=== PATIENT | female | born 1940 | race Caucasian/White ===

== ENCOUNTER 2020-11-23 16:10 | Inpatient (IN) | payer MEDICARE, SELFPAY ==
--- NOTE | ~2020-11-23 | XR_ITS ---
EXAMINATION: XR ABDOMEN KUB CLINICAL INDICATION: Bowel obstruction COMPARISON: None TECHNIQUE: AP view of the abdomen. FINDINGS: There is a mildly dilated small bowel loop in the left mid abdomen consistent with a mild small bowel bowel obstruction. No dilatation of large bowel. No radiopaque urinary calculi. Multilevel degenerative spondylosis of the spine. XR/XR KUB IMPRESSION: Dilated small bowel loops left midabdomen consistent with small bowel obstruction.
[2020-11-23 16:33] VITALS: BP 124/45; PULSE 87; RESP 16; TEMP 36.7; O2SAT 96; BMI 45.5
[2020-11-23 16:43] VITALS: BP 124/45; PULSE 87; RESP 16; TEMP 36.7; O2SAT 96
--- NOTE | 2020-11-23 17:19 | ED.ABDPAIN ---
HPI - Abdominal Pain General Chief Complaint: Abdominal Pain Stated Complaint: abd pain Time Seen by Provider: 11/23/20 17:19 Source: patient Mode of arrival: EMS Limitations: no limitations History of Present Illness HPI narrative: Patient had a fecal impaction in the past and a bowel obstruction in the past. Patient has had multiple surgeries for colon cancer. This has been starting for the past 2 days with increased abdominal distention. MD elicited complaint: abdominal pain Pertinent past history: constipation and other (bowel obstruction) Onset (ago): day(s) Pain Consistency: constant Location: periumbilical Severity: moderate Quality: aching and fullness Radiation: none Exacerbating factors: eating Relieving factors: nothing Associated symptoms: nausea and vomiting Related Data Home Medications Medication Instructions Recorded Confirmed albuterol sulfate 2.5 mg INHALATION Q4H PRN 11/23/20 11/23/20 albuterol sulfate [Ventolin HFA] 2 puff INHALATION Q6H PRN 11/23/20 11/23/20 amlodipine 5 mg PO DAILY 11/23/20 11/23/20 calcium carbonate-vitamin D3 1 cap PO DAILY 11/23/20 11/23/20 celecoxib [Celebrex] 200 mg PO BID 11/23/20 11/23/20 fexofenadine 180 mg PO DAILY 11/23/20 11/23/20 fluticasone propionate 1 spray INTRANASAL DAILY 11/23/20 11/23/20 gabapentin 400 mg PO TID 11/23/20 11/23/20 lisinopril 10 mg PO DAILY 11/23/20 11/23/20 mirtazapine 7.5 mg PO BEDTIME 11/23/20 11/23/20 multivitamin 1 tab PO DAILY 11/23/20 11/23/20 olopatadine 1 drp OPHTHALMIC (EYE) DAILY 11/23/20 11/23/20 omeprazole 20 mg PO BID 11/23/20 11/23/20 Allergies Allergy/AdvReac Type Severity Reaction Status Date / Time No Known Allergies Allergy Verified 11/24/20 14:58 Review of Systems Constitutional: Reports no additional constitutional complaints Eyes: Reports no additional eye complaints Denies dizziness Cardiovascular: Reports no additional cardiovascular complaints Respiratory: Reports as per HPI Gastrointestinal: Reports no additional gastrointestinal complaints Genitourinary: Reports no additional female genitourinary complaints Musculoskeletal: Reports no additional musculoskeletal complaints Skin/Breast: Denies rash Reports system reviewed and no additional complaints, except as documented, Denies dizziness and Denies Sensory deficit (Neuro) Psychiatric: Denies anxiety Physical Exam Vital Signs: Vital Signs: Last Vital Signs Temp 96.8 F 11/28/20 10:53 Pulse 78 11/28/20 10:53 Resp 20 11/28/20 10:53 BP 145/62 H 11/28/20 10:53 Pulse Ox 98 11/28/20 10:53 Body Mass Index 45.5 Const: Nutritional Appearance: obese Orientation/consciousness: oriented to person and patient oriented x3 Limitations: no limitations HENMT: Head: Yes normal to inspection Ears: external ears normal General nose exam: Normal external nose present Mouth: Normal oral and palatal mucosa present and oropharynx normal Throat: Yes posterior oropharynx normal Eyes: General: appearance normal, both eyes and all related structures Neck: Other: supple Neck: Yes normal visual inspection Chest: Chest palpation & inspection: normal inspection of the chest Resp: Auscultation: clear to auscultation bilaterally Cardio: Jugular venous distension: no JVD Rate: regular rate Rhythm: regular rhythm Heart sounds: S1 normal heart sound present and S2 normal heart sound present GI: Other: distended, hard, decreased BS, rectal no fecal impaction, no stool in vault : General: Yes no CVA tenderness Back/Spine/Pelvis: Back: no CVA tenderness Skin: General skin exam: no rashes or lesions noted Neuro: General: oriented to person and patient oriented x3 Cranial nerves: Yes CN's II-XII intact bilaterally Motor exam (neuro): 5/5 motor strength present throughout Sensory Exam: No Sensory deficit (Neuro) Extrem: General: Yes normal to inspection Psych: Appearance: grossly normal Course Course Course Narrative: patient with small bowel obstruction will admit and place NGT Reevaluation(s) Reevaluation #1: discussed with Dr. Butler, will admit Time: 19:06 MDM - Abdominal Pain Differential Diagnosis Differential diagnosis: Likely abdominal pain, bowel perforation, constipation and small bowel obstruction Differential diagnosis narrative:: History and KUB consistent with SBO will admit Lab Data Result diagrams: 11/25/20 05:43 11/28/20 04:11 Labs: Lab Results 11/23/20 11/23/20 Range/Units 17:43 17:43 WBC 13.3 H (4.8-10.8) X10*3/uL RBC 4.56 (4.20-5.50) X10*6/uL Hgb 13.3 (12.0-16.0) g/dl Hct 41.8 (37-47) % MCV 91.7 (80-98) fL MCH 29.2 (27.0-33.0) pg MCHC 31.8 (31.0-35.0) g/dl RDW 14.3 (11.0-16.0) % Plt Count 317 (160-400) X10*3/uL MPV 9.9 (9.4-12.3) fL Immature Gran % (Auto) 0.5 H (0.0-0.4) % Neut % (Auto) 74.3 H (45-73) % Lymph % (Auto) 18.6 L (20-40) % [place] % (Auto) 5.6 (2-11) % Eos % (Auto) 0.8 (0-4) % Baso % (Auto) 0.2 (0-2) % Lymph # (Auto) 2.5 (1.2-4.9) X10*3/uL [place] # (Auto) 0.8 (0.1-1.2) X10*3/uL Eos # (Auto) 0.1 (0.0-0.4) X10*3/uL Baso # (Auto) 0.0 (0.0-0.2) X10*3/uL Abs Immat Gran (auto) 0.06 H (0.00-0.03) X10*3/uL Absolute Neuts (auto) 9.9 H (2.0-8.3) X10*3/uL Absolute Nucleated RBC 0.000 (0.0-0.012) X10*3/uL Nucleated RBC % (auto) 0.0 (0.0-0.2) /100WBC Sodium 137 (135-145) mmol/L Potassium 4.9 (3.3-5.1) mmol/L Chloride 98 (96-108) mmol/L Carbon Dioxide 26 (22-29) mmol/L Anion Gap 18 (12-20) BUN 28 H (9-16) mg/dL Creatinine 0.95 (0.5-1.4) mg/dL Estim Creat Clear Calc 60.1 Estimated GFR 57 Random Glucose 119 H (60-115) mg/dL Calcium 9.5 (8.4-10.2) mg/dL Total Bilirubin 0.5 (0.0-1.0) mg/dL Direct Bilirubin 0.2 (0.0-0.5) mg/dL AST 26 (5-31) U/L ALT 22 (0-31) U/L Alkaline Phosphatase 59 (39-117) U/L Total Protein 7.0 (6.5-8.0) g/dL Albumin 4.0 (3.5-5.0) g/dL Lipase 20 (8-78) U/L Discharge Plan Discharge Clinical Impression: Small bowel obstruction Patient Disposition: Admitted As Inpatient Interventions: Admission Worksheet (ED) Last Done: 11/23/20 21:48 Discharge Date/Time: 11/23/20 21:49 [facility] Past Medical History Medical History (Updated 12/06/20 @ 00:01 by Mikaela Sow) Arthritis Asthma Fibromyalgia History of bronchitis Morbid obesity due to excess calories Surgical History (Updated 11/24/20 @ 14:56 by Milena Moore MD) History of bilateral knee replacement History of bunionectomy of right great toe History of section, classical History of partial colectomy History of total colectomy Family History Family History (Updated 11/24/20 @ 14:57 by Milena Moore MD) Mother Congestive heart failure Father Colon cancer Daughter No problems noted. Daughter No problems noted. Social History Social History (Updated 11/24/20 @ 14:57 by Milena Moore MD) Household Members: None Housing: Assisted Living Facility Do you presently have visiting nurse or other home services: Yes Alcohol intake: never service: No Current occupational status: unemployed and disabled
[2020-11-23 17:50] LABS: MANUAL DIFF FLAG NO
[2020-11-23 17:54] LABS: Basophils Percent Auto 0.2 % (0-2); Eosinophils Absolute Auto 0.1 X10*3/uL (0.0-0.4); Eosinophils Percent Auto 0.8 % (0-4); Hematocrit 41.8 % (37-47); Hemoglobin 13.3 g/dl (12.0-16.0); Imm Gran Abs Auto 0.06 X10*3/uL (0.00-0.03); Imm Gran Pct Auto 0.5 % (0.0-0.4); Lymphocytes Absolute Auto 2.5 X10*3/uL (1.2-4.9); Lymphocytes Percent Auto 18.6 % (20-40); Mean Corpuscular HGB Conc 31.8 g/dl (31.0-35.0); Mean Corpuscular Hemoglobin 29.2 pg (27.0-33.0); Mean Corpuscular Volume 91.7 fL (80-98); Mean Platelet Volume 9.9 fL (9.4-12.3); Monocytes Absolute Auto 0.8 X10*3/uL (0.1-1.2); Monocytes Percent Auto 5.6 % (2-11); Neutrophils Absolute Auto 9.9 X10*3/uL (2.0-8.3); Neutrophils Percent Auto 74.3 % (45-73); Platelet Count 317 X10*3/uL (160-400); Red Blood Count 4.56 X10*6/uL (4.20-5.50); Red Cell Distribution Width 14.3 % (11.0-16.0); White Blood Count 13.3 X10*3/uL (4.8-10.8)
[2020-11-23] MEDS: ondansetron HCL 4 MG/2 ML VIAL IVPUSH (18:12)
[2020-11-23] MEDS: 0.9 % Sodium Chloride 1,000 ML 125 ML IVCONT (18:12)
[2020-11-23 18:15] LABS: Alanine Aminotransferase 22 U/L (0-31); Alkaline Phosphatase 59 U/L (39-117); Anion Gap 18 (12-20); Aspartate Amino Transferase 26 U/L (5-31); Bilirubin Direct 0.2 mg/dL (0.0-0.5); Bilirubin Total 0.5 mg/dL (0.0-1.0); Blood Urea Nitrogen 28 mg/dL (9-16); Calcium 9.5 mg/dL (8.4-10.2); Carbon Dioxide 26 mmol/L (22-29); Chloride 98 mmol/L (96-108); Creatinine Clr Calc Pharmacy 60.1; Estimated Glomerular Filt Rate 57; Glucose Random 119 mg/dL (60-115); Lipase 20 U/L (8-78); Potassium 4.9 mmol/L (3.3-5.1); Sodium 137 mmol/L (135-145)
[2020-11-23 20:25] LABS: COVID-19 Test Negative (Negative)
[2020-11-23 22:17] VITALS: BP 149/67; PULSE 85; RESP 16; TEMP 36.3; O2SAT 97
[2020-11-23] MEDS: Heparin Sodium,Porcine 5,000 UNIT/ML VIAL 5000 UNIT SUBCUT (22:31)
[2020-11-23] MEDS: 0.9 % Sodium Chloride 1,000 ML 100 ML IVCONT (22:31)
[2020-11-23] MEDS: 0.9 % Sodium Chloride Flush 3 ML SYRINGE IVFLUSH (22:31)
[2020-11-23 23:49] VITALS: BP 163/63; PULSE 89; RESP 16; TEMP 36.1; O2SAT 95
[2020-11-24] VITALS (7 sets, daily range): BP systolic 128–158; BP diastolic 52–61; PULSE 76–90; RESP 16–18; TEMP 36.1–37.4; O2SAT 93–95
[2020-11-24] MEDS: Morphine Sulfate 4 MG/ML CARTRIDGE IVPUSH (00:38)
[2020-11-24] MEDS: Heparin Sodium,Porcine 5,000 UNIT/ML VIAL 5000 UNIT SUBCUT ×3 (06:04→21:24)
[2020-11-24] MEDS: 0.9 % Sodium Chloride 1,000 ML 100 ML IVCONT ×2 (06:06→16:37)
--- NOTE | 2020-11-24 13:44 | P.HPGS_ITS ---
History of Present Illness History of Present Illness Date of Service: 11/24/20 Chief complaint: Small bowel obstruction Narrative: Ginny Tovar is a 80 year old female with a history of a partial colectomy and a completion colectomy who has a history of small-bowel obstructions previously. Patient presented to the emergency department yesterday after having a 2 day history of abdominal distention and central abdominal pain that radiated from the left to right that she reports became greater than a 10/10 on a pain scale. She reports 3 days ago she had a lobster and thereafter became distended. Her last bowel movement was 3 days ago but she reports having a small bowel movement this morning. She reports having burping in acid reflux once she had decrease in bowel function. Her last known bowel obstruction was in 2009. Patient had some nausea and vomiting 2 days ago. She reports her abdominal pain is significantly improved since admission and is down to 5/10. She no longer has nausea or vomiting. Patient's last colonoscopy was in August of this year and was reported to be normal. Patient has not been out of bed to ambulate. She reports she still is not passing much gas from her bottom although she has had 2 small bowel movements since admission 1 last night in the emergency department. She denies fever, chills, chest pain. She has mild shortness of breath with exertion. Review of Systems Constitutional: Constitutional: Denies chills, Reports difficulty sleeping, Denies excessive sweating, Reports fatigue, Denies fever(s), Denies headache(s), Denies night sweats, Reports weakness and Denies weight loss Eyes: Eyes: Denies blurry vision, Denies diplopia, Denies eye discharge and Reports requires corrective lenses ENT: Reports Normal hearing present, Denies change in voice, Denies headache(s), Denies neck mass, Denies sore throat, Denies throat swelling and Denies tongue swelling Cardiovascular: Cardiovascular: Denies chest pain, Denies chest pain at rest, Denies chest pain with activity, Denies edema, Denies leg edema and Denies dyspnea on exertion Respiratory: Respiratory: Denies cough, Denies excessive phlegm production, Denies dyspnea on exertion, Denies stridor and Denies wheezing Gastrointestinal: Gastrointestinal: Reports abdominal pain, Denies melena, Denies bloating, Denies hematochezia, Denies constipation, Reports heartburn, Denies nausea and Denies vomiting Genitourinary: Genitourinary: Denies hematuria, Denies dysuria, Reports urinary incontinence, Denies urinary hesitancy and Denies urinary urgency Musculoskeletal: Musculoskeletal: Denies back pain, Reports arthralgias and Reports muscle weakness Integumentary/Breasts: Skin/Breast: Denies breast swelling, Denies breast pain, Denies breast mass, Denies change in pigmentation, Denies new lesions and Denies rash Neurologic: Reports Normal hearing present, Denies confusion, Denies headache(s), Denies lack of coordination, Denies focal weakness, Denies paresthesias and Reports weakness Psychiatric: Psychiatric: Denies anxiety, Denies confusion and Denies depression Endocrine: Endocrine: Denies cold intolerance, Denies excessive sweating and Reports fatigue Hematologic/Lymphatic: Hematologic/Lymphatic: Denies easy bleeding, Denies easy bruising and Denies lymphadenopathy Allergic/Immunologic: Allergic/Immunologic: Denies urticaria, Denies throat swelling, Denies tongue swelling and Denies wheezing PMFSH Past Medical History Medical History (Updated 11/24/20 @ 14:56 by Milena Moore MD) Arthritis Asthma Fibromyalgia History of bronchitis Morbid obesity due to excess calories Family History Family History (Updated 11/24/20 @ 14:57 by Milena Moore MD) Mother Congestive heart failure Father Colon cancer Daughter No problems noted. Daughter No problems noted. Surgical History Surgical History (Updated 11/24/20 @ 14:56 by Milena Moore MD) History of bilateral knee replacement History of bunionectomy of right great toe History of section, classical History of partial colectomy History of total colectomy Social History Social History (Updated 11/24/20 @ 14:57 by Milena Moore MD) Household Members: None Housing: Assisted Living Facility Do you presently have visiting nurse or other home services: Yes Alcohol intake: never Smoking Status: Former smoker Smoking Quit Date: 1983 Use of substances other than those prescribed or required for medical reasons: No Currently Displaying Signs/Symptoms of Drug Intoxication Withdrawal: No Have you been hit, kicked, punched, or otherwise hurt by someone within the past year? If so, by whom?: No Do you feel safe in your current relationship?: Yes Is there a partner from a previous relationship who is making you feel unsafe now?: No Are you made to feel afraid or neglected: No Advance Directives: No Advance Directives Information Provided: No Do you have thoughts of harming others: None Do you have a plan to hurt others: No Plan Recently lost weight without trying: No Nutrition Risks: No Nutritional Risk Patient : No : No Poor oral hygiene: No service: No Current occupational status: unemployed and disabled Meds Allergies Allergy/AdvReac Type Severity Reaction Status Date / Time No Known Allergies Allergy Verified 11/24/20 14:58 Active Medications: Current Medications Generic Name Dose Route Start Last Admin Trade Name Freq PRN Reason Stop Dose Admin Acetaminophen 650 mg 11/23/20 19:18 Acetaminophen 325 Mg Tablet PO Q6H PRN Fever >100.4 Diphenhydramine HCl 25 mg 11/23/20 19:18 Diphenhydramine Hcl 50 Mg/Ml Vial IVPUSH Q6H PRN Itching Heparin Sodium (Porcine) 5,000 unit 11/23/20 22:00 11/24/20 06:04 Heparin Sodium,Porcine 5,000 Unit/Ml Vial SUBCUT 5,000 unit Q8H FERNIE Administration Sodium Chloride 1,000 mls @ 100 mls/hr 11/23/20 19:30 11/24/20 06:06 Ns IVCONT 100 mls/hr .Q10H FERNIE Administration Morphine Sulfate 2 mg 11/23/20 19:18 Morphine Sulfate 2 Mg/Ml Cartridge IVPUSH Q3H PRN Pain, Moderate (Pain Scale 4-6 Morphine Sulfate 4 mg 11/23/20 19:18 11/24/20 00:38 Morphine Sulfate 4 Mg/Ml Cartridge IVPUSH 4 mg Q3H PRN Administration Pain, Severe (Pain Scale 7-10) Multi-Ingred Medicated Throat [place] 1 spray 11/24/20 09:11 Throat [place], Medicated 20 Ml Bottle MUCOUS MEM Q2H PRN Sore Throat Ondansetron HCl 4 mg 11/23/20 19:18 Ondansetron Hcl 4 Mg/2 Ml Vial IVPUSH Q4H PRN Nausea Sodium Chloride 3 ml 11/24/20 00:00 11/24/20 08:42 0.9 % Sodium Chloride Flush 3 Ml Syringe IVFLUSH Not Given QSHIFT ON LICENSE OF [facility] Home Medications Medication Instructions Recorded Confirmed Last Taken Type albuterol sulfate 2.5 mg INHALATION Q4H PRN 11/23/20 11/23/20 Unknown History albuterol sulfate [Ventolin HFA] 2 puff INHALATION Q6H PRN 11/23/20 11/23/20 Unknown History amlodipine 5 mg PO DAILY 11/23/20 11/23/20 11/23/20 History calcium carbonate-vitamin D3 1 cap PO DAILY 11/23/20 11/23/20 11/23/20 History [Calcium 600 with Vitamin D3] celecoxib [Celebrex] 200 mg PO BID 11/23/20 11/23/20 11/23/20 History fexofenadine 180 mg PO DAILY 11/23/20 11/23/20 11/23/20 History fluticasone propionate [Flonase] 1 spray INTRANASAL DAILY 11/23/20 11/23/20 11/23/20 History gabapentin 400 mg PO TID 11/23/20 11/23/20 11/23/20 History lisinopril 10 mg PO DAILY 11/23/20 11/23/20 11/23/20 History mirtazapine 7.5 mg PO BEDTIME 11/23/20 11/23/20 11/23/20 History multivitamin 1 tab PO DAILY 11/23/20 11/23/20 11/23/20 History olopatadine 1 drp OPHTHALMIC (EYE) DAILY 11/23/20 11/23/20 Unknown History omeprazole 20 mg PO BID 11/23/20 11/23/20 11/23/20 History Physical Exam Vital Signs: Vital Signs: Last Vital Signs Temp 97.4 F 11/24/20 12:00 Pulse 79 11/24/20 12:00 Resp 18 11/24/20 12:00 BP 158/61 H 11/24/20 12:00 Pulse Ox 95 11/24/20 12:00 Body Mass Index 45.5 Const: General: No confusion Orientation/consciousness: No confusion HENMT: Head: Yes normal to inspection, Yes normocephalic and Yes atraumatic Ears: hearing grossly normal bilaterally Mouth: Normal oral and palatal mucosa present Throat: Yes posterior oropharynx normal Eyes: General: appearance normal, both eyes and all related structures Sclerae: sclerae normal EOM: EOMs intact bilaterally Neck: Neck: Yes normal visual inspection, Yes no lymphadenopathy and Yes trachea midline Thyroid: Thyroid normal Resp: Effort & Inspection: normal respiratory effort and able to speak in complete sentences Auscultation: clear to auscultation bilaterally Cardio: Jugular venous distension: no JVD Heart sounds: S1 normal heart sound present and S2 normal heart sound present GI: Other: Abdomen is obese, soft, mildly distended. There is minimal tenderness to deep palpation in the central abdomen. There is no rebound or guarding. There are no hernias mass appreciated. Inspection: Yes incision (Well-healed midline surgical scar) Skin: Other: Bilateral anterior shins with ecchymosis secondary to recent fall Neuro: General: No confusion Cranial nerves: Yes Normal hearing present Extrem: Other: Bilateral anterior [place] ecchymosis with mild tenderness over the ecchymoses. 1+ pitting edema bilateral lower extremities Results Results Labs: Short CBC 11/23/20 Range/Units 17:43 WBC 13.3 H (4.8-10.8) X10*3/uL Hgb 13.3 (12.0-16.0) g/dl Hct 41.8 (37-47) % Plt Count 317 (160-400) X10*3/uL BMP 11/23/20 17:43 Sodium 137 Potassium 4.9 Chloride 98 Carbon Dioxide 26 BUN 28 H Creatinine 0.95 Calcium 9.5 Liver Function 11/23/20 Range/Units 17:43 Total Bilirubin 0.5 (0.0-1.0) mg/dL Direct Bilirubin 0.2 (0.0-0.5) mg/dL AST 26 (5-31) U/L ALT 22 (0-31) U/L Alkaline Phosphatase 59 (39-117) U/L Albumin 4.0 (3.5-5.0) g/dL Assessment and Plan (1) Small bowel obstruction: Status: Acute This is a 80-year-old lady with history of colectomy x2 and history of small-bowel obstructions in the past who presents with symptoms that are similar to her previous small-bowel obstructions. Patient currently has an NG tube in place and is NPO on bowel rest. She has had 2 small bowel movements this morning. We will wait for further evidence of return of bowel function. Patie nt was encouraged to ambulate in the hallway at least 3 times a day and will be able to have her NG tube clamped for ambulation. I have reordered a basic metabolic panel for tomorrow to evaluate electrolyte levels and we will replete as needed. Will continue NPO status and to there is more evidence of bowel function return. I spent 45 minutes with this patient reviewing radiologic studies laboratory values obtaining history and physical exam and documenting.
--- NOTE | 2020-11-24 14:50 | MHC.CM.PN ---
CM MET WITH PT WHO REPORTS SHE LIVES ALONE AND HAS DAILY TURBO OPERATOR SERVICES. PT REPORTS SHE IS COMPLETELY DEPENDENT FOR ALL CARE AND THE TURBO OPERATOR DOES EVERYTHING . SHE REPORTS THEY ASSIST HER IN TRANSFERRING TO HER W/C OR SCOOTER AND THEY DRIVE HER TO HER APPOINTMENTS WELL. PT REPORTS SHE HAS A HOSPITAL BED, WHEEL CHAIR, SCOOTER, ROLLATOR AND OTHER DME AT HOME. PT REPORTS SHE HAS A HCP THAT NAMES HER TURBO OPERATOR AND DAUGHTER HER AGENTS. IMM DELIVERED CURRENT DC PLAN IS HOME WITH RESUMPTION OF TURBO OPERATOR SERVICES TURBO OPERATOR TO TRANSPORT
[2020-11-24] MEDS: Morphine Sulfate 2 MG/ML CARTRIDGE IVPUSH ×2 (16:37→21:27)
[2020-11-24] MEDS: Famotidine/PF 20 MG/2 ML VIAL IVPUSH (16:37)
[2020-11-24] MEDS: 0.9 % Sodium Chloride Flush 3 ML SYRINGE IVFLUSH (16:43)
[2020-11-25] VITALS (7 sets, daily range): BP systolic 142–181; BP diastolic 52–84; PULSE 68–80; RESP 16–19; TEMP 36–36.6; O2SAT 94–99
[2020-11-25] MEDS: 0.9 % Sodium Chloride 1,000 ML 100 ML IVCONT ×3 (02:57→21:49)
[2020-11-25 06:05] LABS: Hematocrit 36.3 % (37-47); Hemoglobin 11.5 g/dl (12.0-16.0); Mean Corpuscular HGB Conc 31.7 g/dl (31.0-35.0); Mean Corpuscular Hemoglobin 29.2 pg (27.0-33.0); Mean Corpuscular Volume 92.1 fL (80-98); Mean Platelet Volume 9.9 fL (9.4-12.3); Platelet Count 243 X10*3/uL (160-400); Red Blood Count 3.94 X10*6/uL (4.20-5.50); Red Cell Distribution Width 13.9 % (11.0-16.0)
[2020-11-25] MEDS: Heparin Sodium,Porcine 5,000 UNIT/ML VIAL 5000 UNIT SUBCUT ×3 (06:08→21:49)
[2020-11-25 06:29] LABS: Carbon Dioxide 28 mmol/L (22-29); Chloride 105 mmol/L (96-108); Potassium 3.8 mmol/L (3.3-5.1); Sodium 141 mmol/L (135-145)
[2020-11-25 06:30] LABS: Anion Gap 12 (12-20); Blood Urea Nitrogen 17 mg/dL (9-16); Calcium 7.8 mg/dL (8.4-10.2); Creatinine Clr Calc Pharmacy 77.2; Estimated Glomerular Filt Rate > 60; Glucose Random 109 mg/dL (60-115)
[2020-11-25] MEDS: Famotidine/PF 20 MG/2 ML VIAL IVPUSH (08:10)
[2020-11-25] MEDS: 0.9 % Sodium Chloride Flush 3 ML SYRINGE IVFLUSH (08:10)
--- NOTE | 2020-11-25 08:16 | P.PNGS_ITS ---
Subjective Subjective Date of Service: 11/25/20 Interval history: Patient sitting up in chair reports passing several small bowel movements. Denies significant abdominal pain. Nasogastric tube is producing bilious fluid, approximately 2400 mL in the last 24 hours. Physical Exam Vital Signs: Vital Signs: Last Vital Signs Temp 97.0 F 11/25/20 08:00 Pulse 80 11/25/20 08:00 Resp 18 11/25/20 08:00 BP 159/63 H 11/25/20 08:00 Pulse Ox 94 11/25/20 08:00 Body Mass Index 45.5 Const: General: cooperative, comfortable and no acute distress HENMT: Other: NG tube in place Eyes: Sclerae: sclerae normal GI: Other: Soft, obese, no tenderness to deep palpation, no rebound or guarding Skin: Other: Warm, dry, no rash Extrem: Other: Pedal edema Progress Note: A&P Assessment and plan (1) Small bowel obstruction: Status: Acute Assessment and Plan: 80-year-old female patient status post colectomy x2 presenting for small-bowel obstruction. Patient denies any further nausea or vomiting. She reports several small bowel movements but no flatus. Nasogastric tube remains in place producing a high output at this time. Abdomen is soft and nondistended, nontender. Small-bowel obstruction appears to be improving but is still having high outputs from the is a gastric tube. Continue current management. Will need to restart patient medication she is back on p.o. Fall Risk Details Current Medications: Current Medications Generic Name Dose Route Start Last Admin Trade Name Freq PRN Reason Stop Dose Admin Acetaminophen 650 mg 11/23/20 19:18 Acetaminophen 325 Mg Tablet PO Q6H PRN Fever >100.4 Albuterol Sulfate 2 puff 11/24/20 15:08 Albuterol Sulfate 90 Mcg 8 Gm Inhaler INHALE RQ4H PRN Wheezing Diphenhydramine HCl 25 mg 11/23/20 19:18 Diphenhydramine Hcl 50 Mg/Ml Vial IVPUSH Q6H PRN Itching Famotidine 20 mg 11/24/20 16:00 11/24/20 16:37 Famotidine/Pf 20 Mg/2 Ml Vial IVPUSH 20 mg DAILY FERNIE Administration Heparin Sodium (Porcine) 5,000 unit 11/23/20 22:00 05/15/21 06:08 Heparin Sodium,Porcine 5,000 Unit/Ml Vial SUBCUT 5,000 unit Q8H FERNIE Administration Sodium Chloride 1,000 mls @ 100 mls/hr 11/23/20 19:30 11/25/20 02:57 Ns IVCONT 100 mls/hr .Q10H FERNIE Administration Morphine Sulfate 2 mg 11/23/20 19:18 11/24/20 21:27 Morphine Sulfate 2 Mg/Ml Cartridge IVPUSH 2 mg Q3H PRN Administration Pain, Moderate (Pain Scale 4-6 Morphine Sulfate 4 mg 11/23/20 19:18 11/24/20 00:38 Morphine Sulfate 4 Mg/Ml Cartridge IVPUSH 4 mg Q3H PRN Administration Pain, Severe (Pain Scale 7-10) Multi-Ingred Medicated Throat [place] 1 spray 11/24/20 09:11 11/24/20 21:24 Throat [place], Medicated 20 Ml Bottle MUCOUS MEM 1 spray Q2H PRN Administration Sore Throat Ondansetron HCl 4 mg 11/23/20 19:18 Ondansetron Hcl 4 Mg/2 Ml Vial IVPUSH Q4H PRN Nausea Sodium Chloride 3 ml 11/24/20 00:00 11/24/20 21:24 0.9 % Sodium Chloride Flush 3 Ml Syringe IVFLUSH Not Given QSHIFT FERNIE Time Spent With Patient Time: Total time spent is greater than 50% in coordination of care (as documented) at patient's floor/unit and/or counseling patient: Time with patient: 15 - 24 minutes
[2020-11-25] MEDS: ondansetron HCL 4 MG/2 ML VIAL IVPUSH (08:18)
[2020-11-25] MEDS: Morphine Sulfate 2 MG/ML CARTRIDGE IVPUSH (08:18)
[2020-11-26 04:00] VITALS: BP 178/64; PULSE 75; RESP 18; TEMP 36.6; O2SAT 94
[2020-11-26] MEDS: Heparin Sodium,Porcine 5,000 UNIT/ML VIAL 5000 UNIT SUBCUT ×3 (05:57→19:43)
[2020-11-26] MEDS: 0.9 % Sodium Chloride 1,000 ML 100 ML IVCONT ×2 (06:00→15:33)
[2020-11-26] MEDS: Famotidine/PF 20 MG/2 ML VIAL IVPUSH (07:52)
[2020-11-26 08:00] VITALS: BP 169/69; PULSE 75; RESP 18; TEMP 36.2; O2SAT 94
--- NOTE | 2020-11-26 09:17 | PM.PNGS ---
Subjective Subjective Date of Service: 11/26/20 Interval history: Ginny Tovar reports feeling weak this morning as she has not eaten in 1 week. She reports a small bowel movement yesterday but nasogastric tube output remains high at 2200 mL/ 24 hours. Physical Exam Vital Signs: Vital Signs: Last Vital Signs Temp 97.1 F 11/26/20 08:00 Pulse 75 11/26/20 08:00 Resp 18 11/26/20 08:00 BP 169/69 H 11/26/20 08:00 Pulse Ox 94 11/26/20 08:00 Body Mass Index 45.5 Const: Other: Awake, alert, sitting up in a chair, nasogastric tube in place draining thin bilious material Resp: Other: no respiratory distress, breathing comfortably on room air GI: Other: obese, soft, no tenderness to palpation, no tympany to percussion Skin: Other: warm, dry, no rash Extrem: General: Yes pedal edema Progress Note: A&P Assessment and plan (1) Small bowel obstruction: Status: Acute Assessment and Plan: 80-year-old female patient status post colectomy x2 presenting for small-bowel obstruction. Patient denies any further nausea or vomiting but is feeling weak today but understands she cannot eat due to the high nasogastric tube output. She reports several small bowel movements but no flatus. Nasogastric tube remains in place producing a high output at this time. Abdomen is soft and nondistended, nontender. Small-bowel obstruction appears to be improving but is still having high outputs from the is a gastric tube. May need to consider TPN via PICC line if prolonged obstruction. Continue NPO, IV Fluids Fall Risk Details Current Medications: Current Medications Generic Name Dose Route Start Last Admin Trade Name Freq PRN Reason Stop Dose Admin Acetaminophen 650 mg 11/23/20 19:18 Acetaminophen 325 Mg Tablet PO Q6H PRN Fever >100.4 Albuterol Sulfate 2 puff 11/24/20 15:08 Albuterol Sulfate 90 Mcg 8 Gm Inhaler INHALE RQ4H PRN Wheezing Diphenhydramine HCl 25 mg 11/23/20 19:18 Diphenhydramine Hcl 50 Mg/Ml Vial IVPUSH Q6H PRN Itching Famotidine 20 mg 11/24/20 16:00 11/26/20 07:52 Famotidine/Pf 20 Mg/2 Ml Vial IVPUSH 20 mg DAILY FERNIE Administration Heparin Sodium (Porcine) 5,000 unit 11/23/20 22:00 11/26/20 05:57 Heparin Sodium,Porcine 5,000 Unit/Ml Vial SUBCUT 5,000 unit Q8H FERNIE Administration Sodium Chloride 1,000 mls @ 100 mls/hr 11/23/20 19:30 11/26/20 06:00 Ns IVCONT 100 mls/hr .Q10H FERNIE Administration Morphine Sulfate 2 mg 11/23/20 19:18 11/25/20 08:18 Morphine Sulfate 2 Mg/Ml Cartridge IVPUSH 2 mg Q3H PRN Administration Pain, Moderate (Pain Scale 4-6 Morphine Sulfate 4 mg 11/23/20 19:18 11/24/20 00:38 Morphine Sulfate 4 Mg/Ml Cartridge IVPUSH 4 mg Q3H PRN Administration Pain, Severe (Pain Scale 7-10) Multi-Ingred Medicated Throat [place] 1 spray 11/24/20 09:11 11/24/20 21:24 Throat [place], Medicated 20 Ml Bottle MUCOUS MEM 1 spray Q2H PRN Administration Sore Throat Ondansetron HCl 4 mg 11/23/20 19:18 11/25/20 08:18 Ondansetron Hcl 4 Mg/2 Ml Vial IVPUSH 4 mg Q4H PRN Administration Nausea Sodium Chloride 3 ml 11/24/20 00:00 11/26/20 07:50 0.9 % Sodium Chloride Flush 3 Ml Syringe IVFLUSH Not Given QSHIFT FERNIE Time Spent With Patient Time: Total time spent is greater than 50% in coordination of care (as documented) at patient's floor/unit and/or counseling patient: Time with patient: 15 - 24 minutes
[2020-11-26 11:32] VITALS: BP 162/65; PULSE 73; RESP 18; TEMP 36.7; O2SAT 96
--- NOTE | 2020-11-26 14:21 | PC.NURSE ---
NG Tube patent. OOB to BR sev times. Passing flatus, Had sm liq stool. 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
[2020-11-26] MEDS: Acetaminophen 325 MG TABLET 650 MG PO (15:31)
[2020-11-26 15:48] VITALS: BP 178/80; PULSE 73; RESP 16; TEMP 36.7; O2SAT 97
[2020-11-26 19:36] VITALS: BP 177/59; PULSE 74; RESP 16; TEMP 36.1; O2SAT 97
[2020-11-26] MEDS: ondansetron HCL 4 MG/2 ML VIAL IVPUSH (22:45)
[2020-11-27] VITALS: BP 176/67; PULSE 72; RESP 18; TEMP 36.4; O2SAT 94
[2020-11-27] MEDS: ondansetron HCL 4 MG/2 ML VIAL IVPUSH (03:29)
[2020-11-27 04:00] VITALS: BP 176/65; PULSE 74; RESP 16; TEMP 36.7; O2SAT 93
[2020-11-27] MEDS: Heparin Sodium,Porcine 5,000 UNIT/ML VIAL 5000 UNIT SUBCUT ×3 (06:38→21:01)
[2020-11-27] MEDS: 0.9 % Sodium Chloride 1,000 ML 100 ML IVCONT ×2 (07:14→14:06)
[2020-11-27 08:00] VITALS: BP 145/56; PULSE 70; RESP 18; TEMP 36.3; O2SAT 95
[2020-11-27] MEDS: Famotidine/PF 20 MG/2 ML VIAL IVPUSH (08:48)
--- NOTE | 2020-11-27 09:14 | P.PNGS_ITS ---
Subjective Subjective Date of Service: 11/27/20 Interval history: Patient feels well today. She reports mild soreness in the right upper quadrant. She reports for the most part her pain has resolved. She has been up and ambulating to the bathroom. She has had multiple bowel movements and she is passing gas. She denies any nausea vomiting. She pulled out her NG tube last evening secondary to sore throat. Vital signs are within normal limits. Patient has not had any laboratory values over the weekend. Physical Exam Vital Signs: Vital Signs: Last Vital Signs Temp 97.4 F 11/27/20 08:00 Pulse 70 11/27/20 08:00 Resp 18 11/27/20 08:00 BP 145/56 H 11/27/20 08:00 Pulse Ox 95 11/27/20 08:00 Body Mass Index 45.5 Const: General: No confusion Orientation/consciousness: No confusion HENMT: Head: Yes normal to inspection, Yes normocephalic and Yes atraumatic Ears: hearing grossly normal bilaterally Mouth: Normal oral and palatal mucosa present Throat: Yes posterior oropharynx normal Eyes: General: appearance normal, both eyes and all related structures Sclerae: sclerae normal EOM: EOMs intact bilaterally Neck: Neck: Yes normal visual inspection, Yes no lymphadenopathy and Yes trachea midline Thyroid: Thyroid normal Resp: Effort & Inspection: normal respiratory effort and able to speak in complete sentences Auscultation: clear to auscultation bilaterally Cardio: Jugular venous distension: no JVD Heart sounds: S1 normal heart sound present and S2 normal heart sound present GI: Other: Abdomen is obese soft nondistended nontender. Inspection: Yes incision (Well-healed midline surgical scar) Skin: Other: Bilateral anterior shins with ecchymosis secondary to recent fall Neuro: General: No confusion Cranial nerves: Yes Normal hearing present Extrem: Other: Bilateral anterior canseco ecchymosis with mild tenderness over the ecchymoses. 1+ pitting edema bilateral lower extremities Progress Note: A&P Assessment and plan (1) Small bowel obstruction: Status: Acute Assessment and Plan: 80-year-old female patient status post colectomy x2 presenting for small-bowel obstruction. Patient has evidence of bowel function return with multiple bowel movements and passing gas. NG tube has been removed. Patient was started on clear liquid diet and continue to ambulate. If she is tolerating clear liquid diet throughout the day today will advance her diet tomorrow and likely discharge her home tomorrow. Fall Risk Details Current Medications: Current Medications Generic Name Dose Route Start Last Admin Trade Name Sarika PRN Reason Stop Dose Admin Acetaminophen 650 mg 11/23/20 19:18 11/26/20 15:31 Acetaminophen 325 Mg Tablet PO 650 mg Q6H PRN Administration Fever >100.4 Albuterol Sulfate 2 puff 11/24/20 15:08 Albuterol Sulfate 90 Mcg 8 Gm Inhaler INHALE RQ4H PRN Wheezing Diphenhydramine HCl 25 mg 11/23/20 19:18 Diphenhydramine Hcl 50 Mg/Ml Vial IVPUSH Q6H PRN Itching Famotidine 20 mg 11/24/20 16:00 11/27/20 08:48 Famotidine/Pf 20 Mg/2 Ml Vial IVPUSH 20 mg DAILY FERNIE Administration Heparin Sodium (Porcine) 5,000 unit 11/23/20 22:00 11/27/20 06:38 Heparin Sodium,Porcine 5,000 Unit/Ml Vial SUBCUT 5,000 unit Q8H FERNIE Administration Sodium Chloride 1,000 mls @ 100 mls/hr 11/27/20 07:00 11/27/20 07:14 Ns IVCONT 100 mls/hr .Q10H FERNIE Administration Morphine Sulfate 2 mg 11/23/20 19:18 11/25/20 08:18 Morphine Sulfate 2 Mg/Ml Cartridge IVPUSH 2 mg Q3H PRN Administration Pain, Moderate (Pain Scale 4-6 Morphine Sulfate 4 mg 11/23/20 19:18 11/24/20 00:38 Morphine Sulfate 4 Mg/Ml Cartridge IVPUSH 4 mg Q3H PRN Administration Pain, Severe (Pain Scale 7-10) Multi-Ingred Medicated Throat [place] 1 spray 11/24/20 09:11 11/24/20 21:24 Throat [place], Medicated 20 Ml Bottle MUCOUS MEM 1 spray Q2H PRN Administration Sore Throat Ondansetron HCl 4 mg 11/23/20 19:18 11/27/20 03:29 Ondansetron Hcl 4 Mg/2 Ml Vial IVPUSH 4 mg Q4H PRN Administration Nausea Sodium Chloride 3 ml 11/24/20 00:00 11/27/20 08:49 0.9 % Sodium Chloride Flush 3 Ml Syringe IVFLUSH Not Given QSHIFT FERNIE Time Spent With Patient Time: Total time spent is greater than 50% in coordination of care (as documented) at patient's floor/unit and/or counseling patient: Time with patient: less than 15 minutes
[2020-11-27 09:54] LABS: Anion Gap 15 (12-20); Blood Urea Nitrogen 15 mg/dL (9-16); Calcium 7.5 mg/dL (8.4-10.2); Carbon Dioxide 29 mmol/L (22-29); Chloride 106 mmol/L (96-108); Creatinine Clr Calc Pharmacy 80.4; Estimated Glomerular Filt Rate > 60; Glucose Random 108 mg/dL (60-115); Potassium 3.4 mmol/L (3.3-5.1); Sodium 147 mmol/L (135-145)
[2020-11-27 10:34] LABS: Magnesium 1.3 mg/dL (1.6-2.6)
[2020-11-27 11:29] VITALS: BP 161/57; PULSE 72; RESP 18; TEMP 36.3; O2SAT 95
[2020-11-27] MEDS: Magnesium Sulfate/H2O 2 GM/50 ML PIGGYBACK IV ×2 (13:50→17:56)
[2020-11-27] MEDS: Potassium Chloride Packet 20 MEQ PACKET 40 MEQ PO (13:51)
--- NOTE | 2020-11-27 15:23 | MHC.CM.PN ---
PER SURGICAL PROGRESS NOTE, STATUS POST TWO DAYS. CASE MANAGEMENT FOLLOWING FOR DISCHARGE PLAN AND RESUMPTION OF PHOTO CHECKER SERVICES.
[2020-11-27 15:42] VITALS: BP 131/54; PULSE 69; RESP 16; TEMP 36.7; O2SAT 96
[2020-11-27 19:10] VITALS: BP 133/59; PULSE 68; RESP 14; TEMP 36.2; O2SAT 97
[2020-11-28] VITALS: BP 149/79; PULSE 83; RESP 18; TEMP 36.8; O2SAT 94
[2020-11-28] MEDS: 0.9 % Sodium Chloride 1,000 ML 100 ML IVCONT ×2 (01:01→10:12)
[2020-11-28 03:55] VITALS: BP 153/60; PULSE 76; RESP 20; TEMP 36.7; O2SAT 97
[2020-11-28 04:55] LABS: Potassium 3.2 mmol/L (3.3-5.1)
[2020-11-28] MEDS: Heparin Sodium,Porcine 5,000 UNIT/ML VIAL 5000 UNIT SUBCUT (05:00)
[2020-11-28 06:55] VITALS: BP 142/68; PULSE 72; RESP 20; TEMP 35.5; O2SAT 96
[2020-11-28] MEDS: Famotidine/PF 20 MG/2 ML VIAL IVPUSH (08:52)
--- NOTE | 2020-11-28 09:30 | P.PNGS_ITS ---
Subjective Subjective Date of Service: 11/28/20 Interval history: Patient feeling well today. She tolerated clear liquid diet and has been up ambulating. She is moving her bowels without difficulty. She denies abdominal pain. Patient's potassium is still low at 3.2 today magnesium responded adequately to replacement. I will give her more potassium chloride today. Physical Exam Vital Signs: Vital Signs: Last Vital Signs Temp 96 F L 11/28/20 06:55 Pulse 72 11/28/20 06:55 Resp 20 11/28/20 06:55 BP 142/68 H 11/28/20 06:55 Pulse Ox 96 11/28/20 06:55 Body Mass Index 45.5 Const: General: No confusion Orientation/consciousness: No confusion HENMT: Head: Yes normal to inspection, Yes normocephalic and Yes atraumatic Ears: hearing grossly normal bilaterally Mouth: Normal oral and palatal mucosa present Throat: Yes posterior oropharynx normal Eyes: General: appearance normal, both eyes and all related structures Sclerae: sclerae normal EOM: EOMs intact bilaterally Neck: Neck: Yes normal visual inspection, Yes no lymphadenopathy and Yes trachea midline Thyroid: Thyroid normal Resp: Effort & Inspection: normal respiratory effort and able to speak in complete sentences Auscultation: clear to auscultation bilaterally Cardio: Jugular venous distension: no JVD Heart sounds: S1 normal heart sound present and S2 normal heart sound present GI: Other: Abdomen is obese soft nondistended nontender. Inspection: Yes incision (Well-healed midline surgical scar) Skin: Other: Bilateral anterior shins with ecchymosis secondary to recent fall Neuro: General: No confusion Cranial nerves: Yes Normal hearing present Extrem: Other: Bilateral anterior canseco ecchymosis with mild tenderness over the ecchymoses. 1+ pitting edema bilateral lower extremities Progress Note: A&P Assessment and plan (1) Small bowel obstruction: Status: Acute Assessment and Plan: 80-year-old female patient status post colectomy x2 presenting for small-bowel obstruction. Patient has evidence of bowel function return with multiple bowel movements and passing gas. Patient will be advanced to regular diet. However replace potassium with potassium chloride. If patient is tolerating diet later on today she will be discharged home. Fall Risk Details Current Medications: Current Medications Generic Name Dose Route Start Last Admin Trade Name Freq PRN Reason Stop Dose Admin Acetaminophen 650 mg 11/23/20 19:18 11/26/20 15:31 Acetaminophen 325 Mg Tablet PO 650 mg Q6H PRN Administration Fever >100.4 Albuterol Sulfate 2 puff 11/24/20 15:08 Albuterol Sulfate 90 Mcg 8 Gm Inhaler INHALE RQ4H PRN Wheezing Diphenhydramine HCl 25 mg 11/23/20 19:18 Diphenhydramine Hcl 50 Mg/Ml Vial IVPUSH Q6H PRN Itching Famotidine 20 mg 11/24/20 16:00 11/28/20 08:52 Famotidine/Pf 20 Mg/2 Ml Vial IVPUSH 20 mg DAILY FERNIE Administration Heparin Sodium (Porcine) 5,000 unit 11/23/20 22:00 11/28/20 05:00 Heparin Sodium,Porcine 5,000 Unit/Ml Vial SUBCUT 5,000 unit Q8H FERNIE Administration Sodium Chloride 1,000 mls @ 100 mls/hr 11/27/20 07:00 11/28/20 01:01 Ns IVCONT 100 mls/hr .Q10H FERNIE Administration Morphine Sulfate 2 mg 11/23/20 19:18 11/25/20 08:18 Morphine Sulfate 2 Mg/Ml Cartridge IVPUSH 2 mg Q3H PRN Administration Pain, Moderate (Pain Scale 4-6 Morphine Sulfate 4 mg 11/23/20 19:18 11/24/20 00:38 Morphine Sulfate 4 Mg/Ml Cartridge IVPUSH 4 mg Q3H PRN Administration Pain, Severe (Pain Scale 7-10) Multi-Ingred Medicated Throat [place] 1 spray 11/24/20 09:11 11/24/20 21:24 Throat [place], Medicated 20 Ml Bottle MUCOUS MEM 1 spray Q2H PRN Administration Sore Throat Ondansetron HCl 4 mg 11/23/20 19:18 11/27/20 03:29 Ondansetron Hcl 4 Mg/2 Ml Vial IVPUSH 4 mg Q4H PRN Administration Nausea Potassium Chloride 40 meq 11/28/20 13:59 Potassium Chloride Packet 20 Meq Packet PO 11/28/20 14:00 ONCE ONE Sodium Chloride 3 ml 11/24/20 00:00 11/28/20 08:52 0.9 % Sodium Chloride Flush 3 Ml Syringe IVFLUSH Not Given QSHIFT [facility] Time Spent With Patient Time: Total time spent is greater than 50% in coordination of care (as documented) at patient's floor/unit and/or counseling patient: Time with patient: less than 15 minutes Procedures Date of Service Date of Service: 11/28/20
[2020-11-28 09:33] VITALS: BP 142/68; PULSE 72; O2SAT 96
[2020-11-28] MEDS: Potassium Chloride Packet 20 MEQ PACKET 40 MEQ PO ×2 (10:11→13:41)
--- NOTE | 2020-11-28 10:48 | P.CDIC_ITS ---
CDI Concurrent Query Service Date: 11/28/20 Documentation Clarification: Please clarify if you are treating a proba ble/suspected/likely or confirmed: LABS: Hypomagnesemia Please specify if known Provider Response: Other Other Diagnosis: I am treating hypomagnesemia PLEASE DO NOT DELETE/MODIFY EXISTING CONTENT Additional information is needed in order to code to the highest accuracy and appropriate Severity of Illness (SOI). Please clarify the information noted below in your progress notes and discharge summary. Risk Factors/Clinical Indicators/Treatments LAB FINDINGS: magnesium 1.3 L IV magnesium sulfate SBO S/P Colectomy x 2 CDS: Nelsy King CCS, CDIS Contact Number: [phone] Please Review the information above and exercise your independent professional judgment in responding to the query. If you concur, pleas document in the PROGRESS NOTES and DISCHARGE SUMMARY. If you do not agree with the query, please document in the query above. THIS QUERY IS PART OF THE PERMANENT MEDICAL RECORD
[2020-11-28 10:53] VITALS: BP 145/62; PULSE 78; RESP 20; TEMP 36; O2SAT 98
--- NOTE | 2020-11-28 13:09 | P.DS_ITS ---
DS: Providers Provider Date of Service: 11/28/20 Date of admission: 11/23/20 19:18 Primary care physician: Meghan Portillo MD Admitting clinician: Milena Moore Attending physician on admission: Milena Moore Attending physician on discharge: Milena Moore Discharging clinician: Milena Moore DS: Diagnosis Discharge Diagnosis (1) Small bowel obstruction: Status: Acute DS: Medications Discharge Medications Home Medications: Home Medications Medication Instructions Recorded Confirmed albuterol sulfate 2.5 mg INHALATION Q4H PRN 11/23/20 11/23/20 albuterol sulfate [Ventolin HFA] 2 puff INHALATION Q6H PRN 11/23/20 11/23/20 amlodipine 5 mg PO DAILY 11/23/20 11/23/20 calcium carbonate-vitamin D3 1 cap PO DAILY 11/23/20 11/23/20 celecoxib [Celebrex] 200 mg PO BID 11/23/20 11/23/20 fexofenadine 180 mg PO DAILY 11/23/20 11/23/20 fluticasone propionate 1 spray INTRANASAL DAILY 11/23/20 11/23/20 gabapentin 400 mg PO TID 11/23/20 11/23/20 lisinopril 10 mg PO DAILY 11/23/20 11/23/20 mirtazapine 7.5 mg PO BEDTIME 11/23/20 11/23/20 multivitamin 1 tab PO DAILY 11/23/20 11/23/20 olopatadine 1 drp OPHTHALMIC (EYE) DAILY 11/23/20 11/23/20 omeprazole 20 mg PO BID 11/23/20 11/23/20 DS: Summary Hospital Course Hospital Course: Patient was admitted with signs and symptoms of small-bowel obstruction such is nausea vomiting cessation of passing flatus and bowel movements for a couple of days prior to being seen in the emergency department. Patient was admitted to the surgical service and NG tube was placed. Patient was left NPO with IV fluids and an NG tube for 3 days. Patient started to have signs of resolution of bowel obstruction with passing gas and having bowel movements. NG tube was removed on the morning of 11/27/2020. Patient was started on clear liquid diet which she tolerated well without pain. Patient was up and ambulating with physical therapy. On November 28 the patient was noted to be doing well and her diet was advanced to a regular diet which she tolerated and the patient was discharged home. Time Spent with Patient Time attestation: Total time spent providing and/or coordinating discharge services: Discharge coordination time: Less than 30 minutes Quality: Stroke Does the patient have a stroke diagnosis?: No Physical Exam Vital Signs: Vital Signs: Last Vital Signs Temp 96.8 F 11/28/20 10:53 Pulse 78 11/28/20 10:53 Resp 20 11/28/20 10:53 BP 145/62 H 11/28/20 10:53 Pulse Ox 98 11/28/20 10:53 Body Mass Index 45.5 DS: Data Data Completed and Pending Labs on day of discharge: Laboratory Results - last 24 hr 11/28/20 11/28/20 04:11 04:11 Potassium 3.2 L Magnesium 2.0 Discharge Plan Discharge Patient Disposition: Home, Self-Care Discharge Diagnosis: Small-bowel obstruction Referrals: Meghan Portillo MD [Primary Care Provider] - 1 Week Discharge Medications: Continued gabapentin 400 mg Capsule 400 mg PO TID RF: 0 multivitamin Tablet 1 tab PO DAILY RF: 0 celecoxib [Celebrex] 200 mg Capsule 200 mg PO BID RF: 0 amlodipine 5 mg Tablet 5 mg PO DAILY RF: 0 lisinopril 10 mg Tablet 10 mg PO DAILY RF: 0 omeprazole 20 mg Capsule,Delayed Release(Dr/Ec) 20 mg PO BID RF: 0 mirtazapine 15 mg Tablet 7.5 mg PO BEDTIME RF: 0 calcium carbonate-vitamin D3 600 mg(1,500mg) -400 unit Capsule 1 cap PO DAILY RF: 0 fexofenadine 180 mg Tablet 180 mg PO DAILY RF: 0 olopatadine 0.1 % Drops 1 drp OPHTHALMIC (EYE) DAILY RF: 0 albuterol sulfate 2.5 mg /3 mL (0.083 %) Solution For Nebulization 2.5 mg INHALATION Q4H PRN (Reason: Respiratory Distress) RF: 0 fluticasone propionate 50 mcg/actuation [place],Suspension 1 spray INTRANASAL DAILY RF: 0 albuterol sulfate [Ventolin HFA] 90 mcg/actuation Hfa Aerosol Inhaler 2 puff INHALATION Q6H PRN (Reason: Respiratory Distress) RF: 0 Discharge Orders: Discharge Order (Routine); Ordered 11/28/20 Ordered By: Milena Moore Stand Alone Forms: Patient Portal Discharge page Activity Restrictions/Additional Instructions: Patient may resume prehospitalization level of activity and diet. Patient should follow up with her primary care doctor within 2 weeks of discharge. Patient should call the office at [phone] if she develops worsening abdominal pain nausea or vomiting that is persistent or cessation of bowel function. Care Plan Goals: Return to baseline level of care Health Concerns: Morbid obesity and poor mobility Plan of Treatment: Patient should follow-up with her primary care doctor to help her with weight loss. Assessment: Patient now doing well status post resolution of small-bowel obstruction
--- NOTE | 2020-11-28 13:17 | MHC.CM.PN ---
Addendum entered by Shabnam Chang 11/28/20 13:27: IMM 11/27 IN CHART Original Note: PATIENT IS DISCHARGED HOME WITH RESUMPTION OF HER [employer]ORAT[employer] DIRECTOR SERVICES. RN AWARE OF PLAN.
== END 2020-11-28 14:17 | disposition home or self-care (01) | DRG 390 ==
LOC: HO.ED 18:56 → HO.EDOVER 20:32 → HO.S3 20:33
PROVIDERS: Admitting Provider Surgery; Emergency Provider Emergency Medicine; PCP Internal Medicine; Visit Provider Surgery
DX: K56.609 Unspecified intestinal obstruction, unspecified as to partial versus complete obstruction (principal); E83.42 Hypomagnesemia; M79.7 Fibromyalgia; Z20.822 Contact with and (suspected) exposure to COVID-19; Z96.653 Presence of artificial knee joint, bilateral; Z87.891 Personal history of nicotine dependence; Z79.1 Long term (current) use of non-steroidal anti-inflammatories (NSAID); Z79.51 Long term (current) use of inhaled steroids; Z79.899 Other long term (current) drug therapy
CPT/HCPCS: 36415; 74018; 80048; 80076; 83690; 83735; 84132; 85025; 85027; 87635; 96374; 97110; 97116; 97162; 99285; J2270; J2405; J3475

== ENCOUNTER → 2022-02-12 14:17 | Outpatient (BNVA) | payer MEDICARE, SELFPAY | PROVIDERS: PCP Internal Medicine; Referring Provider Internal Medicine; Visit Provider Nurse Practitioner Family | DX: E55.9 Vitamin D deficiency, unspecified (principal); R19.7 Diarrhea, unspecified; K21.9 Gastro-esophageal reflux disease without esophagitis; R10.11 Right upper quadrant pain; K59.00 Constipation, unspecified; K58.2 Mixed irritable bowel syndrome; Z79.899 Other long term (current) drug therapy | CPT/HCPCS: 99202 ==

== ENCOUNTER 2022-02-20 13:42 | Outpatient (REF) | payer MEDICARE, SELFPAY ==
[2022-02-20 17:47] LABS: Blood Urea Nitrogen 12 mg/dL (9-16); Estimated Glomerular Filt Rate > 60; Lipase 24 U/L (8-78)
[2022-02-20 18:07] LABS: TSH reflex Free T4 1.89 uIU/mL (0.32-4.0)
[2022-02-20 18:36] LABS: Folate 6.9 ng/mL (> or = 4.0); Vitamin B12 < 146 pg/mL (200-900)
[2022-02-22 10:12] LABS: Transglutaminase Ab IgG 1.9 U/mL; Transglutaminase IgA <1.0 U/mL
[2022-02-24 15:57] LABS: Vitamin D 25-OH, D2 <4 ng/mL; Vitamin D 25-OH, D3 31 ng/mL; Vitamin D 25-OH, Total 31 ng/mL (30-100)
== END 2022-02-20 13:43 | disposition home or self-care (01) ==
LOC: HO.HMGCLDS 13:42
PROVIDERS: Nurse Practitioner Family; Visit Provider Internal Medicine
DX: R10.11 Right upper quadrant pain (principal); R19.7 Diarrhea, unspecified; E55.9 Vitamin D deficiency, unspecified
CPT/HCPCS: 36415; 82306; 82565; 82607; 82746; 83690; 84443; 84520; 86364

== ENCOUNTER 2022-02-22 15:26 | Outpatient (REF) | payer MEDICARE, SELFPAY ==
[2022-03-01 19:07] LABS: Pancreatic Elastase-1 353 mcg/g
== END 2022-02-22 15:27 | disposition home or self-care (01) ==
LOC: HO.HMGCLNP 15:26
PROVIDERS: Visit Provider Nurse Practitioner Family
DX: R10.9 Unspecified abdominal pain (principal); K21.9 Gastro-esophageal reflux disease without esophagitis; Z11.0 Encounter for screening for intestinal infectious diseases
CPT/HCPCS: 82656; 87338

== ENCOUNTER 2022-06-10 13:17 | Outpatient (REF) | payer MEDICARE, SELFPAY ==
--- NOTE | ~2022-06-10 | CT_ITS ---
EXAMINATION: CT ABDOMEN AND PELVIS WITH CONTRAST CLINICAL INFORMATION: Abdominal pain. COMPARISON: None TECHNIQUE: Multidetector volumetric images were obtained from the superior aspect of the liver through the pubic symphysis following administration 85 mL of Omnipaque 350 intravenous contrast. Sagittal and coronal reformatted images were obtained on the technologist's workstation. Oral contrast: Yes This CT examination was performed using dose optimization techniques as appropriate, variously including the following: *Automated exposure control *Adjustment of mA and/or kV according to patient size (this includes techniques or standardized protocols for targeted exams where dose is matched to indication/reason for exam; i.e. extremities or head) *Use of iterative reconstruction technique DLP: 814 mGy-cm FINDINGS: LUNG BASES: The visualized lung bases are unremarkable. LIVER, GALLBLADDER, AND BILIARY TREE: Fatty liver. Gallstones. No focal liver lesion or biliary duct dilatation. PANCREAS: Unremarkable SPLEEN: Unremarkable ADRENAL GLANDS: Unremarkable KIDNEYS AND URETERS: Question calcified left renal artery aneurysm measuring 9 mm. Kidneys are otherwise normal. BLADDER: Low pubic hernia containing bladder. Bladder is not optimally distended and not well evaluated. GASTROINTESTINAL TRACT: There is wall thickening along the greater curvature of the stomach. There may be a small esophageal hernia. Postsurgical changes following colectomy. Post surgical changes to the small bowel. Small and large bowel is unremarkable. The appendix is not seen ABDOMINAL WALL: Suprapubic hernia to the left of midline containing bladder. LYMPH NODES: Normal VASCULAR: A 9 mm calcification left renal hilum questionable for calcified aneurysm. PELVIC VISCERA: The uterus may been removed. No pelvic mass. OSSEOUS STRUCTURES: Scoliosis and degenerative changes of the spine. CT/CT abdomen pelvis w IV con IMPRESSION: Fatty liver. Gallstones. Wall thickening along the greater curvature of the stomach. Follow-up endoscopy recommended. Suprapubic hernia to the left of midline containing bladder. Question 9 mm calcified left renal artery aneurysm. Fleischner guidelines were followed. Findings will be communicated by the [facility] work flow certified medical dosimetrist.
[2022-06-11 07:25] LABS: Creatinine POC 0.8 mg/dL (0.5-1.4); GFR POC > 60
== END 2022-06-10 13:18 | disposition home or self-care (01) ==
LOC: HO.CT 13:17
PROVIDERS: PCP Internal Medicine; Visit Provider Nurse Practitioner Family
DX: R10.9 Unspecified abdominal pain (principal)
CPT/HCPCS: 74177; 82565

== ENCOUNTER → 2022-06-12 13:11 | Outpatient (BNVA) | payer MEDICARE, SELFPAY | PROVIDERS: PCP Internal Medicine; Visit Provider Nurse Practitioner Family | DX: K21.9 Gastro-esophageal reflux disease without esophagitis (principal); K58.2 Mixed irritable bowel syndrome; E66.01 Morbid (severe) obesity due to excess calories; Z68.42 Body mass index [BMI] 45.0-49.9, adult | CPT/HCPCS: 99212 ==

== ENCOUNTER 2022-09-12 11:07 | Day surgery (SDC) | payer MEDICARE, SELFPAY ==
[2022-07-01 10:45] VITALS: BMI 45.5
--- NOTE | 2022-09-11 12:16 | P.CONAN_ITS ---
Documented by User: Consuelo Wesley NP 09/11/22 12:18 HPI - Anesthesia Eval Consult details Narrative: 82yo F for Upper Endoscopy Hx of colectomy 2009 ON LICENSE OF [facility] Active Problems Active Problems: All Active Problems (Updated 12/06/20 @ 00:01 by Mikaela Sow) History of colon cancer (Acute) Past Medical History Medical History Arthritis Asthma Fibromyalgia GERD (gastroesophageal reflux disease) History of bronchitis HTN (hypertension) Hx of urinary frequency Morbid obesity due to excess calories Family History Family History Mother Congestive heart failure Father Colon cancer Daughter No problems noted. Daughter No problems noted. Surgical History Surgical History History of bilateral knee replacement History of bunionectomy of right great toe History of section, classical History of partial colectomy History of total colectomy Hx of colonoscopy Social History Social History Household Members: None Housing: Assisted Living Facility Do you presently have visiting nurse or other home services: Yes Alcohol intake: never Patient Tobacco Use Status: Former Tobacco user Quit Date: 20 yrs ago Use of substances other than those prescribed or required for medical reasons: No Are you DNR?: No Advance Directives: No Advance Directives Information Provided: Yes Patient : No service: No Current occupational status: unemployed and disabled Meds Allergies Allergy/AdvReac Type Severity Reaction Status Date / Time No Known Allergies Allergy Verified 09/12/22 11:19 Home Medications Medication Instructions Recorded Confirmed Last Taken Type albuterol sulfate 2.5 mg/3 mL 2.5 mg inhalation Q4H PRN 11/23/20 09/12/22 Unknown History (0.083 %) solution for nebulization Respiratory Distress albuterol sulfate 90 mcg/actuation 2 puff inhalation Q6H PRN 11/23/20 09/12/22 Unknown History aerosol inhaler (Ventolin HFA) Respiratory Distress amlodipine 5 mg tablet 5 mg PO DAILY 11/23/20 09/12/22 11/23/20 History calcium carbonate 600 mg-vitamin 1 cap PO DAILY 11/23/20 09/12/22 11/23/20 History D3 10 mcg (400 unit) capsule celecoxib 200 mg capsule (Celebrex) 200 mg PO BID 11/23/20 09/12/22 11/23/20 History fexofenadine 180 mg tablet 180 mg PO DAILY 11/23/20 09/12/22 11/23/20 History fluticasone propionate 50 1 spray intranasal DAILY 11/23/20 09/12/22 11/23/20 History mcg/actuation nasal spray,suspension gabapentin 400 mg capsule 400 mg PO TID 11/23/20 09/12/22 11/23/20 History lisinopril 10 mg tablet 10 mg PO DAILY 11/23/20 09/12/22 11/23/20 History mirtazapine 15 mg tablet 7.5 mg PO BEDTIME 11/23/20 09/12/22 11/23/20 History multivitamin 1 tab PO DAILY 11/23/20 09/12/22 11/23/20 History olopatadine 0.1 % eye drops 1 drp ophthalmic (eye) DAILY 11/23/20 09/12/22 Unknown History Exam Exam Date and Time: September 11, 2022 1216 Height,Weight and Vital Signs: Height 5 ft 3 in Weight 116.573 kg Assessment and Plan Assessment Anesthesia Assessment: Chart Reviewed Documented by User: Trisha Mcclellan MD 09/12/22 12:52 ON LICENSE OF [facility] Past Medical History Medical History Arthritis Asthma Fibromyalgia GERD (gastroesophageal reflux disease) History of bronchitis HTN (hypertension) Hx of urinary frequency Morbid obesity due to excess calories Patient : No Family History Family History Mother Congestive heart failure Father Colon cancer Daughter No problems noted. Daughter No problems noted. Family history of problems with anesthesia: No Surgical History Surgical History History of bilateral knee replacement History of bunionectomy of right great toe History of section, classical History of partial colectomy History of total colectomy Hx of colonoscopy Social History Social History Household Members: None Housing: Assisted Living Facility Do you presently have visiting nurse or other home services: Yes Alcohol intake: never Patient Tobacco Use Status: Former Tobacco user Quit Date: 20 yrs ago Use of substances other than those prescribed or required for medical reasons: No Are you DNR?: No Advance Directives: No Advance Directives Information Provided: Yes Patient : No service: No Current occupational status: unemployed and disabled Meds Allergies Allergy/AdvReac Type Severity Reaction Status Date / Time No Known Allergies Allergy Verified 09/12/22 11:19 Home Medications Medication Instructions Recorded Confirmed Last Taken Type albuterol sulfate 2.5 mg/3 mL 2.5 mg inhalation Q4H PRN 11/23/20 09/12/22 Unknown History (0.083 %) solution for nebulization Respiratory Distress albuterol sulfate 90 mcg/actuation 2 puff inhalation Q6H PRN 11/23/20 09/12/22 Unknown History aerosol inhaler (Ventolin HFA) Respiratory Distress amlodipine 5 mg tablet 5 mg PO DAILY 11/23/20 09/12/22 11/23/20 History calcium carbonate 600 mg-vitamin 1 cap PO DAILY 11/23/20 09/12/22 11/23/20 Histo ry D3 10 mcg (400 unit) capsule celecoxib 200 mg capsule (Celebrex) 200 mg PO BID 11/23/20 09/12/22 11/23/20 History fexofenadine 180 mg tablet 180 mg PO DAILY 11/23/20 09/12/22 11/23/20 History fluticasone propionate 50 1 spray intranasal DAILY 11/23/20 09/12/22 11/23/20 History mcg/actuation nasal spray,suspension gabapentin 400 mg capsule 400 mg PO TID 11/23/20 09/12/22 11/23/20 History lisinopril 10 mg tablet 10 mg PO DAILY 11/23/20 09/12/22 11/23/20 History mirtazapine 15 mg tablet 7.5 mg PO BEDTIME 11/23/20 09/12/22 11/23/20 History multivitamin 1 tab PO DAILY 11/23/20 09/12/22 11/23/20 History olopatadine 0.1 % eye drops 1 drp ophthalmic (eye) DAILY 11/23/20 09/12/22 Unknown History Exam Airway Mallampati Class: III TM Dist: >3cm Neck ROM: Full Heart: RRR Lungs: CTA Assessment and Plan Final Anesthetic Review Family History of Problems with Anesthesia: No NPO: Yes ASA Class: III Final Preanesthetic Review: No Changes in Pt Med Stat, Meds/Allgs Chart Reviewed, Consent Obtained/Reviewed and Anes Risks/Benef Reviewed Patient Risk: Intermediate Procedure Risk: Low Anesthetic Plan Anesthetic Plan: MAC: Disposition: Standard PACU
--- NOTE | 2022-09-12 11:24 | MHC.SHP ---
Pre-Procedural Eval Section A Date of Service: 09/12/22 Section B Chief Complaint: Abnormal imaging Details of Present Illness: Pt reports having frequent heartburn and bloating. Has chronic nonbloody diarrhea since colectomy which is unchanged. Medical History Arthritis Asthma Fibromyalgia History of bronchitis Morbid obesity due to excess calories Surgical History History of bilateral knee replacement History of bunionectomy of right great toe History of section, classical History of partial colectomy History of total colectomy Relevant Family History (Specify if Yes): No Relevant Social History: None Present Medications: see Short Stay Collaborative assessment Allergies: Allergies Allergy/AdvReac Type Severity Reaction Status Date / Time No Known Allergies Allergy Verified 09/12/22 11:19 Review of Systems Review of Systems Comment: Ten point ROS negative except as above Exam Exam Comment: Gen appear: No acute distress HEENT: no icterus Chest: No overt resp distress Abd: soft, nontender, nondistended Psych: Stable affect, answering questions appropriately Neuro: A/Ox3 noted to move all extremities spontaneously Ext: no peripheral edema Plan Diagnosis/Plan: Unchanged I have reviewed the history and physical and performed a pertinent physical examination on my patient. No changes have occurred unless specified. Time Spent With Patient Time: Total time managing care of this patient today ____ minutes.
--- NOTE | 2022-09-12 11:40 | P.OP_ITS ---
Operative Note Operative Note Date of Service: 09/12/22 Narrative: Procedure: Esophagogastroduodenoscopy Endoscopist: Kayli Ruiz MD Indication: Abnormal imaging Anesthesia Provider: Dr Trisha Hills Anesthesia Type: MAC Instrument: Olympus [id number]-H190 ?? EGD Procedure:?? The procedure, indications, preparation and potential complications were reviewed with the patient, who indicated understanding and gave written informed consent to proceed. A physical exam was performed. The endoscope was introduced through the mouth, and advanced to the second part of duodenum. The mucosa was carefully examined on slow withdrawal of the endoscope. The patient tolerated the procedure well. There were no immediate complications.? ? EGD Findings:? * Esophagus:? Normal mucosa noted in the entire esophagus. The Z line was at 37 cm. * Stomach:? Abnormal mucosa with overlying villous changes caroline in the body were noted under NBI. Prominent/thickened gastric folds in the fundus and body of the stomach. Saadia protocol mapping biopsies were obtained to eval for metaplasia/dysplasia. * Duodenum:? Normal mucosa was noted in the whole of the examined duodenum. Biopsies were taken from duodenal bulb and second portion of the duodenum to rule out celiac sprue. ? EGD Impressions:? * Normal esophagus * Abnormal stomach mucosa (biopsy) * Normal duodenum (biopsy) ?? Recommendations:?? * Follow biopsy results. * If H pylori +, patient will be prescribed eradication therapy followed by test of cure. * Avoid NSAIDs. Above has been reviewed with the patient. Relevant educational hand outs were provided at discharge.
[2022-09-12 11:49] VITALS: BP 167/54; PULSE 87; RESP 18; TEMP 36.6; O2SAT 96
--- NOTE | 2022-09-12 11:53 | ECG_ITS ---
Test Reason : ?RBBB Blood Pressure : / mmHG Vent. Rate : 085 BPM Atrial Rate : 085 BPM P-R Int : 176 ms QRS Dur : 128 ms QT Int : 410 ms P-R-T Axes : 061 -38 027 degrees QTc Int : 487 ms Sinus rhythm with Premature atrial complexes Left axis deviation Right bundle branch block Abnormal ECG No previous ECGs available Referred By: Trisha Mcclellan Electronically Signed By:HAVEN MORA MD
[2022-09-12] MEDS: Lactated Ringers 1,000 ML 100 ML IVCONT (12:11)
[2022-09-12 13:04] VITALS: BP 160/82; PULSE 84; RESP 16; TEMP 36.4; O2SAT 94
[2022-09-12 13:19] VITALS: BP 166/76; PULSE 80; RESP 18; TEMP 36.8; O2SAT 95
== END 2022-09-12 13:49 | disposition home or self-care (01) ==
PROVIDERS: PCP Internal Medicine; Visit Provider Internal Medicine
PROC: 0DJ08ZZ Inspection of Upper Intestinal Tract, Via Natural or Artificial Opening Endoscopic (ICD-10-PCS; CPT 43235; principal; 2022-09-12 12:20)
DX: K21.9 Gastro-esophageal reflux disease without esophagitis (principal); K31.89 Other diseases of stomach and duodenum; R19.7 Diarrhea, unspecified; Z85.038 Personal history of other malignant neoplasm of large intestine; Z90.49 Acquired absence of other specified parts of digestive tract; J45.909 Unspecified asthma, uncomplicated; M79.7 Fibromyalgia; I10 Essential (primary) hypertension; E66.01 Morbid (severe) obesity due to excess calories; Z68.42 Body mass index [BMI] 45.0-49.9, adult; Z79.51 Long term (current) use of inhaled steroids; Z79.899 Other long term (current) drug therapy; Z87.891 Personal history of nicotine dependence
CPT/HCPCS: 43239; 88305; 88342; 93005

== ENCOUNTER → 2022-09-27 13:33 | Outpatient (BNVA) | payer MEDICARE, SELFPAY | PROVIDERS: PCP Internal Medicine; Referring Provider Internal Medicine; Visit Provider Nurse Practitioner Family | DX: K21.00 Gastro-esophageal reflux disease with esophagitis, without bleeding (principal); K58.0 Irritable bowel syndrome with diarrhea; J34.89 Other specified disorders of nose and nasal sinuses | CPT/HCPCS: 99212 ==

== ENCOUNTER 2023-12-05 14:43 | Outpatient (REF) | payer MEDICARE, SELFPAY ==
[2023-12-05 18:09] LABS: MANUAL DIFF FLAG NO
[2023-12-05 18:18] LABS: Basophils Absolute Auto 0.1 X10*3/uL (0.0-0.2); Basophils Percent Auto 0.8 % (0-2); Eosinophils Absolute Auto 0.2 X10*3/uL (0.0-0.4); Eosinophils Percent Auto 2.5 % (0-4); Hematocrit 41.7 % (37.0-47.0); Hemoglobin 13.1 g/dl (12.0-16.0); Imm Gran Abs Auto 0.03 X10*3/uL (0.00-0.03); Imm Gran Pct Auto 0.3 % (0.0-0.4); Lymphocytes Absolute Auto 2.8 X10*3/uL (1.2-4.9); Lymphocytes Percent Auto 30.5 % (20-40); Mean Corpuscular HGB Conc 31.4 g/dl (31.0-35.0); Mean Corpuscular Hemoglobin 28.1 pg (27.0-33.0); Mean Corpuscular Volume 89.5 fL (80.0-98.0); Mean Platelet Volume 9.9 fL (9.4-12.3); Monocytes Absolute Auto 0.5 X10*3/uL (0.1-1.2); Neutrophils Absolute Auto 5.5 x10*3/uL (2.0-8.3); Neutrophils Percent Auto 60.9 % (45-73); Platelet Count 286 X10*3/uL (160-400); Red Blood Count 4.66 X10*6/uL (4.20-5.50); Red Cell Distribution Width 14.6 % (11.0-16.0); White Blood Count 9.1 X10*3/uL (4.8-10.8)
[2023-12-05 18:36] LABS: Alanine Aminotransferase 16 U/L (0-31); Albumin Level 3.7 g/dL (3.5-5.0); Alkaline Phosphatase 70 U/L (39-117); Anion Gap 15 (12-20); Aspartate Amino Transferase 19 U/L (5-31); Bilirubin Total 0.4 mg/dL (0.0-1.0); Blood Urea Nitrogen 15 mg/dL (9-16); Calcium 8.9 mg/dL (8.4-10.2); Carbon Dioxide 30 mmol/L (22-29); Chloride 101 mmol/L (96-108); Cholesterol 216 mg/dL (<200); Estimated Glomerular Filt Rate > 60; Glucose Random 124 mg/dL (60-115); HDL Cholesterol 47 mg/dL (>40); LDL Cholesterol Calculated 137 mg/dL (<100); Potassium 3.9 mmol/L (3.3-5.1); Sodium 142 mmol/L (135-145); Total Protein 7.1 g/dL (6.5-8.0); Triglycerides 161 mg/dL (<150)
== END 2023-12-05 14:44 | disposition home or self-care (01) ==
LOC: HO.CHCLDS 14:43
PROVIDERS: Visit Provider Internal Medicine
DX: I10 Essential (primary) hypertension (principal); E78.00 Pure hypercholesterolemia, unspecified
CPT/HCPCS: 36415; 80053; 80061; 84443; 85025

== ENCOUNTER 2024-07-02 14:25 | Outpatient (REF) | payer MEDICARE, SELFPAY ==
[2024-07-02 17:57] LABS: Anion Gap 14 (12-20); Blood Urea Nitrogen 10 mg/dL (9-16); Calcium 8.5 mg/dL (8.4-10.2); Carbon Dioxide 29 mmol/L (22-29); Chloride 101 mmol/L (96-108); Estimated Glomerular Filt Rate > 60; Glucose Random 123 mg/dL (60-115); Potassium 3.3 mmol/L (3.3-5.1); Sodium 141 mmol/L (135-145)
== END 2024-07-02 14:26 | disposition home or self-care (01) ==
LOC: HO.CHCLDS 14:25
PROVIDERS: Visit Provider Internal Medicine
DX: M10.9 Gout, unspecified (principal)
CPT/HCPCS: 36415; 80048; 84550

== ENCOUNTER 2024-12-08 12:43 | Outpatient (REF) | payer MEDICARE, SELFPAY ==
[2024-12-08 14:26] LABS: MANUAL DIFF FLAG NO
[2024-12-08 14:36] LABS: Basophils Absolute Auto 0.1 X10*3/uL (0.0-0.2); Basophils Percent Auto 0.6 % (0-2); Eosinophils Absolute Auto 0.3 X10*3/uL (0.0-0.4); Eosinophils Percent Auto 3.3 % (0-4); Hematocrit 40.6 % (37.0-47.0); Hemoglobin 12.6 g/dl (12.0-16.0); Imm Gran Abs Auto 0.05 X10*3/uL (0.00-0.03); Imm Gran Pct Auto 0.5 % (0.0-0.4); Lymphocytes Absolute Auto 3.1 X10*3/uL (1.2-4.9); Lymphocytes Percent Auto 29.6 % (20-40); Mean Corpuscular Hemoglobin 28.1 pg (27.0-33.0); Mean Corpuscular Volume 90.6 fL (80.0-98.0); Monocytes Absolute Auto 0.6 X10*3/uL (0.1-1.2); Monocytes Percent Auto 5.6 % (2-11); Neutrophils Absolute Auto 6.3 x10*3/uL (2.0-8.3); Neutrophils Percent Auto 60.4 % (45-73); Platelet Count 304 X10*3/uL (160-400); Red Blood Count 4.48 X10*6/uL (4.20-5.50); Red Cell Distribution Width 14.4 % (11.0-16.0); White Blood Count 10.4 X10*3/uL (4.8-10.8)
[2024-12-08 14:52] LABS: Alanine Aminotransferase 19 U/L (0-31); Albumin Level 3.9 g/dL (3.5-5.0); Alkaline Phosphatase 79 U/L (39-117); Anion Gap 15 (12-20); Aspartate Amino Transferase 31 U/L (5-31); Bilirubin Total 0.2 mg/dL (0.0-1.0); Blood Urea Nitrogen 17 mg/dL (9-16); Calcium 8.5 mg/dL (8.4-10.2); Carbon Dioxide 27 mmol/L (22-29); Chloride 102 mmol/L (96-108); Estimated Glomerular Filt Rate 53; Glucose Random 152 mg/dL (60-115); Potassium 3.8 mmol/L (3.3-5.1); Sodium 140 mmol/L (135-145); Total Protein 6.9 g/dL (6.5-8.0)
[2024-12-08 14:57] LABS: TSH reflex Free T4 3.42 uIU/mL (0.32-4.0)
== END 2024-12-08 12:44 | disposition home or self-care (01) ==
LOC: HO.CHCLDS 12:43
PROVIDERS: Visit Provider Internal Medicine
DX: R06.02 Shortness of breath (principal)
CPT/HCPCS: 36415; 80053; 84443; 85025

== ENCOUNTER 2025-03-07 13:08 | Outpatient (REF) | payer OTHER, SELFPAY ==
[2025-03-07 14:15] LABS: MANUAL DIFF FLAG NO
[2025-03-07 14:19] LABS: Hematocrit 38.8 % (37.0-47.0); Hemoglobin 12.1 g/dl (12.0-16.0); Imm Gran Abs Auto 0.02 X10*3/uL (0.00-0.03); Imm Gran Pct Auto 0.2 % (0.0-0.4); Lymphocytes Absolute Auto 2.3 X10*3/uL (1.2-4.9); Mean Corpuscular HGB Conc 31.2 g/dl (31.0-35.0); Mean Corpuscular Hemoglobin 27.6 pg (27.0-33.0); Mean Corpuscular Volume 88.4 fL (80.0-98.0); NRBC Abs Auto 0.000 X10*3/uL (0.0-0.012); NRBC Pct Auto 0.0 /100WBC (0.0-0.2); Platelet Count 317 X10*3/uL (160-400); Red Blood Count 4.39 X10*6/uL (4.20-5.50); White Blood Count 8.7 X10*3/uL (4.8-10.8)
--- OUTSIDE RECORDS SUMMARY | 2025-03-07 14:28 | XMS_ITS | Encounter Summary ---
Author Organization [employer] Address [address] [facility] [address] [place] [address] Care Team Providers Care Production Manufacturing Worker Name Role Phone Meghan Portillo MD Primary Care Provider [phone] Encounter Details Date Type Department Care Team (Late Contact Info) Description 04/19/2024 Orders Only [facility] MED & PEDS [address], [place] [phone] Meghan Portillo MD [address] [place] [address] Gastroesophageal reflux disease without esophagitis (Primary Dx) Social History Tobacco Use Types Packs/Day Years Used Date Smoking Tobacco: Never Smokeless Tobacco: Never Alcohol Use Standard Drinks/Week Comments Defer 0 (1 standard drink = 0.6 oz pur e alcohol) Depression Answer Date Recorded Patient Health Questionnaire-9 Score 7 12/05/2023 Patient Health Questionnaire-9 Score 7 12/05/2023 Last PHQ-9: Questionnaire Data Not on file 0 12/05/2023 Depression Answer Date Recorded Patient Health Questionnaire-2 Score 0 12/05/2023 Comments Unknown Sex and Gender Information Value Date Recorded Sex Assigned at Female 05/13/2022 10:25 AM EDT Legal Sex Female 10:25 AM EDT Gender Identity Female 12/09/2023 11:26 AM EDT Sexual Orientation Straight 12/09/2023 11 :26 AM EDT documented as of this encounter Plan of Treatment Upcoming Encounters Date Type Department Care Team (Late Contact Info) Description 03/08/2025 2:00 PM EDT Office Visit [facility] PEDS [address] [place] [address] Meghan Portillo MD [address] [place] [address] 04/12/2025 3:00 PM EDT Office Visit [facility] ADULT DENTAL [address] [place] [address] Cayla Kali [address] [place] [address] documented as of this encounter Visit Diagnoses Diagnosis Gastroesophageal reflux disease without esophagitis- Primary Esophageal reflux documented in this encounter Additional Health Concerns Assessment Noted Time PHQ-9 Depression Total Score: 7 12/05/19 24 2:33 PM EDT documented as of this encounter Care Teams Production Manufacturing Worker Relationship Specialty Start Date End Date Meghan Portillo MD [address] [place] [address] PCP - General Internal Medicine 06/14/13 [employer] 06/30/24 02/23/25 [place] 02/18/25 documented as of this encounter
--- OUTSIDE RECORDS SUMMARY | 2025-03-07 14:28 | XMS_ITS | Encounter Summary ---
Author Organization [facility] Address [address] [place] [address] Care Team Providers Care Motor Winder Name Role Phone Meghan Portillo MD Primary Care Provider [phone] Encounter Details Date Type Department Care Team (Late st Contact Info) Description 01/26/2025 Lab Requisition [facility] [address] [facility] [place] [phone] Katelynn Bee MD [address] [facility] [address] [place], [place] [phone] Anemia, unspecified; Essential (primary) hypertension; Other disorders of electrolyte and fluid balance, not elsewhere classified Social History Tobacco Use Types Packs/Day Years Used Date Smoking Tobacco: Never Assessed Comments Unknown Sex and Gender Information Value Date Recorded Sex Assigned at Not on file Legal Sex Female 5:26 AM EST Gender Identity Not on file Sexual Orientation Not on file documented as of this encounter Plan of Treatment Not on file documented as of this encounter Procedures Procedure Name Priority Date/Time Associated Diagnosis Comments COMPLETE BLOOD COUNT Routine 01/26/2025 5:07 AM EDT Anemia, unspecified Essential (primary) hypertension Other disorders of electrolyte and fluid balance, not elsewhere classified COMPREHENSIVE METABOLIC PANEL Routine 01/26/2025 5:07 AM EDT Anemia, unspecified Essential (primary) hypertension Other disorders of electrolyte and fluid balance, not elsewhere classified documented in this encounter Results * Comprehensive metabolic panel (01/26/2025 5:07 AM EDT) Sodium 138 133 - 145 mmol/L LAB CHEMISTRY METHOD 01/26/2025 2:42 PM [facility] Potassium 3.7 3.5 - 5.5 mmol/L LAB CHEMISTRY METHOD 01/26/2025 2:42 PM [facility] Chloride 98 96 - 110 mmol/L LAB CHEMISTRY METHOD 01/26/2025 2:42 PM [facility] CO2 29 21 - 32 mmol/L LAB CHEMISTRY METHOD 01/26/2025 2:42 PM [facility] Anion Gap 11 3 - 11 LAB CHEMISTRY METHOD 01/26/2025 2:42 PM [facility] Glucose 82 70 - 100 mg/dL LAB CHEMISTRY METHOD 01/26/2025 2:42 PM [facility] BUN 12 5 - 25 mg/dL LAB CHEMISTRY METHOD 01/26/2025 2:42 PM [facility] Creatinine 0.91 0.50 - 1.10 mg/dL LAB CHEMISTRY METHOD 01/26/2025 2:42 PM [facility] eGFR 63 >=60 mL/min/1. 73m2 LAB CHEMISTRY METHOD 01/26/2025 2:42 PM [facility] Comment:Calculation based on the Chronic Kidney Disease Epidemiology Collaboration (CKD-EPI) equation refit without adjustment for race. BUN/Creatinine Ratio 13.2 LAB CHEMISTRY METHOD 01/26/2025 2:42 PM [facility] Calcium 8.5 8.5 - 10.5 mg/dL LAB CHEMISTRY METHOD 01/26/2025 2:42 PM [facility] AST (SGOT) 31 10 - 42 unit/L LAB CHEMISTRY METHOD 01/26/2025 2:42 PM [facility] ALT (SGPT) 29 10 - 60 unit/L LAB CHEMISTRY METHOD 01/26/2025 2:42 PM EDT [facility] Alkaline Phosphatase 60 42 - 121 unit/L LAB CHEMISTRY METHOD 01/26/2025 2:42 PM EDT [facility] Total Protein 6.3 6.0 - 8.0 g/dL LAB CHEMISTRY METHOD 01/26/2025 2:42 PM EDT [facility] Albumin 3.2 3.2 - 5.0 g/dL LAB CHEMISTRY METHOD 01/26/2025 2:42 PM EDT [facility] Total Bilirubin 0.5 0.0 - 1.4 mg/dL LAB CHEMISTRY METHOD 01/26/2025 2:42 PM EDT [facility] Blood Venous blood specimen / Unknown 01/26/2025 5:07 AM EDT 01/26/2025 12:21 PM EDT us Katelynn Bee MD LAB BLOOD ORDERABLES Fin al Result [facility] [address] [place] [address], * (ABNORMAL) Complete blood count (01/26/2025 5:07 AM EDT) WBC 8.6 4.8 - 10.8 K/mcL LAB HEMETOLOGY METHOD 01/26/2025 1:40 PM EDT [facility] RBC 4.20 3.80 - 4.80 M/mcL LAB HEMETOLOGY METHOD 01/26/2025 1:40 PM EDT [facility] Hemoglobin 11.9 11.5 - 16.0 g/dL LAB HEMETOLOGY METHOD 01/26/2025 1:40 PM EDT [facility] Hematocrit 40.0 35.0 - 47.0 % LAB HEMETOLOGY METHOD 01/26/2025 1:40 PM EDT [facility] MCV 95.7 79.0 - 98.0 FL LAB HEMETOLOGY METHOD 01/26/2025 1:40 PM EDT [facility] MCH 28.5 27.0 - 32.0 pcg LAB HEMETOLOGY METHOD 01/26/2025 1:40 PM EDT [facility] MCHC 29.8(L) 32.0 - 37.0 g/dL LAB HEMETOLOGY METHOD 01/26/2025 1:40 PM EDT [facility] RDW 15.0 11.0 - 15.0 % LAB HEMETOLOGY METHOD 01/26/2025 1:40 PM EDT [facility] Platelets 333 130 - 400 K/mcL LAB HEMETOLOGY METHOD 01/26/2025 1:40 PM EDT [facility] MPV 10.0 7.0 - 11.0 FL LAB HEMETOLOGY METHOD 01/26/2025 1:40 PM EDT [facility] NRBC 0.0 <1.0 % LAB HEMETOLOGY METHOD 01/26/2025 1:40 PM EDT [facility] NRBC Absolute 0.00 <0.10 K/mcL LAB HEMETOLOGY METHOD 01/26/2025 1:40 PM EDT [facility] Blood Venous blood specimen / Unknown 01/26/2025 5:07 AM EDT 01/26/2025 12:21 PM EDT us Katelynn Bee MD LAB BLOOD ORDERABLES Fin al Result [facility] [address] [place] [address], documented in this encounter Visit Diagnoses Diagnosis Anemia, unspecified Essential (primary) hypertension Unspecified essential hypertension Other disorders of electrolyte and fluid balance, not elsewhere classified documented in this encounter Additional Health Concerns Infection Onset Date Last Indicated Resolved Time C. difficile Rule-Out 02/05/2025 02/04/20252024 11:09 AM EDT documented as of this encounter Care Teams Motor Winder Relationship Specialty Start Date End Date Meghan Portillo MD [address] [place] [address] PCP - General 12/10/23 documented as of this encounter
--- OUTSIDE RECORDS SUMMARY | 2025-03-07 14:28 | XMS_ITS | Encounter Summary ---
Author Organization [employer] Address [address] [place] [address] Care Team Providers Care Casting Cleaner Name Role Phone Meghan Portillo MD Primary Care Provider [phone] Reason for Visit * Reason Onset Date Comments Durable Medical Equipment 11/30/2024 Encounter Details Date Type Department Care Team (Late st Contact Info) Description 11/30/[address] [facility] MEDICINE [address] [place] [address] Meghan Portillo MD [address] [place] [address] Durable Medical Equipment Social History Tobacco Use Types Packs/Day Years Used Date Smoking Tobacco: Never Smokeless Tobacco: Never Alcohol Use Standard Drinks/Week Comments Defer 0 (1 standard drink = 0.6 oz pur e alcohol) Depression Answer Date Recorded Patient Health Questionnaire-9 Score 7 12/05/2023 Patient Health Questionnaire-9 Score 7 12/05/2023 Last PHQ-9: Questionnaire Data Not on file 0 12/05/2023 Housing Stability Answer Date Recorded What is your housing situation today? I have megan reed 08/16/[address] you li ve. Do you have problems with any of the following? None of the above 08/16/2024 Food Insecurity Answer Date Recorded Within the past 12 months, y ou worried that your food would run out before you got money to buy more: Never True 08/16/2024 Within the past 12 months,th e food you bought just didn't last and you didn't have enough money to get more: Never True 09/2024 Transportation Answer Date Recorded In the past 12 months, has l ack of transportation kept you from medical appts, meetings, work or from getting things needed for daily living? No 08/16/2024 Utilities Answer Date Recorded In the past 12 months, has t he electric, gas, oil or water company threatened to shut off services in your home? No 08/16/2024 Depression Answer Date Recorded Patient Health Questionnaire-2 Score 0 12/05/2023 Internet Access Answer Date Recorded Internet Access Q1 Yes 08/16/2024 Internet Access Q2 Not on file 08/16/2024 Comments Unknown Sex and Gender Information Value Date Recorded Sex Assigned at Female 05/13/2022 10:25 AM EDT Legal Sex Female 10:25 AM EDT Gender Identity Female 12/09/2023 11:26 AM EDT Sexual Orientation Straight 12/09/2023 11 :26 AM EDT documented as of this encounter Miscellaneous Notes * Telephone Encounter - Anastasia Rapp - 11/30/2024 10:35 AM EDT Tc from [facility] with [facility] requesting DME for pt - New Wheelcahir - New Large bed - New Non Slip Bath Mat - New large reusable bed mad Contact pt on [phone] documented in this encounter Plan of Treatment Upcoming Encounters Date Type Department Care Team (Late st Contact Info) Description 03/08/2025 2:00 PM EDT Office Visit [facility] MED & PEDS [address] [place] [address] Meghan Portillo MD [address] [place] [address] 04/12/2025 3:00 PM EDT Office Visit [facility] ADULT DENTAL [address] [place] [address] Kali Kulkarni [address] [place] [address] documented as of this encounter Visit Diagnoses Not on filedocumented in this encounter Additional Health Concerns Assessment Noted Time PHQ-9 Depression Total Score: 7 12/05/19 2:33 PM EDT documented as of this encounter Care Teams Casting Cleaner Relationship Specialty Start Date End Date Meghan Portillo MD [address] [place] [id number] PCP - General Internal Medicine 06/14/13 [employer] 06/30/24 02/23/25 Jon 02/18/25 documented as of this encounter
--- OUTSIDE RECORDS SUMMARY | 2025-03-07 14:28 | XMS_ITS | Encounter Summary ---
Author Organization [employer] Address [address] [facility] [address] [place] [address] Care Team Providers Care Broadband Installer Name Role Phone Meghan Portillo MD Primary Care Provider [phone] Reason for Visit * Reason Onset Date Comments chart prep 03/07/2025 Encounter Details Date Type Department Care Team ([facility] st Contact Info) Description 03/07/2025 Telephone [facility] MED & PEDS [address] [place], [place] [phone] Meghan Portillo MD [address] [place] [address] chart prep Social History Tobacco Use Types Packs/Day Years [...] encounter Miscellaneous Notes * Telephone Encounter - Sapna Castro RN - 03/07/2025 2:03 PM EDT Chart Prep Labs: not done Images: not done Referrals: appointment pending Vaccines due: RSV and Zoster Screenings: mammogram Overdue care gaps: PHQ-9 documented in this encounter Plan of Treatment Upcoming Encounters Date Type Department Care Team (Late st Contact Info) Description 03/08/2025 2:00 PM EDT Office Visit [facility] MED & PEDS [address] [place] [address] Meghan Portillo MD [address] [place] [address] 04/12/2025 3:00 PM EDT Office Visit [facility] ADULT DENTAL [address] [place] [address] Kali Kulkarni [address] [place] [address] documented as of this encounter Visit Diagnoses Not on filedocumented in this encounter Additional Health Concerns Assessment Noted Time PHQ-9 Depression Total Score: 7 12/05/19 2:33 PM EDT documented as of this encounter Care Teams Broadband Installer Relationship Specialty Start Date End Date Meghan Portillo MD [address] [place] [id number] PCP - General Internal Medicine 06/14/13 Jon 02/18/25 documented as of this encounter
--- OUTSIDE RECORDS SUMMARY | 2025-03-07 14:28 | XMS_ITS | Encounter Summary ---
Author Organization [employer] Address [address] [facility] [address] [place] [address] Care Team Providers Care Maintenance Painter Apprentice Name Role Phone Meghan Portillo MD Primary Care Provider [phone] Reason for Visit * Reason Onset Date Comments PRE-OP 10/05/2024 Encounter Details Date Type Department Care Team (Late st Contact Info) Description 10/05/2024 Telephone [facility] MEDICINE [address] [place] [address] Meghan Portillo MD [address] [address] PRE-OP Social History Tobacco Use Types Packs/Day Years [...] encounter Miscellaneous Notes * Telephone Encounter - Edgar Galicia - 10/05/2024 11:29 AM EDT Tc from pt requesting office notes from PRE-OP harvey to be FAX to facility as facility inform called PCP office still waiting for Office notes. FAX [phone] documented in this encounter Plan of Treatment Upcoming Encounters Date Type Department Care Team (Late st Contact Info) Description 03/08/2025 2:00 PM EDT Office Visit [facility] MED & PEDS 505 [place] [address] Meghan Portillo MD 505 [place] [address] 04/12/2025 3:00 PM EDT Office Visit [facility] ADULT DENTAL 505 [place] [address] Kali Kulkarni 505 [place] [address] documented as of this encounter Visit Diagnoses Not on filedocumented in this encounter Additional Health Concerns Assessment Noted Time PHQ-9 Depression Total Score: 7 12/05/19 2:33 PM EDT documented as of this encounter Care Teams Maintenance Painter Apprentice Relationship Specialty Start Date End Date Meghan Portillo MD [address] [place] [address] PCP - General Internal Medicine 06/14/13 [employer] 06/30/24 02/23/25 Jon 02/18/25 documented as of this encounter
--- OUTSIDE RECORDS SUMMARY | 2025-03-07 14:28 | XMS_ITS | Encounter Summary ---
Author Organization [employer] Address [address] [facility] [address] [place] [address] Care Team Providers Care Software Engineering Supervisor Name Role Phone Meghan Portillo MD Primary Care Provider [phone] Encounter Details Date Type Department Care Team ([facility] Contact Info) Description 03/05/2024 Orders Only [facility] [address] [place], [place] [phone] Meghan Portillo MD 505 [place], [place] [phone] Gastroesophageal reflux disease without esophagitis (Primary Dx) [...] Description 03/08/2025 2:00 PM EDT Office Visit [facility] MED & PEDS 505 [place], [place] [phone] Meghan Portillo MD 505 [place] [address] 04/12/2025 3:00 PM EDT Office Visit [facility] ADULT DENTAL 505 [place] [address] Cayla Kali 505 [place] [address] documented as of this encounter Visit Diagnoses Diagnosis Gastroesophageal reflux disease without esophagitis- Primary Esophageal reflux documented in this encounter Additional Health Concerns Assessment Noted Time PHQ-9 Depression Total Score: 7 12/05/19 24 2:33 PM EDT documented as of this encounter Care Teams Software Engineering Supervisor Relationship Specialty Start Date End Date Meghan Portillo MD [address] [place] [address] PCP - General Internal Medicine 06/14/13 [employer] 06/30/24 02/23/25 Aveanna 02/18/25 documented as of this encounter
--- OUTSIDE RECORDS SUMMARY | 2025-03-07 14:28 | XMS_ITS | Encounter Summary ---
Author Organization [facility] Address [address] [place] [address] Care Team Providers Care Slip Presser Name Role Phone Meghan Portillo MD Primary Care Provider [phone] Encounter Details Date Type Department Care Team (Late st Contact Info) Description 01/30/2025 Lab Requisition [facility] Main Lab [address] [facility] [place] [phone] Katelynn Bee MD [address] [facility] 1 [place], [place] [phone] Anemia, unspecified; Other disorders of electrolyte and fluid balance, [...] Associated Diagnosis Comments COMPLETE BLOOD COUNT Routine 01/31/2025 7:50 AM EDT Anemia, unspecified Other disorders of electrolyte and fluid balance, not elsewhere classified COMPREHENSIVE METABOLIC PANEL Routine 01/31/2025 7:50 AM EDT Anemia, unspecified Other disorders of electrolyte and fluid balance, not elsewhere classified documented in this encounter Results * (ABNORMAL) Comprehensive metabolic panel (01/31/2025 7:50 AM EDT) Sodium 140 133 - 145 mmol/L LAB CHEMISTRY METHOD 01/31/2025 2:00 PM [facility] Potassium 4.2 3.5 - 5.5 mmol/L LAB CHEMISTRY METHOD 01/31/2025 2:00 PM [facility] Chloride 104 96 - 110 mmol/L LAB CHEMISTRY METHOD 01/31/2025 2:00 PM [facility] CO2 26 21 - 32 mmol/L LAB CHEMISTRY METHOD 01/31/2025 2:00 PM [facility] Anion Gap 10 3 - 11 LAB CHEMISTRY METHOD 01/31/2025 2:00 PM [facility] Glucose 103(H) 70 - 100 mg/dL LAB CHEMISTRY METHOD 01/31/2025 2:00 PM [facility] BUN 18 5 - 25 mg/dL LAB CHEMISTRY METHOD 01/31/2025 2:00 PM [facility] Creatinine 0.96 0.50 - 1.10 mg/dL LAB CHEMISTRY METHOD 01/31/2025 2:00 PM [facility] eGFR 59(L) >=60 mL/min/1. 73m2 LAB CHEMISTRY METHOD 01/31/2025 2:00 PM [facility] Comment:Calculation based on the Chronic Kidney Disease Epidemiology Collaboration (CKD-EPI) equation refit without adjustment for race. BUN/Creatinine Ratio 18.8 LAB CHEMISTRY METHOD 01/31/2025 2:00 PM [facility] Calcium 8.6 8.5 - 10.5 mg/dL LAB CHEMISTRY METHOD 01/31/2025 2:00 PM [facility] AST (SGOT) 29 10 - 42 unit/L LAB CHEMISTRY METHOD 01/31/2025 2:00 PM [facility] ALT (SGPT) 29 10 - 60 unit/L LAB CHEMISTRY METHOD 01/31/2025 2:00 PM EDT [facility] Alkaline Phosphatase 57 42 - 121 unit/L LAB CHEMISTRY METHOD 01/31/2025 2:00 PM EDT [facility] Total Protein 6.0 6.0 - 8.0 g/dL LAB CHEMISTRY METHOD 01/31/2025 2:00 PM EDT [facility] Albumin 3.3 3.2 - 5.0 g/dL LAB CHEMISTRY METHOD 01/31/2025 2:00 PM EDT [facility] Total Bilirubin 0.4 0.0 - 1.4 mg/dL LAB CHEMISTRY METHOD 01/31/2025 2:00 PM EDT [facility] Blood Venous blood specimen / Unknown Venipuncture / Unknown 01/31/2025 7:50 AM EDT 01/31/2025 11:27 AM EDT Katelynn Bee MD LAB BLOOD ORDERABLES Fin al Result [facility] [address] [place] [address], * (ABNORMAL) Complete blood count (01/31/2025 7:50 AM EDT) WBC 6.3 4.8 - 10.8 K/mcL LAB HEMETOLOGY METHOD 01/31/2025 12:30 PM EDT [facility] RBC 4.00 3.80 - 4.80 M/mcL LAB HEMETOLOGY METHOD 01/31/2025 12:30 PM EDT [facility] Hemoglobin 11.3(L) 11.5 - 16.0 g/dL LAB HEMETOLOGY METHOD 01/31/2025 12:30 PM EDT [facility] Hematocrit 36.9 35.0 - 47.0 % LAB HEMETOLOGY METHOD 01/31/2025 12:30 PM EDT [facility] MCV 93.4 79.0 - 98.0 FL LAB HEMETOLOGY METHOD 01/31/2025 12:30 PM EDT [facility] MCH 28.6 27.0 - 32.0 pcg LAB HEMETOLOGY METHOD 01/31/2025 12:30 PM EDT [facility] MCHC 30.6(L) 32.0 - 37.0 g/dL LAB HEMETOLOGY METHOD 01/31/2025 12:30 PM EDT [facility] RDW 15.0 11.0 - 15.0 % LAB HEMETOLOGY METHOD 01/31/2025 12:30 PM EDT [facility] Platelets 304 130 - 400 K/mcL LAB HEMETOLOGY METHOD 01/31/2025 12:30 PM [facility] MPV 10.4 7.0 - 11.0 FL LAB HEMETOLOGY METHOD 01/31/2025 12:30 PM EDT [facility] NRBC 0.0 <1.0 % LAB HEMETOLOGY METHOD 01/31/2025 12:30 PM T [facility] NRBC Absolute 0.00 <0.10 K/mcL LAB HEMETOLOGY METHOD 01/31/2025 12:30 PM [facility] Blood Venous blood specimen / Unknown Venipuncture / Unknown 01/31/2025 7:50 AM EDT 01/31/2025 11:27 AM EDT us Katelynn Bee MD LAB BLOOD ORDERABLES Fin al Result [facility] [address] [place] [address], documented in this encounter Visit Diagnoses Diagnosis Anemia, unspecified Other disorders of electrolyte and fluid balance, not elsewhere classified documented in this encounter Additional Health Concerns Infection Onset Date Last Indicated Resolved Time C. difficile Rule-Out 02/05/2025 02/04/20252024 11:09 AM EDT documented as of this encounter Care Teams Slip Presser Relationship Specialty Start Date End Date Meghan Portillo MD [address] [place] [address] PCP - General 12/10/23 documented as of this encounter
--- OUTSIDE RECORDS SUMMARY | 2025-03-07 14:28 | XMS_ITS | Encounter Summary ---
Author Organization [employer] Address [address] [facility] 7t [place] [address] Care Team Providers Care Finishing Pan Operator Name Role Phone Meghan Portillo MD Primary Care Provider [phone]- [phone] Reason for Visit * Reason Onset Date Comments FYI 07/27/2024 Encounter Details Date Type Department Care Team ([facility] st Contact Info) Description 07/27/2024 Telephone [facility] MED & PEDS [address] [place], [place] [phone] Meghan Portillo MD 505 [place] [address] FYI Social History Tobacco Use Types Packs/Day Years [...] encounter Miscellaneous Notes * Telephone Encounter - Susan Calvin - 07/27/2024 9:36 AM EST TC tanesha Calvin with [employer] calling to inform pt has been declining services for ot and pt . States they tried couple times to visit pt for evaluation but pt continues to decline.Any further questions may contact Marixa at phone # [phone]. documented in this encounter Plan of Treatment Upcoming Encounters Date Type Department Care Team (Late st Contact Info) Description 03/08/2025 2:00 PM EDT Office Visit [facility] MED & PEDS [address] [place] [address] Meghan Portillo MD [address] [place] [address] 04/12/2025 3:00 PM EDT Office Visit [facility] ADULT DENTAL [address] [place] [address] Kali Kulkarni 505 [place] [address] documented as of this encounter Visit Diagnoses Not on filedocumented in this encounter Additional Health Concerns Assessment Noted Time PHQ-9 Depression Total Score: 7 12/05/19 24 2:33 PM EDT documented as of this encounter Care Teams Finishing Pan Operator Relationship Specialty Start Date End Date Meghan Portillo MD [address] [place] [address] PCP - General Internal Medicine 06/14/13 [employer] 06/30/24 02/23/25 Jon 02/18/25 documented as of this encounter
--- OUTSIDE RECORDS SUMMARY | 2025-03-07 14:28 | XMS_ITS | Encounter Summary ---
Author Organization [employer] Address [address] [facility] 7t [place] [address] Care Team Providers Care Player Piano Technician Name Role Phone Meghan Portillo MD Primary Care Provider [phone]- [phone] Reason for Visit * Reason Onset Date Comments Medication Question 2024 Encounter Details Date Type Department Care Team ([facility] st Contact Info) Description 2024 Telephone [facility] MED & PEDS [address] [place], [place] [phone] Meghan Portillo MD 505 [place] [address] Medication Question Social History Tobacco Use Types Packs/Day Years [...] encounter Miscellaneous Notes * Telephone Encounter - Meghan Portillo MD - 2024 10:08 PM EDT I will correct the prescription and send 1 tablet at bedtime * Telephone Encounter - Susan Calvin - 2024 11:19 AM EDT Tc from Lizabeth with [facility] requesting clarification on medication sucralfate (Carafate) 1 g tablet .States pt was at 1 tablet at bed time but want to confirm increase for 3 tablets daily. documented in this encounter Plan of Treatment Upcoming Encounters Date Type Department Care Team (Late st Contact Info) Description 03/08/2025 2:00 PM EDT Office Visit [facility] MED & PEDS [address] [place] [address] Meghan Portillo MD 505 [place] [address] 04/12/2025 3:00 PM EDT Office Visit [facility] ADULT DENTAL 505 [place] [address] Kali Kulkarni 505 [place] [address] documented as of this encounter Visit Diagnoses Not on filedocumented in this encounter Additional Health Concerns Assessment Noted Time PHQ-9 Depression Total Score: 7 12/05/19 24 2:33 PM EDT documented as of this encounter Care Teams Player Piano Technician Relationship Specialty Start Date End Date Meghan Portillo MD 505 [place] [address] PCP - General Internal Medicine 06/14/13 [employer] 06/30/24 02/23/25 [employer] 02/18/25 documented as of this encounter
--- OUTSIDE RECORDS SUMMARY | 2025-03-07 14:28 | XMS_ITS | Encounter Summary ---
Author Organization [employer] Address [address] [facility] 7t [place] [address] Care Team Providers Care Manager Of Health Name Role Phone Meghan Portillo MD Primary Care Provider [phone] Reason for Visit * Reason Onset Date Comments Med Refill 04/15/2024 Encounter Details Date Type Department Care Team ([facility] st Contact Info) Description 04/15/2024 Telephone [facility] MED & PEDS [address] [place], [place] [phone] Meghan Portillo MD 505 [place] [address] Med Refill Social History Tobacco Use Types Packs/Day Years [...] encounter Miscellaneous Notes * Telephone Encounter - Caridad Jensen LPN - 04/15/2024 10:55 AM EDT Please review request. * Telephone Encounter - Tess Cameron - 04/15/2024 10:46 AM EDT TC from Adam at [facility] requesting medication refill prescribed by a different provider. Medications needing refill : sucralfate 1 gm tablet daily at bed time. Can be crushed and taken with water. To be sent to: [facility] [address] [place] [address] documented in this encounter Plan of Treatment Upcoming Encounters Date Type Department Care Team ([facility] st Contact Info) Description 03/08/2025 2:00 PM EDT Office Visit [facility] MED & PEDS [address] [place] [address] Meghan Portillo MD [address] [place] [address] 04/12/2025 3:00 PM EDT Office Visit [facility] CHC ADULT DENTAL [address] [place] [address] CaylaKali devi 505 [place] [address] documented as of this encounter Visit Diagnoses Not on filedocumented in this encounter Additional Health Concerns Assessment Noted Time PHQ-9 Depression Total Score: 7 12/05/19 24 2:33 PM EDT documented as of this encounter Care Teams Manager Of Health Relationship Specialty Start Date End Date Meghan Portillo MD [address] [place] [address] PCP - General Internal Medicine 06/14/13 [employer] 06/30/24 02/23/25 Jon 02/18/25 documented as of this encounter
--- OUTSIDE RECORDS SUMMARY | 2025-03-07 14:28 | XMS_ITS | Continuity of Care Document ---
Author Name Pablito Ko Address [address] [place] [address] Organization Unknown Address [address] [place] [address] Medications No known medications Problems No known problems
--- OUTSIDE RECORDS SUMMARY | 2025-03-07 14:28 | XMS_ITS | Encounter Summary ---
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) Social History Tobacco Use Types [...] Description 03/08/2025 2:00 PM EDT Office Visit [facility] MED & PEDS [address] [place], [place] [phone] Meghan Portillo MD 505 [place] [address] 04/12/2025 3:00 PM EDT Office Visit [facility] CHC ADULT DENTAL [address] [place] [address] CaylaDonn deviio 505 [place] [address] documented as of this encounter Visit Diagnoses Diagnosis Acute idiopathic gout involving toe of left foot- Primary documented in this encounter Additional Health Concerns Assessment Noted Time PHQ-9 Depression Total Score: 7 12/05/19 24 2:33 PM EDT documented as of this encounter Care Teams Career Guidance Counselor Relationship Specialty Start Date End Date Meghan Portillo MD [address] [place] [address] PCP - General Internal Medicine 06/14/13 [employer] 06/30/24 02/23/25 Aveanngamaliel 02/18/25 documented as of this encounter
--- OUTSIDE RECORDS SUMMARY | 2025-03-07 14:29 | XMS_ITS | Encounter Summary ---
Author Organization [employer] Address [address] [facility] 7t [place] [address] Care Team Providers Care Physical Sciences Instructor Name Role Phone Meghan Portillo MD Primary Care Provider [phone]- [phone] Reason for Visit * Reason Onset Date Comments Hospital Follow-up 06/28/2024 Encounter Details Date Type Department Care Team (Late st Contact Info) Description 06/28/2024 Telephone [facility] MEDIC[facility] [address] [place] [address] Meghan Portillo MD 505 [place] [address] Hospital Follow-up Social History Tobacco Use Types Packs/Day Years [...] encounter Miscellaneous Notes * Telephone Encounter - Bettiearianna Galicia - 06/28/2024 4:07 PM EST Tc from pt requesting a F appt. Hospital: [facility] Date of admission: 06/23/2024 Discharge date:06/27/2024 Diagnosed:Gout *Send message to [facility] Care Coordinators documented in this encounter Plan of Treatment Upcoming Encounters Date Type Department Care Team (Late st Contact Info) Description 03/08/2025 2:00 PM EDT Office Visit [facility] MED & PEDS [address] [place] [address] Meghan Portillo MD [address] [place] [address] 04/12/2025 3:00 PM EDT Office Visit [facility] ADULT DENTAL [address] [place] [address] Kali Kulkarni 505 [place] [address] documented as of this encounter Visit Diagnoses Not on filedocumented in this encounter Additional Health Concerns Assessment Noted Time PHQ-9 Depression Total Score: 7 12/05/19 24 2:33 PM EDT documented as of this encounter Care Teams Physical Sciences Instructor Relationship Specialty Start Date End Date Meghan Portillo MD [address] [place] [address] PCP - General Internal Medicine 06/14/13 [employer] 06/30/24 02/23/25 Jon 02/18/25 documented as of this encounter
--- OUTSIDE RECORDS SUMMARY | 2025-03-07 14:29 | XMS_ITS | Encounter Summary ---
Author Organization [employer] Address [address] [facility] [address] [place] [address] Care Team Providers Care Assistant Professor Of Drama Name Role Phone Meghan Portillo MD Primary Care Provider [phone] Encounter Details Date Type Department Care Team (Late st Contact Info) Description 12/08/2024 Orders Only [facility] CH[facility] MED & PEDS [address] [place], [place] [phone] Meghan Portillo MD [address] [place], [place] [phone] Social History Tobacco Use Types Packs/Day Years [...] Description 03/08/2025 2:00 PM EDT Office Visit [facility] MED & PEDS [address] [place] [address] Meghan Portillo MD [address] [place] [address] 04/12/2025 3:00 PM EDT Office Visit [facility] ADULT DENTAL 505 [place] [address] Kali Kulkarni 505 [place] [address] documented as of this encounter Visit Diagnoses Not on filedocumented in this encounter Additional Health Concerns Assessment Noted Time PHQ-9 Depression Total Score: 7 12/05/19 24 2:33 PM EDT documented as of this encounter Care Teams Assistant Professor Of Drama Relationship Specialty Start Date End Date Meghan Portillo MD [address] [place] [address] PCP - General Internal Medicine 06/14/13 [employer] 06/30/24 02/23/25 Aveanngamaliel 02/18/25 documented as of this encounter
--- OUTSIDE RECORDS SUMMARY | 2025-03-07 14:29 | XMS_ITS | Encounter Summary ---
Author Organization [employer] Address [address] [place] [address] 7t [place] [address] Care Team Providers Care Drying Can Worker Name Role Phone Meghan Portillo MD Primary Care Provider [phone]- [phone] Encounter Details Date Type Department Care Team (Late Contact Info) Description 09/05/2023 Orders Only [facility] MED & PEDS [address] [place] [address] Meghan Portillo MD [address] [place] [address] Chronic midline low back pain without sciatica (Primary Dx) Social History Tobacco Use Types Packs/Day Years Used Date Smoking Tobacco: Never Smokeless Tobacco: Never Alcohol Use Standard Drinks/Week Comments Defer 0 (1 standard drink = 0.6 oz pur e alcohol) Comments Unknown Sex and Gender Information Value [...] Visit [facility] MED & PEDS [address] [place] [address] Meghan Portillo MD [address] [place] [address] 04/12/2025 3:00 PM EDT [facility] Visit [facility] [address] [place] [address] Kali Kulkarni 505 [place] [address] documented as of this encounter Visit Diagnoses Diagnosis Chronic midline low back pain without sciatica- Primary documented in this encounter Care Teams Drying Can Worker Relationship Specialty Start Date End Date Meghan Portillo MD [address] [place] [address] PCP - General Internal Medicine 06/14/13 [employer] 06/30/24 02/23/25 Jon 02/18/25 documented as of this encounter
--- OUTSIDE RECORDS SUMMARY | 2025-03-07 14:29 | XMS_ITS | Clinical Summary ---
Author Organization [employer] Address [address] [place] [address] [address] [place] [address] Care Team Providers Care Eeg Tech Name Role Phone Meghan Portillo MD Primary Care Provider [phone] Allergies Active Allergy Reactions Criticality Noted Date Comments Iodinated Contrast Media Rash Low 06/29/2024 Levofloxacin 05/21/2005 Medications fluticasone (Flonase) 50 MCG/ACT nasal sprayIndications: Seasonal allergic rhinitis due to other allergic trigger Administer 1-2 sprays into each nostril in the morning. Shake gently. Before first use, prime pump. After use, clean tip and replace cap. 16 g 023 Active pantoprazole (Protonix) 40 MG EC tabletIndications :Gastroesophageal reflux disease without esophagitis TAKE 1 TABLET BY MOUTH ONCE DAILY TAKE 30 MINUTES BEFORE BREAKFAST 30 tablet 11 024 Active carboxymethylcell ulose (Refresh Plus) 0.5 % ophthalmic solution Use as directed for dry eye 024 Active allopurinol (Zyloprim) 100 MG tablet Take 1 tablet by mouth Once per day. Active DULoxetine (Cymbalta) [address] capsule Take 1 capsule (20 mg) by mouth 2 times daily. Do not crush or chew. 60 capsule 025 2025 Active miconazole (Micatin) 2 % creamIndications: Diaper rash Apply topically 2 times daily. 600 mL 11 025 Active Calcium Carb-Cholecalcife rol 600-10 MG-MCG tablet Take 600 mg combined by mouth Once per day. TAKE 1 TABLET BY MOUTH ONCE DAILY 30 tablet 5 025 Active cyanocobalamin (Vitamin B-12) 1000 MCG tablet TAKE 1 TABLET BY MOUTH EVERY MORNING 30 tablet 5 Active Multiple Vitamin (Multivitamin) tablet TAKE 1 TABLET BY MOUTH EVERY DAY 30 tablet Active albuterol 108 (90 Base) MCG/ACT inhalerIndication s:Moderate persistent asthma without complication INHALE 2 PUFFS BY MOUTH EVERY 4 HOURS NEEDED FOR WHEEZING 18 g Active fexofenadine (Irina Allergy) 180 MG tabletIndications :Seasonal allergic rhinitis due to other allergic trigger TAKE 1 TABLET BY MOUTH EVERY MORNING 30 tablet 5 Active amLODIPine (Norvasc) 5 MG tablet Take 1 tablet by mouth Once per day. Active apixaban (Eliquis) 2.5 MG tablet Take 1 tablet by mouth every 12 (twelve) hours. Active gabapentin (Neurontin) 600 MG tablet Take 1 tablet by mouth 3 times daily. Active lisinopril 10 MG tablet Take 1 tablet by mouth Once per day. Active metoprolol tartrate (Lopressor) 50 MG tablet Take 1 tablet by mouth every 12 (twelve) hours. Active mirtazapine (Remeron) 15 MG tablet Take 0.5 tablets by mouth at bedtime. Active Vonoprazan Fumarate 20 MG tabletIndications :Gastroesophageal reflux disease without esophagitis Take 20 mg by mouth in the morning. 60 tablet Active lisinopril 5 MG tabletIndications :Essential hypertension Take 1 tablet (5 mg) by mouth Once per day. 30 tablet 2025 Active naproxen (Naprosyn) 500 MG tablet Take 1 tablet (500 mg) by mouth with breakfast and with evening meal. 60 tablet 024 2024 Discontinued(M ed list cleanup (will not trigger notification to Pharmacy)) famotidine (Pepcid) 20 MG tabletIndications :Gastroesophageal reflux disease without esophagitis Take 1 tablet (20 mg) by mouth 2 times daily. 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 30 tablet 11 024 2024 Discontinued(M ed list cleanup (will not trigger notification to Pharmacy)) colchicine 0.6 MG tabletIndications :Acute idiopathic gout involving toe of left foot Take 1 tablet (0.6 mg) by mouth Once per day. 20 tablet 2024 Discontinued(M ed list cleanup (will not trigger notification to Pharmacy)) amLODIPine (Norvasc) 10 MG tabletIndications :Essential hypertension TAKE 1 TABLET BY MOUTH EVERY DAY 90 tablet 3 2024 Discontinued(M ed list cleanup (will not trigger notification to Pharmacy)) allopurinol (Zyloprim) 100 MG tabletIndications :Acute idiopathic gout involving toe of left foot Take 1 tablet (100 mg) by mouth 2 times daily. 60 tablet 11 2024 Discontinued(M ed list cleanup (will not trigger notification to Pharmacy)) lisinopril (Prinivil) 20 MG tabletIndications :Essential hypertension Take 1 tablet (20 mg) by mouth Once per day. 30 tablet 11 2024 Discontinued(M ed list cleanup (will not trigger notification to Pharmacy)) miconazole (Micatin) 2 % creamIndications: Diaper rash Apply topically 2 times daily. 198 g 3 2024 Discontinued(M ed list cleanup (will not trigger notification to Pharmacy)) mirtazapine (Remeron) 7.5 MG tabletIndications :Depressive disorder TAKE 1 TABLET BY MOUTH AT BEDTIME 30 tablet 5 025 2024 Discontinued(M ed list cleanup (will not trigger notification to Pharmacy)) Neurontin 400 MG capsuleIndication s:Fibromyositis,P rimary osteoarthritis of knee, unspecified laterality TAKE 1 CAPSULE BY MOUTH THREE TIMES A DAY. PLEASE PROVIDE NEURONTIN NO SUBSTITUTION. 90 capsule 11 025 2024 Discontinued(M ed list cleanup (will not trigger notification to Pharmacy)) ibuprofen 600 MG tablet Take 1 tablet (600 mg) by mouth every 6 (six) hours if needed for mild pain for up to 20 doses. 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 Hypertension 06/21/2013 Osteoarthritis of knee 06/21/2013 Seasonal allergic rhinitis 06/21/2013 Urinary incontinence 06/21/2013 Encounters Date Type Department Care Team Description 03/07/2025 Telephone [facility] [address] [place] [address] Meghan Portillo MD chart prep 02/28/2025 1:15 PM EDT Office Visit [facility] [address] [place] [address] Meghan Portillo MD Gastroesophageal reflux disease without esophagitis (Primary Dx); Functional diarrhea; Essential hypertension; Small bowel obstruction ([facility]) 02/28/2025 Travel 02/25/2025 Telephone [facility] [address] [place] [address] Meghan Portillo MD ECHO APPT 02/25/2025 Telephone [facility] [address] [place] [address] Meghan Portillo MD chart prep 02/23/2025 Patient Outreach [facility] [address] [place] [address] Meghan Portillo MD Transition Of Care (Tcm) (Discharge summary Request) 02/21/2025 Telephone [facility] [address] [place] [address] Meghan Portillo MD verbal orders 02/21/[address] [phone] Meghan Portillo MD Verbal Order 02/18/2025 Telephone [facility] [address] [place] [address] Meghan Portillo MD requesting call back 02/14/2025 Patient Outreach [facility] [address] [place] [address] Meghan Portillo MD Transition Of Care (Tcm) (HDF- scheduled (direct)) 01/31/2025 Telephone [facility] [address] [place] [address] Meghan Portillo MD Prior Auth Procedure 01/25/2025 Telephone [facility] [address] [place] [address] Kali Kulkarni 01/17/2025 Refill [facility] [address] [place] [address] Meghan Portillo MD Primary osteoarthritis of knee, unspecified laterality; Seasonal allergic rhinitis due to other allergic trigger 01/04/2025 1:30 PM EDT Office Visit [facility] [address] [place] [address] Stacy Kulkarniricio 12/22/2024 1:00 PM EDT Office Visit [facility] [address] [place] [address] Kali Kulkarni 12/09/2024 Results Follow-Up [facility] [address] [place] [address] Yamilex Zamorano, TRISTA CBC auto differential, Comprehensive Metabolic Panel, TSH W/Reflex to FT4 12/08/2024 1:00 PM EDT Office Visit [facility] [address] [facility] [place] [address] Kleber Portillo 12/08/2024 Orders Only [facility] [address] [place] [address] Meghan Espinoza MD 12/07/2024 1:45 PM EDT Office Visit [facility] [address] [facility] [place] [address] Meghan Portillo MD Primary hypertension (Primary Dx); SOB (shortness of breath); Acute idiopathic gout involving toe of left foot; Primary osteoarthritis of both knees 12/07/2024 Travel from Last 3 Months Immunizations Immunization Administration Dates Next Due Influenza High-dose Quadrivalent Preservative Fr ee 05/28/2022,05/18/2021 Influenza injectable quadriv alent IIV4 with preservative 04/29/2018,05/18/2015 Influenza, High Dose Seasonal, Preservative Free 06/25/2024 Influenza, IIV3, injectable 04/10/2016, 4 Pfizer Covid-19 Vaccine 12+ 07/02/2024, 4 Pneumococcal Conjugate PCV 20 12/05/2023 Pneumococcal Polysaccharide PPSV23 03/03/2015 Tdap 12/05/2023 Zoster, live 06/21/2013 Social History Tobacco Use Types Packs/Day Years Used Date Smoking Tobacco: Never Smokeless Tobacco: Never Tobacco Cessation:Counseling Given: No Alcohol Use Standard Drinks/Week Comments Defer 0 [...] Orientation Straight 12/09/2023 11 :26 AM EDT Last Filed Vital Signs Vital Sign Reading Time Taken Comments Blood Pressure 122/74 02/28/2025 1:17 PM EDT Pulse 75 02/28/2025 1:17 PM EDT Temperature 36.7 C (98.1 F) 12/07/2024 1:44 PM EDT Respiratory Rate 20 02/28/2025 1:17 PM EDT Oxygen Saturation 94% 02/28/2025 1:17 PM EDT Inhaled Oxygen Concentration - - Weight 125 kg (276 lb) 02/28/2025 1:17 PM EDT Height 161.3 cm (5' 3.5 ) 02/28/2025 1:17 PM EDT Body Mass Index 48.12 02/28/2025 1:17 PM EDT Plan of Treatment Upcoming Encounters Date Type Department Care Team (Late st Contact Info) Description 03/08/2025 2:00 PM EDT Office Visit [facility] [address] [place] [address] Meghan Portillo MD [address] [place] [address] 04/12/2025 3:00 PM EDT Office Visit [facility] [address] [place] [address] Kali Kulkarin [address] [place] [address] Health Maintenance Due Date Last Done Comments Zoster Vaccines (2 of 3) 08/16/2013 06/21/2013 RSV Patients and Patients Aged 60 years or older (1 - 1-dose 75+ series) 2017 Dental Prophylaxis 07/31/2024 01/28/2024 Depression Screening 12/04/2024 12/05/2023, 12/05/19 COVID-19 Vaccine ( season) 2024 07/02/2024, 12/05/2023, 05/28/2022, Additional history exists Influenza Vaccine (#1) 2025 , 06/25/2024, 05/28/2022, Additional history exists Dental Oral Exam 06/11/2025 12/08/2024, , 09/06/2022 Alcohol/Substance Use Screening 08/16/2025 08/16/2024 SDOH Screening 08/16/2025 08/16/2024 Dental X-Ray: Full Mouth 09/07/2025 09/06/2022 Dental X-Ray: Bitewings 12/09/2025 12/09/19, 01/28/2024, 09/06/2022 Tobacco Screening 02/28/2026 02/28/2025 Lipid Panel 12/04/2028 12/05/2023, 08/16/2020 DTaP/Tdap/Td Vaccines (2 - Td or Tdap) 12/04/2033 12/05/2023 Pneumococcal Vaccine: 50+ Years Completed 12/05/2023, 03/03/2022, 03/03/2015 HIB Vaccines Aged Out No longer eligi ble based on patient's age to complete this topic HPV Vaccines Aged Out No longer eligi ble based on patient's age to complete this topic Hepatitis A Vaccines Aged Out No long er eligible based on patient's age to complete this topic Hepatitis B Vaccines Aged Out No long er eligible based on patient's age to complete this topic IPV Vaccines Aged Out No longer eligi ble based on patient's age to complete this topic Meningococcal B Vaccine Aged Out No l onger eligible based on patient's age to complete this topic Meningococcal Vaccine Aged Out No marv lois eligible based on patient's age to complete this topic RSV under 20 months Aged Out No longe r eligible based on patient's age to complete this topic Rotavirus Vaccines Aged Out No longer eligible based on patient's age to complete this topic Procedures Procedure Name Priority Date/Time Associated Diagnosis Comments CBC WITH AUTO DIFFERENTIAL Routine 03/07/2025 1:10 PM EDT Gastroesophageal reflux disease without esophagitis NO CHARGE PROCEDURE Routine 01/04/2025 1 :30 PM EDT 2 EXTRACTION, ERUPTED TOOTH OR EXPOSED ROOT (ELEVATION/FORCEPS REMOVAL) Routine 12/22/2024 1:00 PM EDT 27 EXTRACTION, ERUPTED TOOTH OR EXPOSED ROOT (ELEVATION/FORCEPS REMOVAL) Routine 12/22/2024 1:00 PM EDT 26 EXTRACTION, ERUPTED TOOTH OR EXPOSED ROOT (ELEVATION/FORCEPS REMOVAL) Routine 12/22/2024 1:00 PM EDT 25 EXTRACTION, ERUPTED TOOTH OR EXPOSED ROOT (ELEVATION/FORCEPS REMOVAL) Routine 12/22/2024 1:00 PM EDT 24 EXTRACTION, ERUPTED TOOTH OR EXPOSED ROOT (ELEVATION/FORCEPS REMOVAL) Routine 12/22/2024 1:00 PM EDT 23 EXTRACTION, ERUPTED TOOTH OR EXPOSED ROOT (ELEVATION/FORCEPS REMOVAL) Routine 12/22/2024 1:00 PM EDT 22 EXTRACTION, ERUPTED TOOTH OR EXPOSED ROOT (ELEVATION/FORCEPS REMOVAL) Routine 12/22/2024 1:00 PM EDT 21 EXTRACTION, ERUPTED TOOTH OR EXPOSED ROOT (ELEVATION/FORCEPS REMOVAL) Routine 12/22/2024 1:00 PM EDT 10 EXTRACTION, ERUPTED TOOTH OR EXPOSED ROOT (ELEVATION/FORCEPS REMOVAL) Routine 12/22/2024 1:00 PM EDT 9 EXTRACTION, ERUPTED TOOTH OR EXPOSED ROOT (ELEVATION/FORCEPS REMOVAL) Routine 12/22/2024 1:00 PM EDT 8 EXTRACTION, ERUPTED TOOTH OR EXPOSED ROOT (ELEVATION/FORCEPS REMOVAL) Routine 12/22/2024 1:00 PM EDT 7 EXTRACTION, ERUPTED TOOTH OR EXPOSED ROOT (ELEVATION/FORCEPS REMOVAL) Routine 12/22/2024 1:00 PM EDT 4 EXTRACTION, ERUPTED TOOTH OR EXPOSED ROOT (ELEVATION/FORCEPS REMOVAL) Routine 12/22/2024 1:00 PM EDT 28 EXTRACTION, ERUPTED TOOTH OR EXPOSED ROOT (ELEVATION/FORCEPS REMOVAL) Routine 12/22/2024 1:00 PM EDT 15 EXTRACTION, ERUPTED TOOTH OR EXPOSED ROOT (ELEVATION/FORCEPS REMOVAL) Routine 12/22/2024 1:00 PM EDT 14 EXTRACTION, ERUPTED TOOTH OR EXPOSED ROOT (ELEVATION/FORCEPS REMOVAL) Routine 12/22/2024 1:00 PM EDT 31 EXTRACTION, ERUPTED TOOTH OR EXPOSED ROOT (ELEVATION/FORCEPS REMOVAL) Routine 12/22/2024 1:00 PM EDT INTRAORAL - PERIAPICAL EACH ADDITIONAL RADIOGRAPHIC IMAGE Routine 12/08/2024 1:00 PM EDT INTRAORAL - PERIAPICAL EACH ADDITIONAL RADIOGRAPHIC IMAGE Routine 12/08/2024 1:00 PM EDT INTRAORAL - PERIAPICAL EACH ADDITIONAL RADIOGRAPHIC IMAGE Routine 12/08/2024 1:00 PM EDT INTRAORAL - PERIAPICAL FIRST RADIOGRAPHIC IMAGE Routine 12/08/2024 1:00 PM EDT ORAL HYGIENE INSTRUCTIONS Routine 12/08/2024 1:00 PM EDT BITEWINGS - 2 RADIOGRAPHIC IMAGES Routine 12/08/2024 1:00 PM EDT CASE PRESENTATION, DETAILED AND EXTENSIVE TREATMENT PLANNING Routine 12/08/2024 1:00 PM EDT PERIODIC ORAL EVALUATION - ESTABLISHED PATIENT Routine 12/08/2024 1:00 PM EDT TSH W/REFLEX TO FT4 Routine 12/08/2024 1 2:45 PM EDT SOB (shortness of breath) COMPREHENSIVE METABOLIC PANEL Routine 12/08/2024 12:45 PM EDT SOB (shortness of breath) CBC WITH AUTO DIFFERENTIAL Routine 12/08/2024 12:45 PM EDT SOB (shortness of breath) Full PROPHYLAXIS - ADULT Routine 01/28/2024 2:00 PM EDT LIPID PANEL, STANDARD Routine 12/05/2023 2:45 PM EDT Hypercholesterolemi a INTRAORAL - COMPLETE SERIES OF RADIOGRAPHIC IMAGES Routine 09/06/2022 2:00 PM EST from Last 3 Months or Most Recently Relevant to Health Maintenance Results * CBC auto differential (03/07/2025 1:10 PM EDT) Only the most recent of2 resultswithin the time period is included. White Blood Count 8.7 4.8 - 10.8 X10*3/uL [facility] Red Blood Count 4.39 4.20 - 5.50 X10*6/uL [facility] Hemoglobin 12.1 12.0 - 16.0 g/dl [facility] Hematocrit 38.8 37.0 - 47.0 % [facility] Mean Corpuscular Volume 88.4 80.0 - 98.0 fL [facility] Mean Corpuscular Hemoglobin 27.6 27.0 - 33.0 pg [facility] Mean Corpuscular HGB Conc 31.2 31.0 - 35.0 g/dl [facility] Red Cell Distribution Width 14.0 11.0 - 16.0 % [facility] Platelet Count 317 160 - 400 X10*3/uL [facility] Mean Platelet Volume 10.3 9.4 - 12.3 fL [facility] Neutrophils Percent Auto 65.5 45 - 73 % [facility] Imm Gran Pct Auto 0.2 0.0 - 0.4 % [facility] Lymphocytes Percent Auto 26.1 20 - 40 % [facility] Monocytes Percent Auto 5.2 2 - 11 % [facility] Eosinophils Percent Auto 2.3 0 - 4 % [facility] Basophils Percent Auto 0.7 0 - 2 % [facility] NRBC Pct Auto 0.0 0.0 - 0.2 /100WBC [facility] Neutrophils Absolute Auto 5.7 2.0 - 8.3 x10*3/uL [facility] Imm Gran Abs Auto 0.02 0.00 - 0.03 X10*3/uL [facility] Lymphocytes Absolute Auto 2.3 1.2 - 4.9 X10*3/uL [facility] Monocytes Absolute Auto 0.5 0.1 - 1.2 X10*3/uL [facility] Eosinophils Absolute Auto 0.2 0.0 - 0.4 X10*3/uL [facility] Basophils Absolute Auto 0.1 0.0 - 0.2 X10*3/uL [facility] NRBC Abs Auto 0.000 0.0 - 0.012 X10*3/uL [facility] Blood Venous blood specimen / Unknown 03/07/2025 1:10 PM EDT 03/07/2025 2:10 PM EDT Meghan Portillo MD LAB BLOOD ORDERABLES Final Result Performing Organization Address City/[facility] Co de Phone Number [facility] [address] [place] [phone] * TSH W/Reflex to FT4 (12/08/2024 12:45 PM EDT) Pathologist [facility] TSH reflex Free T4 3.42 0.32 - 4.0 uIU/mL [facility] Blood Venous blood specimen / Unknown 12/08/2024 12:45 PM EDT 12/08/2024 2:14 PM EDT us Meghan Portillo MD LAB BLOOD ORDERABLES Final Result Performing Organization Address [facility] de Phone Number [facility] [address] [place] [phone] * (ABNORMAL) Comprehensive Metabolic Panel (12/08/2024 12:45 PM EDT) Sodium 140 135 - 145 mmol/L [facility] Potassium 3.8 3.3 - 5.1 mmol/L [facility] Chloride 102 96 - 108 mmol/L [facility] Carbon Dioxide 27 22 - 29 mmol/L [facility] Anion Gap 15 12 - 20 [facility] Urea Nitrogen (BUN) 17(H) 9 - 16 mg/dL [facility] Creatinine, Serum 1.00 0.5 - 1.4 mg/dL [facility] Estimated Glomerular Filt Rate 53 [facility] Comment:Chronic Kidney Disea se: Estimated GFR < 60 mL/min/1.99b3Iggwsr Kidney Disease: Estimated GFR < 15 mL/min/1.73m2 Glucose 152(H) 60 - 115 mg/dL [facility] Calcium 8.5 8.4 - 10.2 mg/dL [facility] Bilirubin, Total 0.2 0.0 - 1.0 mg/dL [facility] Aspartate Amino Transferase 31 5 - 31 U/L [facility] Alanine Aminotransferase 19 0 - 31 U/L [facility] Total Protein 6.9 6.5 - 8.0 g/dL [facility] Albumin Level 3.9 3.5 - 5.0 g/dL [facility] Alkaline Phosphatase 79 39 - 117 U/L [facility] Blood Venous blood specimen / Unknown 12/08/2024 12:45 PM EDT 12/08/2024 2:14 PM EDT us Meghan Portillo MD LAB BLOOD ORDERABLES Final Result [facility] [address] [place] [address] [phone] * (ABNORMAL) Lipid Panel, Standard (12/05/2023 2:45 PM EDT) Triglycerides 161(H) <150 mg/dL [facility] Comment:Desirable Triglyceri de: less than 150 mg/dLBorderline High Triglyceride 150-199 mg/dLHigh Triglyceride: 200-499 mg/dLVery High Triglyceride: greater than or equal to 5OO mg/dL Cholesterol 216(H) <200 mg/dL [facility] Comment:Desirable Cholestero l: less than 200 mg/dLBorderline High Cholesterol: 200-239 mg/dLHigh Cholesterol: greater than 239 mg/dL LDL Cholesterol Calculated 137(H) <100 mg/dL [facility] Comment:Desirable LDL: less than 100 mg/dLNear Optimal/Above Optimal LDL: 110- 129 mg/dLBorderline High LDL: 130-159 mg/dLHigh LDL: 160-189 mg/dLVery High LDL: greater than or equal to 190 mg/dL HDL Cholesterol 47 >40 mg/dL [facility] Comment:Desirable HDL: great er than 40 mg/dL Note: This HDL assay may give artificially low results in patients with liver disease. Blood Venous blood specimen / Unknown 12/05/2023 2:45 PM EDT 12/05/2023 6:02 PM EDT us Meghan Portillo MD LAB BLOOD ORDERABLES Final Result [facility] [address] [place] [address] [phone] from Last 3 Months or Most Recently Relevant to Health Maintenance Insurance [facility] CORRECTION OPTIONS (HMO D-SNP) D[facility]AL [facility] Care Teams Eeg Tech Relationship Specialty Start Date End Date Meghan Portillo MD [address] [place] [address] [place] [address] PCP - General Internal Medicine 06/14/13 Sarnaeamitchell 02/18/25
--- OUTSIDE RECORDS SUMMARY | 2025-03-07 14:29 | XMS_ITS | Encounter Summary ---
Author Organization [employer] Address [address] [facility] [address] [place] [address] Care Team Providers Care Wool Washer Feeder Name Role Phone Meghan Portillo MD Primary Care Provider [phone] Encounter Details Date Type Department Care Team (Late st Contact Info) Description 12/09/2023 Orders Only [facility] [address] [place], [place] [phone] Meghan Portillo MD [address] [place] [address] Social History Tobacco Use Types Packs/Day Years [...] AM EDT documented as of this encounter Progress Notes * Meghan Portillo MD - 12/09/2023 8:52 AM EDT Error. documented in this encounter Plan of Treatment Upcoming Encounters Date Type Department Care Team (Late st Contact Info) Description 03/08/2025 2:00 PM EDT Office Visit [facility] [address] [place] [address] Meghan Portillo MD [address] [place] [address] 04/12/2025 3:00 PM EDT Office Visit [facility] [address] [place] [address] Kali Kulkarni [address] [place] [address] documented as of this encounter Visit Diagnoses Not on filedocumented in this encounter Additional Health Concerns Assessment Noted Time PHQ-9 Depression Total Score: 7 12/05/19 24 2:33 PM EDT documented as of this encounter Care Teams Wool Washer Feeder Relationship Specialty Start Date End Date Meghan Portillo MD [address] [place] [phone] PCP - General Internal Medicine 06/14/13 [place] 06/30/24 02/23/25 Jon 02/18/25 documented as of this encounter
--- OUTSIDE RECORDS SUMMARY | 2025-03-07 14:29 | XMS_ITS | Encounter Summary ---
Author Organization [facility] Address [address] [place] [address] Care Team Providers Care P 3 Armament/Ordnance Ima Technician Name Role Phone Meghan Portillo MD Primary Care Provider [phone] [phone] Encounter Details Date Type Department Care Team (Late st Contact Info) Description 02/05/[address] [facility] - Main Lab [address] [facility] [place] [phone] Katelynn Bee MD [address] [facility] 1 [place], [place] [id number] Anemia, unspecified; Other disorders of electrolyte and [...] Associated Diagnosis Comments COMPLETE BLOOD COUNT Routine 02/07/2025 8:16 AM EDT Anemia, unspecified Other disorders of electrolyte and fluid balance, not elsewhere classified COMPREHENSIVE METABOLIC PANEL Routine 02/07/2025 8:16 AM EDT Anemia, unspecified Other disorders of electrolyte and fluid balance, not elsewhere classified documented in this encounter Results * (ABNORMAL) Comprehensive metabolic panel (02/07/2025 8:16 AM EDT) Sodium 138 133 - 145 mmol/L LAB CHEMISTRY METHOD 02/07/2025 12:19 PM [facility] Potassium 4.4 3.5 - 5.5 mmol/L LAB CHEMISTRY METHOD 02/07/2025 12:19 PM [facility] Chloride 106 96 - 110 mmol/L LAB CHEMISTRY METHOD 02/07/2025 12:19 PM [facility] CO2 23 21 - 32 mmol/L LAB CHEMISTRY METHOD 02/07/2025 12:19 PM [facility] Anion Gap 9 3 - 11 LAB CHEMISTRY METHOD 02/07/2025 12:19 PM [facility] Glucose 147(H) 70 - 100 mg/dL LAB CHEMISTRY METHOD 02/07/2025 12:19 PM [facility] BUN 14 5 - 25 mg/dL LAB CHEMISTRY METHOD 02/07/2025 12:19 PM [facility] Creatinine 1.07 0.50 - 1.10 mg/dL LAB CHEMISTRY METHOD 02/07/2025 12:19 PM [facility] eGFR 52(L) >=60 mL/min/1. 73m2 LAB CHEMISTRY METHOD 02/07/2025 12:19 PM [facility] Comment:Calculation based on the Chronic Kidney Disease Epidemiology Collaboration (CKD-EPI) equation refit without adjustment for race. BUN/Creatinine Ratio 13.1 LAB CHEMISTRY METHOD 02/07/2025 12:19 PM [facility] Calcium 8.3(L) 8.5 - 10.5 mg/dL LAB CHEMISTRY METHOD 02/07/2025 12:19 PM [facility] AST (SGOT) 24 10 - 42 unit/L LAB CHEMISTRY METHOD 02/07/2025 12:19 PM [facility] ALT (SGPT) 25 10 - 60 unit/L LAB CHEMISTRY METHOD 02/07/2025 12:19 PM EDT [facility] Alkaline Phosphatase 64 42 - 121 unit/L LAB CHEMISTRY METHOD 02/07/2025 12:19 PM [facility] Total Protein 6.4 6.0 - 8.0 g/dL LAB CHEMISTRY METHOD 02/07/2025 12:19 PM [facility] Albumin 3.3 3.2 - 5.0 g/dL LAB CHEMISTRY METHOD 02/07/2025 12:19 PM [facility] Total Bilirubin 0.4 0.0 - 1.4 mg/dL LAB CHEMISTRY METHOD 02/07/2025 12:19 PM [facility] Blood Venous blood specimen / Unknown Venipuncture / Unknown 02/07/2025 8:16 AM EDT 02/07/2025 10:55 AM EDT us Katelynn Bee MD LAB BLOOD ORDERABLES Fin al Result [facility] [address] [place] [address], * (ABNORMAL) Complete blood count (02/07/2025 8:16 AM EDT) WBC 7.2 4.8 - 10.8 K/mcL LAB HEMETOLOGY METHOD 02/07/2025 12:09 PM T [facility] RBC 4.30 3.80 - 4.80 M/mcL LAB HEMETOLOGY METHOD 02/07/2025 12:09 PM [facility] Hemoglobin 12.1 11.5 - 16.0 g/dL LAB HEMETOLOGY METHOD 02/07/2025 12:09 PM [facility] Hematocrit 39.5 35.0 - 47.0 % LAB HEMETOLOGY METHOD 02/07/2025 12:09 PM [facility] MCV 92.3 79.0 - 98.0 FL LAB HEMETOLOGY METHOD 02/07/2025 12:09 PM [facility] MCH 28.3 27.0 - 32.0 pcg LAB HEMETOLOGY METHOD 02/07/2025 12:09 PM [facility] MCHC 30.6(L) 32.0 - 37.0 g/dL LAB HEMETOLOGY METHOD 02/07/2025 12:09 PM [facility] RDW 15.4(H) 11.0 - 15.0 % LAB HEMETOLOGY METHOD 02/07/2025 12:09 PM [facility] Platelets 275 130 - 400 K/mcL LAB HEMETOLOGY METHOD 02/07/2025 12:09 PM [facility] MPV 10.8 7.0 - 11.0 FL LAB HEMETOLOGY METHOD 02/07/2025 12:09 PM [facility] NRBC 0.0 <1.0 % LAB HEMETOLOGY METHOD 02/07/2025 12:09 PM [facility] NRBC Absolute 0.00 <0.10 K/mcL LAB HEMETOLOGY METHOD 02/07/2025 12:09 PM [facility] Blood Venous blood specimen / Unknown Venipuncture / Unknown 02/07/2025 8:16 AM EDT 02/07/2025 10:55 AM EDT us Katelynn Bee MD LAB BLOOD ORDERABLES Fin al Result [facility] [address] [place] [address], documented in this encounter Visit Diagnoses Diagnosis Anemia, unspecified Other disorders of electrolyte and fluid balance, not elsewhere classified documented in this encounter Additional Health Concerns Infection Onset Date Last Indicated Resolved Time C. difficile Rule-Out 02/05/2025 02/04/20252024 11:09 AM EDT documented as of this encounter Care Teams P 3 Armament/Ordnance Ima Technician Relationship Specialty Start Date End Date Meghan Portillo MD [address] [place] [address] PCP - General 12/10/23 documented as of this encounter
--- OUTSIDE RECORDS SUMMARY | 2025-03-07 14:29 | XMS_ITS | Encounter Summary ---
Author Organization [employer] Address [address] [facility] [address] [place] [address] Care Team Providers Care Car Icer Name Role Phone Meghan Portillo MD Primary Care Provider [phone] Reason for Visit * Reason Onset Date Comments Appointment 10/16/2022 Ginny Tovar 1940 Patient called in stating that her appt was can for 10/16 with grabiel stockton for extraction please reach out to patient to rs Encounter Details Date Type Department Care Team ([facility] st Contact Info) Description 10/16/2022 Telephone [facility] [address] [place] [address] Grabiel Stockton, DMD [address] [place], [place] [phone] Appointment (Ginny Tovar 1940 Patient called in stating that her appt was can for 10/16 with grabiel stockton for extraction please reach out to patient to rs ) Social History Tobacco Use Types Packs/Day Years [...] Orientation Straight 12/09/2023 11 :26 AM EDT COVID-19 Exposure Response Date Recorded In the last 10 days, have yo u been in contact with someone who was confirmed or suspected to have Coronavirus/COVID-19? No / Unsure 09/30/2022 1:40 PM EDT documented as of this encounter Miscellaneous Notes * Telephone Encounter - Ingrid Bell - 10/16/2022 8:13 AM EDT Ginny Tovar 1940 Patient called in stating that her appt was can for 10/16 with grabiel stockton for extraction and also stated that she's having pain please reach out to patient to rs documented in this encounter Plan of Treatment Upcoming Encounters Date Type Department Care Team (Late st Contact Info) Description 03/08/2025 2:00 PM EDT Office Visit [facility] [address] [place] [address] Meghan Portillo MD [address] [place] [address] 04/12/2025 3:00 PM EDT Office Visit [facility] [address] [place] [address] Kali Kulkarni [address] [place] [address] documented as of this encounter Visit Diagnoses Not on filedocumented in this encounter Care Teams Car Icer Relationship Specialty Start Date End Date Meghan Portillo MD [address] [place] [address] PCP - General Internal Medicine 06/14/13 MoSo 06/30/24 02/23/25 Jon 02/18/25 documented as of this encounter
--- OUTSIDE RECORDS SUMMARY | 2025-03-07 14:29 | XMS_ITS | Clinical Summary ---
Author Organization [address] [facility] Address [address] [place] [address] Phone Care Team Providers Care Broach Trouble Shooter Name Role Phone Meghan Portillo MD Primary Care Provider [phone] [phone] Allergies Active Allergy Reactions Criticality Noted Date Comments Levofloxacin 05/21/2005 Medications albuterol HFA (ProAir HFA) 90 mcg/actuation inhaler Inhale 2 puffs by mouth every 4 (four) hours if needed (ASTHMA). 8 Active NIFEdipine XL (PROCARDIA XL) 30 mg 24 hr tablet Take 1 tablet (30 mg total) by mouth 2 (two) times a day. 8 Active oxycodone HCl/acetaminoph en (OXYCODONE-ACET AMINOPHEN ORAL) 1-2 tablets. Every 6-8 hours as needed Active beclomethasone (Beconase AQ) 42 mcg (0.042 %) nasal spray Administer into each nostril 1 (one) time each day. 2 puffs 8 Active celecoxib (CeleBREX) 200 mg capsule Take 1 capsule (200 mg total) by mouth 2 (two) times a day. 9 Active esomeprazole (NexIUM) [address] capsule Take 1 capsule (40 mg total) by mouth 1 (one) time each day. 8 Active fluticasone propionate (FLONASE) 50 mcg/actuation nasal spray Administer 1 spray into each nostril 1 (one) time each day. 9 Active furosemide (Lasix) 40 mg tablet Take 1 tablet (40 mg total) by mouth 1 (one) time each day. for edema 8 Active ipratropium HFA (Atrovent HFA) 17 mcg/actuation inhaler Inhale 2 puffs by mouth 2 (two) times a day. 8 Active lovastatin (MEVACOR) 20 mg tablet Take 1 tablet (20 mg total) by mouth 1 (one) time each day. 8 Active pregabalin (Lyrica) 75 mg capsule Take 1 capsule (75 mg total) by mouth 2 (two) times a day. Max Daily Amount: 150 mg 8 Active sertraline (Zoloft) 50 mg tablet Take 1 tablet (50 mg total) by mouth 3 (three) times a day. 9 Active tolterodine LA (Detrol LA) 2 mg 24 hr capsule Take 1 capsule (2 mg total) by mouth 2 (two) times a day. 8 Active traMADoL (Ultram) 50 mg tablet 1 TABLET EVERY 4 TO 6 HOURS NEEDED 8 Active Active Problems Problem Noted Date Diagnosed Date GERD (gastroesophageal reflux disease) 8 Depressive disorder 11/18/2005 Mixed hyperlipidemia 08/02/2005 Overview (04/19/2024): Refusing to take meds for ?? Benign essential hypertension 08/01/2005 Fibromyalgia 05/21/2005 Overview (04/19/2024): IMO update Asthma 05/21/2005 Osteoarthritis of shoulder 05/21/2005 Overview (04/19/2024): IMO update Encounters Date Type Department Care Team Description 02/18/2025 Lab Requisition [facility] - Main Lab [address] [facility] [place] [address] Katelynn Bee MD Anemia, unspecified; Other disorders of electrolyte and fluid balance, not elsewhere classified 02/14/[address] [address] Faustino KernisBLANCA 02/13/2025 Lab Requisition [facility] Lab [address] [facility] [place] [phone] Katelynn Bee MD Anemia, unspecified; Other disorders of electrolyte and fluid balance, not elsewhere classified 02/05/2025 Lab Requisition [facility] Lab [address] [facility] [place] [phone] Katelynn Bee MD Anemia, unspecified; Other disorders of electrolyte and fluid balance, not elsewhere classified 02/05/2025 Lab Requisition [facility] Lab [address] [facility] [place] [phone] Katelynn Bee MD Encounter for screening for infectious and parasitic diseases, unspecified 01/30/2025 Lab Requisition [facility] Lab [address] [facility] [place] [phone] Katelynn Bee MD Anemia, unspecified; Other disorders of electrolyte and fluid balance, not elsewhere classified 01/26/2025 Lab Requisition [facility] Lab [address] [facility] [place] [phone] Katelynn Bee MD Anemia, unspecified; Essential (primary) hypertension; Other disorders of electrolyte and fluid balance, not elsewhere classified from Last 3 Months Social History Tobacco Use Types Packs/Day Years Used Date Smoking Tobacco: Never Assessed Comments Unknown Sex and Gender Information Value Date Recorded Sex Assigned at Not on file Legal Sex Female 5:26 AM EST Gender Identity Not on file Sexual Orientation Not on file Last Filed Vital Signs Vital Sign Reading Time Taken Comments Blood Pressure - - Pulse - - Temperature - - Respiratory Rate - - Oxygen Saturation - - Inhaled Oxygen Concentration - - Weight 129 kg (284 lb) 02/25/2024 2:35 PM EDT Height 160 cm (5' 3 ) 02/25/2024 2:35 PM EDT Body Mass Index 50.31 02/25/2024 2:35 PM EDT Plan of Treatment Health Maintenance Due Date Last Done Comments Zoster Vaccines (2 of 3) 08/16/2013 06/21/2013 RSV Immunization Adult Patients (1 - 1-dose 75+ series) 2017 Falls Risk Assessment 04/19/2024 Medicare Annual Wellness Visit 04/19/2024 Osteoporosis Screening (Bone Density Screening) 04/19/2024 Social Influencers of Health Screening 04/19/2024 Depression Screening 07/14/2024 COVID-19 Vaccine ( season) 2024 07/02/2024, 12/05/2023, 05/18/2021, Additional history exists Influenza Vaccine (#1) 2025 , 05/28/2022, 05/18/2021, Additional history exists Hypertension/CHF/CAD Annual BMP Blood Test 02/14/2026 02/14/2025, 02/07/2025, 01/31/2025, Additional history exists Cholesterol Screening (Lipid Panel) 12/04/2028 12/05/2023, 10/15/2007 DTaP,Tdap,and Td Vaccines (2 - Td or Tdap) 12/04/2033 12/05/2023 Pneumococcal Vaccine: 50+ Years Completed 12/05/2023, 03/03/2015 HIB Vaccines Aged Out No longer [...] on patient's age to complete this topic MMR Vaccines Aged Out No longer eligi ble based on patient's age to complete this topic Meningococcal ACWY Vaccine Aged Out N o longer eligible based on patient's age to complete this topic Meningococcal B Vaccine Aged Out No l onger eligible based on patient's age to complete this topic RSV Immunization Patients Under 20 months Aged Out No longer eligible based on patient's age to complete this topic Varicella Vaccines Aged Out No longer eligible based on patient's age to complete this topic Procedures Procedure Name Priority Date/Time Associated Diagnosis Comments COMPREHENSIVE METABOLIC PANEL Routine 02/14/2025 5:08 AM EDT Anemia, unspecified Other disorders of electrolyte and fluid balance, not elsewhere classified COMPLETE BLOOD COUNT Routine 02/14/2025 5:08 AM EDT Anemia, unspecified Other disorders of electrolyte and fluid balance, not elsewhere classified COMPREHENSIVE METABOLIC PANEL Routine 02/07/2025 8:16 AM EDT Anemia, unspecified Other disorders of electrolyte and fluid balance, not elsewhere classified COMPLETE BLOOD COUNT Routine 02/07/2025 8:16 AM EDT Anemia, unspecified Other disorders of electrolyte and fluid balance, not elsewhere classified COMPREHENSIVE METABOLIC PANEL Routine 01/31/2025 7:50 AM EDT Anemia, unspecified Other disorders of electrolyte and fluid balance, not elsewhere classified COMPLETE BLOOD COUNT Routine 01/31/2025 7:50 AM EDT Anemia, unspecified Other disorders of electrolyte and fluid balance, not elsewhere classified COMPREHENSIVE METABOLIC PANEL Routine 01/26/2025 5:07 AM EDT Anemia, unspecified Essential (primary) hypertension Other disorders of electrolyte and fluid balance, not elsewhere classified COMPLETE BLOOD COUNT Routine 01/26/2025 5:07 AM EDT Anemia, unspecified Essential (primary) hypertension Other disorders of electrolyte and fluid balance, not elsewhere classified LIPID PANEL Routine 10/15/2007 from Last 3 Months or Most Recently Relevant to Health Maintenance Results * (ABNORMAL) Complete blood count (02/14/2025 5:08 AM EDT) Only the most recent of4 resultswithin the time period is included. [facility] Signature WBC 7.7 4.8 - 10.8 K/mcL LAB HEMETOLOGY METHOD 02/14/2025 11:33 AM EDT [facility] RBC 3.90 3.80 - 4.80 M/mcL LAB HEMETOLOGY METHOD 02/14/2025 11:33 AM [facility] Hemoglobin 11.0(L) 11.5 - 16.0 g/dL LAB HEMETOLOGY METHOD 02/14/2025 11:33 AM [facility] Hematocrit 36.5 35.0 - 47.0 % LAB HEMETOLOGY METHOD 02/14/2025 11:33 AM [facility] MCV 92.6 79.0 - 98.0 FL LAB HEMETOLOGY METHOD 02/14/2025 11:33 AM [facility] MCH 27.9 27.0 - 32.0 pcg LAB HEMETOLOGY METHOD 02/14/2025 11:33 AM [facility] MCHC 30.1(L) 32.0 - 37.0 g/dL LAB HEMETOLOGY METHOD 02/14/2025 11:33 AM [facility] RDW 15.3(H) 11.0 - 15.0 % LAB HEMETOLOGY METHOD 02/14/2025 11:33 AM [facility] Platelets 218 130 - 400 K/mcL LAB HEMETOLOGY METHOD 02/14/2025 11:33 AM [facility] MPV 10.9 7.0 - 11.0 FL LAB HEMETOLOGY METHOD 02/14/2025 11:33 AM [facility] NRBC 0.0 <1.0 % LAB HEMETOLOGY METHOD 02/14/2025 11:33 AM [facility] NRBC Absolute 0.00 <0.10 K/mcL LAB HEMETOLOGY METHOD 02/14/2025 11:33 AM [facility] Blood Venous blood specimen / Unknown Venipuncture / Unknown 02/14/2025 5:08 AM EDT 02/14/2025 11:08 AM EDT Katelynn Bee MD LAB BLOOD ORDERABLES Fin al Result [facility] [address] [place] [address], * (ABNORMAL) Comprehensive metabolic panel (02/14/2025 5:08 AM EDT) Only the most recent of4 resultswithin the time period is included. Sodium 140 133 - 145 mmol/L LAB CHEMISTRY METHOD 02/14/2025 12:22 PM [facility] Potassium 4.1 3.5 - 5.5 mmol/L LAB CHEMISTRY METHOD 02/14/2025 12:22 PM [facility] Chloride 104 96 - 110 mmol/L LAB CHEMISTRY METHOD 02/14/2025 12:22 PM [facility] CO2 27 21 - 32 mmol/L LAB CHEMISTRY METHOD 02/14/2025 12:22 PM [facility] Anion Gap 9 3 - 11 LAB CHEMISTRY METHOD 02/14/2025 12:22 PM [facility] Glucose 105(H) 70 - 100 mg/dL LAB CHEMISTRY METHOD 02/14/2025 12:22 PM [facility] BUN 20 5 - 25 mg/dL LAB CHEMISTRY METHOD 02/14/2025 12:22 PM [facility] Creatinine 1.12(H) 0.50 - 1.10 mg/dL LAB CHEMISTRY METHOD 02/14/2025 12:22 PM [facility] eGFR 49(L) >=60 mL/min/1. 73m2 LAB CHEMISTRY METHOD 02/14/2025 12:22 PM [facility] Comment:Calculation based on the Chronic Kidney Disease Epidemiology Collaboration (CKD-EPI) equation refit without adjustment for race. BUN/Creatinine Ratio 17.9 LAB CHEMISTRY METHOD 02/14/2025 12:22 PM [facility] Calcium 7.4(L) 8.5 - 10.5 mg/dL LAB CHEMISTRY METHOD 02/14/2025 12:22 PM [facility] AST (SGOT) 34 10 - 42 unit/L LAB CHEMISTRY METHOD 02/14/2025 12:22 PM [facility] ALT (SGPT) 24 10 - 60 unit/L LAB CHEMISTRY METHOD 02/14/2025 12:22 PM [facility] Alkaline Phosphatase 63 42 - 121 unit/L LAB CHEMISTRY METHOD 02/14/2025 12:22 PM [facility] Total Protein 6.2 6.0 - 8.0 g/dL LAB CHEMISTRY METHOD 02/14/2025 12:22 PM [facility] Albumin 3.3 3.2 - 5.0 g/dL LAB CHEMISTRY METHOD 02/14/2025 12:22 PM [facility] Total Bilirubin 0.4 0.0 - 1.4 mg/dL LAB CHEMISTRY METHOD 02/14/2025 12:22 PM [facility] Blood Venous blood specimen / Unknown Venipuncture / Unknown 02/14/2025 5:08 AM EDT 02/14/2025 11:08 AM EDT Katelynn Bee MD LAB BLOOD ORDERABLES Javier herzog Result [facility] [address] [place] [address], * (ABNORMAL) Lipid panel (10/15/2007) LDL/HDL Ratio 5(A) 0 - 4 Triglycerides 171(A) 0 - 150 mg/dL Cholesterol 259(A) 0 - 200 mg/dL HDL 50 >=40 mg/dL LDL Cholesterol 175(A) 0 - 100 mg/dL Blood Venous blood specimen / Unknown Historical Provider LAB BLOOD ORDERABLES Stephanie l Result from Last 3 Months or Most Recently Relevant to Health Maintenance Insurance [employer] MED[employer] Member Subscriber Plan / Payer (Ef fective 2013-Present) Name:Guy Ginny Relation to Subscriber:Self Name:Guy Ginny Payer ID:[id number] Group ID:[id number] Type:Not on file Address: [place] [address] [address] [id number] Care Teams Broach Trouble Shooter Relationship Specialty Start Date End Date Meghan Portillo MD [address] [place] [address] PCP - General 12/10/23
--- OUTSIDE RECORDS SUMMARY | 2025-03-07 14:29 | XMS_ITS | Encounter Summary ---
Author Organization [facility] Address [address] [place] [address] Care Team Providers Care Strategic Debriefing Specialist Name Role Phone Meghan Portillo MD Primary Care Provider [phone] [phone] Encounter Details Date Type Department Care Team (Late st Contact Info) Description 02/18/2025 Lab Requisition [facility] - Main Lab [address] [facility] [place] [id number] Katelynn Bee MD [address] [address] Anemia, unspecified; Other disorders of electrolyte and [...] on file documented as of this encounter Visit Diagnoses Diagnosis Anemia, unspecified Other disorders of electrolyte and fluid balance, not elsewhere classified documented in this encounter Care Teams Strategic Debriefing Specialist Relationship Specialty Start Date End Date Meghan Portillo MD [address] [place] [address] PCP - General 12/10/23 documented as of this encounter
--- OUTSIDE RECORDS SUMMARY | 2025-03-07 14:29 | XMS_ITS | Encounter Summary ---
Author Organization [facility] Address [address] [place] [address] Care Team Providers Care Support Team Assoc Name Role Phone Meghan Portillo MD Primary Care Provider [phone] Encounter Details Date Type Department Care Team (Late st Contact Info) Description 02/05/2025 Lab Requisition [facility] - Main Lab [address] [facility] [place] [address] Katelynn Bee MD [address] [address] Encounter for screening for infectious and parasitic diseases, unspecified Social History Tobacco Use Types Packs/Day Years Used Date Smoking Tobacco: Never Assessed Comments Unknown Sex and Gender Information Value Date Recorded Sex Assigned at Not on file Legal Sex Female 5:26 AM EST Gender Identity Not on file Sexual Orientation Not on file documented as of this encounter Plan of Treatment Not on file documented as of this encounter Visit Diagnoses Diagnosis Encounter for screening for infectious and parasitic diseases, unspecified documented in this encounter Additional Health Concerns Infection Onset Date Last Indicated Resolved Time C. difficile Rule-Out 02/05/2025 02/04/20252024 11:09 AM EDT documented as of this encounter Care Teams Support Team Assoc Relationship Specialty Start Date End Date Meghan Portillo MD [address] [place] [address] PCP - General 12/10/23 documented as of this encounter
--- OUTSIDE RECORDS SUMMARY | 2025-03-07 14:29 | XMS_ITS | Encounter Summary ---
Author Organization [employer] Address [address] [facility] 7 [place] [address] Care Team Providers Care Slime Plant Operator Helper Name Role Phone Meghan Portillo MD Primary Care Provider +1- [phone] Reason for Visit * Reason Onset Date Comments requesting a call back 08/14/2022 Encounter Details Date Type Department Care Team ([facility] st Contact Info) Description 08/14/2022 Telephone [facility] MED & PEDS [address] [place], [place] [phone] Meghan Portillo MD [address] [place], [place] [phone] requesting a call back Social History Tobacco Use Types Packs/Day Years Used Date Smoking Tobacco: Never Assessed Comments Unknown Sex and Gender Information Value Date Recorded Sex Assigned at Female 05/13/2022 10:25 AM EDT Legal Sex Female 10:25 AM EDT Gender Identity Female 12/09/2023 11:26 AM EDT Sexual Orientation Straight 12/09/2023 11 :26 AM EDT documented as of this encounter Miscellaneous Notes * Telephone Encounter - Jana Ching LPN - 08/21/2022 3:32 PM EST Script generated for DME: recliner and diapers sent to [facility] * Telephone Encounter - Samira Laws RN - 08/14/2022 2:16 PM EST TC to pt at [phone]. Pt requesting a lift chair d/t her's being broken. Pt requesting diapers (she uses 5 diapers per day), also requesting OVERNIGHT diapers, and Pull-ups. Pt requesting refill on Neurontin 400mg and NOT Gabapentin as pt states the Gabapentin does not help w/ her pain. RN states it its the same drug, pt persistent on needing Neurontin as it helps best with her arthritic pain. Pt requesting her Celebrex script to state that she takes in twice a day, as that's what the RX has always stated. The RX for Celebrex 200mg sent on 08/05/22 is for once a day. Informed pt RN would send message to PCP. Appt made for pt on 09/05/22 at 2:30pm with PCP. Pt aware of appointment. Pt to F/U PRN. * Telephone Encounter - Susan Calvin - 08/14/2022 12:43 PM EST Tc from pt requesting to speak with a nurse . Did not give much information . documented in this encounter Plan of Treatment Upcoming Encounters Date Type Department Care Team (Late st Contact Info) Description 03/08/2025 2:00 PM EDT Office Visit [facility] MED & PEDS [address] [place] [address] Meghan Portillo MD [address] [place] [address] 04/12/2025 3:00 PM EDT Office Visit [facility] ADULT DENTAL [address] [place] [address] Kali Kulkarni [address] [place] [address] documented as of this encounter Visit Diagnoses Diagnosis Primary osteoarthritis of knee, unspecified laterality documented in this encounter Care Teams Slime Plant Operator Helper Relationship Specialty Start Date End Date Meghan Portillo MD [address] [place] [address] PCP - General Internal Medicine 06/14/13 [facility] 06/30/24 02/23/25 Jon 02/18/25 documented as of this encounter
--- OUTSIDE RECORDS SUMMARY | 2025-03-07 14:29 | XMS_ITS | Encounter Summary ---
Author Organization [facility] Address [address] [place] [address] Care Team Providers Care Plate Shear Operator Name Role Phone Meghan Portillo MD Primary Care Provider [phone] [phone] Encounter Details Date Type Department Care Team (Late st Contact Info) Description 02/13/[address] [facility] - Main Lab [address] [facility] [place] [phone] Katelynn Bee MD [address] [facility] [address] [place], [place] [phone] Anemia, unspecified; Other disorders of electrolyte and [...] Associated Diagnosis Comments COMPLETE BLOOD COUNT Routine 02/14/2025 5:08 AM EDT Anemia, unspecified Other disorders of electrolyte and fluid balance, not elsewhere classified COMPREHENSIVE METABOLIC PANEL Routine 02/14/2025 5:08 AM EDT Anemia, unspecified Other disorders of electrolyte and fluid balance, not elsewhere classified documented in this encounter Results * (ABNORMAL) Comprehensive metabolic panel (02/14/2025 5:08 AM EDT) Sodium 140 133 - 145 mmol/L LAB CHEMISTRY METHOD 02/14/2025 12:22 PM [facility] Potassium 4.1 3.5 - 5.5 mmol/L LAB CHEMISTRY METHOD 02/14/2025 12:22 PM [facility] Chloride 104 96 - 110 mmol/L LAB CHEMISTRY METHOD 02/14/2025 12:22 PM [facility] CO2 27 21 - 32 mmol/L LAB CHEMISTRY METHOD 02/14/2025 12:22 PM [facility] Anion Gap 9 3 - 11 LAB CHEMISTRY METHOD 02/14/2025 12:22 PM [facility] Glucose 105(H) 70 - 100 mg/dL LAB CHEMISTRY METHOD 02/14/2025 12:22 PM [facility] BUN 20 5 - 25 mg/dL LAB CHEMISTRY METHOD 02/14/2025 12:22 PM [facility] Creatinine 1.12(H) 0.50 - 1.10 mg/dL LAB CHEMISTRY METHOD 02/14/2025 12:22 PM [facility] eGFR 49(L) >=60 mL/min/1. 73m2 LAB CHEMISTRY METHOD 02/14/2025 12:22 PM [facility] Comment:Calculation based on the Chronic Kidney Disease Epidemiology Collaboration (CKD-EPI) equation refit without adjustment for race. BUN/Creatinine Ratio 17.9 LAB CHEMISTRY METHOD 02/14/2025 12:22 PM [facility] Calcium 7.4(L) 8.5 - 10.5 mg/dL LAB CHEMISTRY METHOD 02/14/2025 12:22 PM [facility] AST (SGOT) 34 10 - 42 unit/L LAB CHEMISTRY METHOD 02/14/2025 12:22 PM [facility] ALT (SGPT) 24 10 - 60 unit/L LAB CHEMISTRY METHOD 02/14/2025 12:22 PM [facility] Alkaline Phosphatase 63 42 - 121 unit/L LAB CHEMISTRY METHOD 02/14/2025 12:22 PM [facility] Total Protein 6.2 6.0 - 8.0 g/dL LAB CHEMISTRY METHOD 02/14/2025 12:22 PM [facility] Albumin 3.3 3.2 - 5.0 g/dL LAB CHEMISTRY METHOD 02/14/2025 12:22 PM [facility] Total Bilirubin 0.4 0.0 - 1.4 mg/dL LAB CHEMISTRY METHOD 02/14/2025 12:22 PM [facility] Blood Venous blood specimen / Unknown Venipuncture / Unknown 02/14/2025 5:08 AM EDT 02/14/2025 11:08 AM EDT us Katelynn Bee MD LAB BLOOD ORDERABLES Fin al Result [facility] [address] [place] [address], * (ABNORMAL) Complete blood count (02/14/2025 5:08 AM EDT) WBC 7.7 4.8 - 10.8 K/mcL LAB HEMETOLOGY METHOD 02/14/2025 11:33 AM T [facility] RBC 3.90 3.80 - 4.80 M/mcL LAB HEMETOLOGY METHOD 02/14/2025 11:33 AM [facility] Hemoglobin 11.0(L) 11.5 - 16.0 g/dL LAB HEMETOLOGY METHOD 02/14/2025 11:33 AM [facility] Hematocrit 36.5 35.0 - 47.0 % LAB HEMETOLOGY METHOD 02/14/2025 11:33 AM EDT [facility] MCV 92.6 79.0 - 98.0 FL LAB HEMETOLOGY METHOD 02/14/2025 11:33 AM EDT [facility] MCH 27.9 27.0 - 32.0 pcg LAB HEMETOLOGY METHOD 02/14/2025 11:33 AM EDT [facility] MCHC 30.1(L) 32.0 - 37.0 g/dL LAB HEMETOLOGY METHOD 02/14/2025 11:33 AM EDT [facility] RDW 15.3(H) 11.0 - 15.0 % LAB HEMETOLOGY METHOD 02/14/2025 11:33 AM EDT [facility] Platelets 218 130 - 400 K/mcL LAB HEMETOLOGY METHOD 02/14/2025 11:33 AM EDT [facility] MPV 10.9 7.0 - 11.0 FL LAB HEMETOLOGY METHOD 02/14/2025 11:33 AM EDT [facility] NRBC 0.0 <1.0 % LAB HEMETOLOGY METHOD 02/14/2025 11:33 AM EDT [facility] NRBC Absolute 0.00 <0.10 K/mcL LAB HEMETOLOGY METHOD 02/14/2025 11:33 AM [facility] Blood Venous blood specimen / Unknown Venipuncture / Unknown 02/14/2025 5:08 AM EDT 02/14/2025 11:08 AM EDT us Katelynn Bee MD LAB BLOOD ORDERABLES Fin al Result [facility] [address] [place] [address], documented in this encounter Visit Diagnoses Diagnosis Anemia, unspecified Other disorders of electrolyte and fluid balance, not elsewhere classified documented in this encounter Care Teams Plate Shear Operator Relationship Specialty Start Date End Date Meghan Portillo MD [address] [place], [place] PCP - General 12/10/23 documented as of this encounter
[2025-03-07 14:40] LABS: Anion Gap 17 (12-20); Blood Urea Nitrogen 8 mg/dL (9-16); Calcium 7.3 mg/dL (8.4-10.2); Carbon Dioxide 26 mmol/L (22-29); Chloride 101 mmol/L (96-108); Estimated Glomerular Filt Rate > 60; Potassium 3.7 mmol/L (3.3-5.1); Sodium 140 mmol/L (135-145)
[2025-03-08 08:53] LABS: E. coli EAEC Not Detected (Not Detect.); E. coli EPEC Not Detected (Not Detect.); E. coli ETEC Not Detected (Not Detect.); E. coli STEC Not Detected (Not Detect.); Shigella sp./EIEC Not Detected (Not Detect.)
== END 2025-03-07 13:09 | disposition home or self-care (01) ==
LOC: HO.CHCLDS 13:08
PROVIDERS: Visit Provider Internal Medicine
DX: K59.1 Functional diarrhea (principal); K21.9 Gastro-esophageal reflux disease without esophagitis
CPT/HCPCS: 36415; 80048; 85025; 87338; 87507

== ENCOUNTER 2025-05-24 15:45 | Outpatient (REF) | payer OTHER, SELFPAY ==
--- OUTSIDE RECORDS SUMMARY | 2025-05-24 15:15 | XMS_ITS | Encounter Summary ---
Author Organization [employer] Address [address] [place] [address] 7[address] [place] [address] Care Team Providers Care Slasher Hand Name Role Phone Meghan Portillo MD Primary Care Provider [phone]- [phone] Reason for Referral * Consultation (Routine) - Pending Review Specialty Diagnoses / Procedures Referred By Sobia carranza Referred To Contact Gastroenterology Diagnoses Gastroesophageal reflux disease without esophagitis Meghan Portillo MD [address] [place] [address] Phone: tel: fax: Referral ID Status Reason Start Date Expiration Date Visits Requested Visits Authorized [id number] Pending Review Specialty Services Required 5 05/24/2026 1 1 Reason for Visit * Reason Comments Follow-up Encounter Details Date Type Department Care Team (Latest Contact Info) Description 05/24/2025 3:15 PM EST Office Visit [facility] MED [facility] P[facility] [address] [place], [place] [phone] Meghan Portillo MD [address] [place], [place] [phone] Gastroesophageal reflux disease without esophagitis (Primary Dx); Primary hypertension; Longstanding persistent atrial fibrillation (CMS/HCC) (HCC); Functional diarrhea Social History Tobacco Use Types Packs/Day Years [...] AM EDT documented as of this encounter Last Filed Vital Signs Vital Sign Reading Time Taken Comments Blood Pressure 145/77 05/24/2025 3:05 PM EST Pulse 87 05/24/2025 3:05 PM EST Temperature - - Respiratory Rate 20 05/24/2025 3:05 PM EST Oxygen Saturation 95% 05/24/2025 3:05 PM EST Inhaled Oxygen Concentration - - Weight 121 kg (266 lb) 05/24/2025 3:05 PM EST Height 161.3 cm (5' 3.5 ) 05/24/2025 3:05 PM EST Body Mass Index 46.38 05/24/2025 3:05 PM EST documented in this encounter Progress Notes * Santa Lanier NP - 05/24/2025 3:15 PM EST * Meghan Portillo MD - 05/24/2025 3:15 PM EST SUBJECTIVE Ginny Tovar is a 85 y.o. female who presents for Follow-up. Ginny Tovar, 85-year-old female - Chronic stomach acid reflux, described as bad - Frequent burping and liquid regurgitation after eating - Poor appetite, feels hungry but unable to eat more than a few bites - Pantoprazole previously used, reported as ineffective - History of bruising, worsened with blood thinner use - Chronic cough, attributed to lisinopril, resolved after discontinuation two weeks ago - History of right leg and foot swelling, resolved after one to two months - Irregular heart rate and heart failure, taking Eliquis - Diarrhea, described as liquid, persistent - History of cancer 20 years ago - Stool workup previously performed, reported as negative - Antibiotic use in hospital and after dental procedures - Difficulty with teeth, multiple dental procedures, teeth breaking and falling out - Allergic to milk - Unable to tolerate coffee, causes shaking - Reports gas and bloating - Expresses fear related to heart condition and episodes of chest tightness - Hospitalization in February 2025, ambulance called, felt weak and hungry during stay - Previous alf stay Problem List[1] Allergies[2] Medications Ordered Prior to Encounter[3] Review of Systems Constitutional: Negative for appetite change, chills and diaphoresis. Respiratory: Negative for cough, choking and chest tightness. Cardiovascular: Negative for palpitations and leg swelling. Gastrointestinal: Negative for anal bleeding, blood in stool and constipation. Musculoskeletal: Negative for gait problem, joint swelling and myalgias. OBJECTIVE Vitals: 05/24/25 1505 BP: (!) 145/77 BP Location: Left arm Patient Position: Sitting BP Cuff Size: Adult long Pulse: 87 Resp: 20 SpO2: 95% Weight: 266 lb (121 kg) Height: 5' 3.5 (1.613 m) Physical Exam Constitutional: General: She is not in acute distress. Appearance: Normal appearance. She is not ill-appearing, toxic-appearing or diaphoretic. Cardiovascular: Rate and Rhythm: Normal rate. Rhythm irregular. Heart sounds: No murmur heard. Pulmonary: Effort: Pulmonary effort is normal. No respiratory distress. Breath sounds: No wheezing. Neurological: General: No focal deficit present. Mental Status: She is alert. Assessment/Plan Assessment/Plan Diagnoses and all orders for this visit: Gastroesophageal reflux disease without esophagitis - Vonoprazan Fumarate 10 MG tablet; Take 10 mg by mouth Once per day. - sucralfate (Carafate) 1 g tablet; Take 1 tablet (1 g) by mouth before breakfast, before lunch, before evening meal, and at bedtime. - Referral to Gastroenterology; Future - Basic Metabolic Panel; Future - Magnesium; Future Primary hypertension Longstanding persistent atrial fibrillation (CMS/HCC) ([facility]) Functional diarrhea Gastroesophageal reflux disease without esophagitis: - Gastroesophageal reflux disease refractory to pantoprazole. - Prescribed sucralfate. Will submit prior authorization for new medication. Referred to turbo operator for further evaluation. Advised to avoid dietary irritants and trial discontinuation of green tea for 2 weeks to assess impact on symptoms. Chronic cough secondary to lisinopril: - Chronic cough attributed to lisinopril. - Discontinued lisinopril. Documented adverse effect in chart. Ecchymosis secondary to anticoagulation: - Ecchymosis likely related to anticoagulation therapy. - Continue Eliquis as prescribed. Monitor for further bruising. Diarrhea: - Diarrhea possibly secondary to prior antibiotic use; stool workup negative. - Recommended use of Imodium as needed. Edema in lower extremity: - Edema in right lower extremity resolved; no current indication for diuretic therapy. - No diuretic therapy recommended at this time. Atrial fibrillation: - Atrial fibrillation with irregular heart rate; anticoagulation indicated. - Continue Eliquis twice daily. Ordered blood tests to assess kidney function and magnesium levels.Follow-up scheduled in 3 months. This note was drafted using [employer]) technology. 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 30 tablet 3 amLODIPine (Norvasc) 5 MG tablet Take 1 tablet by mouth Once per day. apixaban (Eliquis) 5 MG tablet Take 1 tablet (5 mg) by mouth every 12 (twelve) hours. 60 tablet 3 Calcium Carb-Cholecalciferol 600-10 MG-MCG tablet Take 600 mg combined by mouth Once per day. TAKE 1 TABLET BY MOUTH ONCE DAILY 30 tablet 5 carboxymethylcellulose (Refresh Plus) 0.5 % ophthalmic solution Use as directed for dry eye cyanocobalamin (Vitamin B-12) 1000 MCG tablet TAKE 1 TABLET BY MOUTH EVERY MORNING 30 tablet 5 DULoxetine (Cymbalta) [address] capsule Take 1 capsule (20 mg) by mouth 2 times daily. Do not crush or chew. 60 capsule 11 fexofenadine (Irina Allergy) 180 MG tablet TAKE 1 TABLET BY MOUTH EVERY MORNING 30 tablet 5 fluticasone (Flonase) 50 MCG/ACT nasal spray Administer 1-2 sprays into each nostril in the morning. Shake gently. Before first use, prime pump. After use, clean tip and replace cap. 16 g 2 gabapentin (Neurontin) 600 MG tablet Take 1 tablet (600 mg) by mouth 3 times daily. 90 tablet 3 lisinopril 5 MG tablet Take 1 tablet (5 mg) by mouth Once per day. 30 tablet 11 metoprolol tartrate (Lopressor) 50 MG tablet Take 1 tablet (50 mg) by mouth every 12 (twelve) hours. 60 tablet 3 miconazole (Micatin) 2 % cream Apply topically 2 times daily. 600 mL 11 mirtazapine (Remeron) 15 MG tablet Take 0.5 tablets by mouth at bedtime. Multiple Vitamin (Multivitamin) tablet TAKE 1 TABLET BY MOUTH EVERY DAY 30 tablet 5 pantoprazole (Protonix) 40 MG EC tablet TAKE 1 TABLET BY MOUTH ONCE DAILY TAKE 30 MINUTES BEFORE BREAKFAST 30 tablet 11 Vonoprazan Fumarate 20 MG tablet Take 20 mg by mouth in the morning. 60 tablet 0 [DISCONTINUED] lisinopril 10 MG tablet Take 1 tablet by mouth Once per day. No current facility-administered medications on file prior to visit. documented in this encounter Plan of Treatment Upcoming Encounters Date Type Department Care Team (Late st Contact Info) Description 06/14/2025 3:00 PM EST Office Visit [facility] [address] [place] [address] Kali Kulkarni [address] [place] [address] Scheduled Orders Name Type Priority Associated Diagnoses Orde r Schedule Basic Metabolic Panel Lab Routine Gastroesophageal reflux disease without esophagitis Expected: 05/24/2025 (Approximate), Expires: 05/24/2026 Magnesium Lab Routine Gastroesophageal reflux disease without esophagitis Expected: 05/24/2025, Expires: 05/24/2026 Scheduled Referrals Name Type Priority Associated Diagnoses Order Schedule Referral to Gastroenterology Outpatient Referral Routine Gastroesophageal reflux disease without esophagitis Expected: 05/24/2025 (Approximate), Expires: 05/24/2026 documented as of this encounter Visit Diagnoses Diagnosis Gastroesophageal reflux disease without esophagitis- Primary Esophageal reflux Primary hypertension Unspecified essential hypertension Longstanding persistent atrial fibrillation (CMS/HCC) (HCC) Functional diarrhea documented in this encounter Additional Health Concerns Assessment Noted Time PHQ-9 Depression Total Score: 7 12/05/19 24 2:33 PM EDT documented as of this encounter Care Teams Slasher Hand Relationship Specialty Start Date End Date Meghan Portillo MD [address] [place] [address] PCP - General Internal Medicine 06/14/13 [employer] 02/18/25 documented as of this encounter
--- OUTSIDE RECORDS SUMMARY | 2025-05-24 17:14 | XMS_ITS | Encounter Summary ---
Author Organization [employer] Address [address] [facility] 7t [place] [address] Care Team Providers Care Furnace Converter Name Role Phone Meghan Portillo MD Primary Care Provider [phone]- [phone] Reason for Visit * Reason Onset Date Comments FYI 07/27/2024 Encounter Details Date Type Department Care Team ([facility] st Contact Info) Description 07/27/2024 Telephone [facility] MED & PEDS [address] [place], [place] [phone] Meghan Portillo MD [address] [place] [address] FYI Social History Tobacco Use Types Packs/Day [...] 9:36 AM EST TC tanesha Calvin with [facility] calling to inform pt has been declining services for ot and pt . States they tried couple times to visit pt for evaluation but pt continues to decline.Any further questions may contact Marixa at phone # [phone]. documented in this encounter Plan of Treatment Upcoming Encounters Date Type Department Care Team (Late st Contact Info) Description 06/14/2025 3:00 PM EST Office Visit [facility] [address] [place] [address] Kali Kulkarni [address] [place] [address] documented as of this encounter Visit Diagnoses Not on filedocumented in this encounter Additional Health Concerns Assessment Noted Time PHQ-9 Depression Total Score: 7 12/05/19 24 2:33 PM EDT documented as of this encounter Care Teams Furnace Converter Relationship Specialty Start Date End Date Meghan Portillo MD [address] [place] [address] PCP - General Internal Medicine 06/14/13 [employer] 06/30/24 02/23/25 Jon 02/18/25 documented as of this encounter
--- OUTSIDE RECORDS SUMMARY | 2025-05-24 17:14 | XMS_ITS | Encounter Summary ---
Author Organization [employer] Address [address] [facility] [address] 7t [place] [address] Care Team Providers Care Manager Advanced Name Role Phone Meghan Portillo MD Primary Care Provider +1 [phone] Reason for Visit * Reason Onset Date Comments PRE-OP 10/05/2024 Encounter Details Date Type Department Care Team (Late st Contact Info) Description 10/05/2024 Telephone [facility] [address] [place] [address] Meghan Portillo MD [address] [facility] [place] [address] PRE-OP Social History Tobacco Use Types Packs/Day [...] office still waiting for Office notes. FAX [phone] documented in this encounter Plan of Treatment Upcoming Encounters Date Type Department Care Team (Late st Contact Info) Description 06/14/2025 3:00 PM EST Office Visit [facility] [address] [place] [address] Kali Kulkarni [address] [place] [address] documented as of this encounter Visit Diagnoses Not on filedocumented in this encounter Additional Health Concerns Assessment Noted Time PHQ-9 Depression Total Score: 7 12/05/19 24 2:33 PM EDT documented as of this encounter Care Teams Manager Advanced Relationship Specialty Start Date End Date Meghan Portillo MD [address] [place] [address] PCP - General Internal Medicine 06/14/13 [employer] 06/30/24 02/23/25 Jon 02/18/25 documented as of this encounter
--- OUTSIDE RECORDS SUMMARY | 2025-05-24 17:15 | XMS_ITS | Encounter Summary ---
Author Organization [facility] Address [address] [place] [address] Care Team Providers Care Psychopaedic Nurse Name Role Phone Meghan Portillo MD Primary Care Provider [phone] Encounter Details Date Type Department Care Team (Late st Contact Info) Description 01/30/2025 Lab Requisition [facility] - Main Lab [address] [facility] [place] [id number] Katelynn Bee MD [address] [facility] 1 [place], [place] [phone] Anemia, unspecified; Other disorders of electrolyte and [...] mmol/L LAB CHEMISTRY METHOD 01/31/2025 2:00 PM [facility] Potassium 4.2 3.5 - 5.5 mmol/L LAB CHEMISTRY METHOD 01/31/2025 2:00 PM [facility] Chloride 104 96 - 110 mmol/L LAB CHEMISTRY METHOD 01/31/2025 2:00 PM [facility] CO2 26 21 - 32 mmol/L LAB CHEMISTRY METHOD 01/31/2025 2:00 PM [facility] Anion Gap 10 3 - 11 LAB CHEMISTRY METHOD 01/31/2025 2:00 PM [facility] Glucose 103(H) 70 - 100 mg/dL LAB CHEMISTRY METHOD 01/31/2025 2:00 PM [facility] BUN 18 5 - 25 mg/dL LAB CHEMISTRY METHOD 01/31/2025 2:00 PM [facility] Creatinine 0.96 0.50 - 1.10 mg/dL LAB CHEMISTRY METHOD 01/31/2025 2:00 PM [facility] eGFR 59(L) >=60 mL/min/1. 73m2 LAB CHEMISTRY METHOD 01/31/2025 2:00 PM [facility] Comment:Calculation based on the Chronic Kidney Disease Epidemiology Collaboration (CKD-EPI) equation refit without adjustment for race. BUN/Creatinine Ratio 18.8 LAB CHEMISTRY METHOD 01/31/2025 2:00 PM [facility] Calcium 8.6 8.5 - 10.5 mg/dL LAB CHEMISTRY METHOD 01/31/2025 2:00 PM [facility] AST (SGOT) 29 10 - 42 unit/L LAB CHEMISTRY METHOD 01/31/2025 2:00 PM [facility] ALT (SGPT) 29 10 - 60 unit/L LAB CHEMISTRY METHOD 01/31/2025 2:00 PM EDT [facility] Alkaline Phosphatase 57 42 - 121 unit/L LAB CHEMISTRY METHOD 01/31/2025 2:00 PM EDT [facility] Total Protein 6.0 6.0 - 8.0 g/dL LAB CHEMISTRY METHOD 01/31/2025 2:00 PM EDT [facility] Albumin 3.3 3.2 - 5.0 g/dL LAB CHEMISTRY METHOD 01/31/2025 2:00 PM EDT [facility] Total Bilirubin 0.4 0.0 - 1.4 mg/dL LAB CHEMISTRY METHOD 01/31/2025 2:00 PM EDT [facility] Blood Venous blood specimen / Unknown Venipuncture / Unknown 01/31/2025 7:50 AM EDT 01/31/2025 11:27 AM EDT Katelynn Bee MD LAB BLOOD ORDERABLES Fin al Result [facility] [address] [place] [address], * (ABNORMAL) Complete blood count (01/31/2025 7:50 AM EDT) WBC 6.3 4.8 - 10.8 K/mcL LAB HEMETOLOGY METHOD 01/31/2025 12:30 PM EDT [facility] RBC 4.00 3.80 - 4.80 M/mcL LAB HEMETOLOGY METHOD 01/31/2025 12:30 PM EDT [facility] Hemoglobin 11.3(L) 11.5 - 16.0 g/dL LAB HEMETOLOGY METHOD 01/31/2025 12:30 PM EDT [facility] Hematocrit 36.9 35.0 - 47.0 % LAB HEMETOLOGY METHOD 01/31/2025 12:30 PM EDT [facility] MCV 93.4 79.0 - 98.0 FL LAB HEMETOLOGY METHOD 01/31/2025 12:30 PM EDT [facility] MCH 28.6 27.0 - 32.0 pcg LAB HEMETOLOGY METHOD 01/31/2025 12:30 PM EDT [facility] MCHC 30.6(L) 32.0 - 37.0 g/dL LAB HEMETOLOGY METHOD 01/31/2025 12:30 PM EDT [facility] RDW 15.0 11.0 - 15.0 % LAB HEMETOLOGY METHOD 01/31/2025 12:30 PM EDT [facility] Platelets 304 130 - 400 K/mcL LAB HEMETOLOGY METHOD 01/31/2025 12:30 PM [facility] MPV 10.4 7.0 - 11.0 FL LAB HEMETOLOGY METHOD 01/31/2025 12:30 PM EDT [facility] NRBC 0.0 <1.0 % LAB HEMETOLOGY METHOD 01/31/2025 12:30 PM T [facility] NRBC Absolute 0.00 <0.10 K/mcL LAB HEMETOLOGY METHOD 01/31/2025 12:30 PM [facility] Blood Venous blood specimen / Unknown Venipuncture / Unknown 01/31/2025 7:50 AM EDT 01/31/2025 11:27 AM EDT us Katelynn Bee MD LAB BLOOD ORDERABLES Fin al Result [facility] [address] [place] [address], documented in this encounter Visit Diagnoses Diagnosis Anemia, unspecified Other disorders of electrolyte and fluid balance, not elsewhere classified documented in this encounter Additional Health Concerns Infection Onset Date Last Indicated Resolved Time C. difficile Rule-Out 02/05/2025 02/04/20252024 11:09 AM EDT documented as of this encounter Care Teams Psychopaedic Nurse Relationship Specialty Start Date End Date Meghan Portillo MD [address] [place] [address] PCP - General 12/10/23 documented as of this encounter
--- OUTSIDE RECORDS SUMMARY | 2025-05-24 17:15 | XMS_ITS | Encounter Summary ---
Author Organization [employer] Address [address] [facility] 7[address] [place] [address] Care Team Providers Care High Lighter Name Role Phone Meghan Portillo MD Primary Care Provider [phone]- [phone] Reason for Visit * Reason Onset Date Comments Medication Question 2024 Encounter Details Date Type Department Care Team ([facility] st Contact Info) Description 2024 Telephone [facility] CHC MED & PEDS [address] [place], [place] [phone] Meghan Portillo MD [address] [place] [address] Medication Question Social History Tobacco Use Types [...] Miscellaneous Notes * Telephone Encounter - Meghan Portilol MD - 2024 10:08 PM EDT I will correct the prescription and send 1 tablet at bedtime * Telephone Encounter - Susan Marixa - 2024 11:19 AM EDT Tc from [facility] with [facility] requesting clarification on medication sucralfate (Carafate) 1 g tablet .States pt was at 1 tablet at bed time but want to confirm increase for 3 tablets daily. documented in this encounter Plan of Treatment Upcoming Encounters Date Type Department Care Team (Late st Contact Info) Description 06/14/2025 3:00 PM EST Office Visit [facility] ADULT DENTAL [address] [place] [address] Kali Kulkarni [address] [place] [address] documented as of this encounter Visit Diagnoses Not on filedocumented in this encounter Additional Health Concerns Assessment Noted Time PHQ-9 Depression Total Score: 7 12/05/19 24 2:33 PM EDT documented as of this encounter Care Teams High Lighter Relationship Specialty Start Date End Date Meghan Portillo MD [address] [place] [address] PCP - General Internal Medicine 06/14/13 [employer] 06/30/24 02/23/25 [employer] 02/18/25 documented as of this encounter
--- OUTSIDE RECORDS SUMMARY | 2025-05-24 17:15 | XMS_ITS | Encounter Summary ---
Author Organization [employer] Address [address] [facility] [address] [place] [address] Care Team Providers Care Purchasing Expeditor Name Role Phone Meghan Portillo MD Primary Care Provider [phone]- [phone] Reason for Visit * Reason Onset Date Comments Chart Prep 05/23/2025 Encounter Details Date Type Department Care Team ([facility] st Contact Info) Description 05/23/2025 Telephone [facility] CHC MED & PEDS [address] [place], [place] [phone] Meghan Portillo MD [address] [place] [address] Chart Prep Social History Tobacco Use Types Packs/Day Years [...] encounter Miscellaneous Notes * Telephone Encounter - Odette Ziegler MA - 05/23/2025 3:48 PM EST Chart Prep Labs: done Images: not done Referrals: pt rescheduled Vaccines due: Covid, Flu, Tdap, RSV, and Zoster Screenings: not applicable Overdue care gaps: Tobacco documented in this encounter Plan of Treatment Upcoming Encounters Date Type Department Care Team (Late st Contact Info) Description 06/14/2025 3:00 PM EST Office Visit [facility] ADULT DENTAL [address] [place] [address] Kail Kulkarni [address] [place] [address] documented as of this encounter Visit Diagnoses Not on filedocumented in this encounter Additional Health Concerns Assessment Noted Time PHQ-9 Depression Total Score: 7 12/05/19 24 2:33 PM EDT documented as of this encounter Care Teams Purchasing Expeditor Relationship Specialty Start Date End Date Meghan Portillo MD [address] [place] [address] PCP - General Internal Medicine 06/14/13 [employer] 02/18/25 documented as of this encounter
--- OUTSIDE RECORDS SUMMARY | 2025-05-24 17:15 | XMS_ITS | Encounter Summary ---
Author Organization [employer] Address [address] [facility] 7[address] [place] [address] Care Team Providers Care Client Service Administrator Name Role Phone Meghan Portillo MD Primary Care Provider [phone]- [phone] Reason for Visit * Reason Onset Date Comments Hospital Follow-up 06/28/2024 Encounter Details Date Type Department Care Team (Late st Contact Info) Description 06/28/2024 Telephone [facility] MEDICINE [address] [place] [address] Meghan Portillo MD [address] [place] [address] Hospital Follow-up Social History Tobacco Use Types [...] from pt requesting a F appt. [place]: [facility] Date of admission: 06/23/2024 Discharge date:06/27/2024 Diagnosed:Gout *Send message to [place] [facility] Care Coordinators documented in this encounter Plan of Treatment Upcoming Encounters Date Type Department Care Team (Late st Contact Info) Description 06/14/2025 3:00 PM EST Office Visit [facility] ADULT DENTAL [address] [place] [address] Kali Kulkarni [address] [place] [address] documented as of this encounter Visit Diagnoses Not on filedocumented in this encounter Additional Health Concerns Assessment Noted Time PHQ-9 Depression Total Score: 7 12/05/19 24 2:33 PM EDT documented as of this encounter Care Teams Client Service Administrator Relationship Specialty Start Date End Date Meghan Portillo MD [address] [place] [address] PCP - General Internal Medicine 06/14/13 [email or web address] 06/30/24 02/23/25 Jon 02/18/25 documented as of this encounter
--- OUTSIDE RECORDS SUMMARY | 2025-05-24 17:15 | XMS_ITS | Encounter Summary ---
Author Organization [employer] Address [address] [facility] [address] [facility] [address] [place] [address] Care Team Providers Care Animal Care Supervisor Name Role Phone Meghan Portillo MD Primary Care Provider [phone] Encounter Details Date Type Department Care Team (Latest Contact Info) Description 05/24/2025 Travel Social History Tobacco Use Types Packs/Day Years [...] Description 06/14/2025 3:00 PM EST Office Visit [facility] ADULT DENTAL [address] [place] [address] Kali Kulkarni [address] [place] [address] documented as of this encounter Visit Diagnoses Not on filedocumented in this encounter Additional Health Concerns Assessment Noted Time PHQ-9 Depression Total Score: 7 12/05/19 24 2:33 PM EDT documented as of this encounter Care Teams Animal Care Supervisor Relationship Specialty Start Date End Date Meghan Portillo MD [address] [place] [address] PCP - General Internal Medicine 06/14/13 Jon 02/18/25 documented as of this encounter
--- OUTSIDE RECORDS SUMMARY | 2025-05-24 17:15 | XMS_ITS | Encounter Summary ---
Author Organization [employer] Address [address] [address] [facility] [address] [place] [address] Care Team Providers Care Dining Service Inspector Name Role Phone Meghan Portillo MD Primary Care Provider [phone]- [phone] Reason for Visit * Reason Onset Date Comments FYI 03/11/2025 Encounter Details Date Type Department Care Team (Late st Contact Info) Description 03/11/2025 Telephone [facility] MEDICINE [address] [place] [address] Meghan Portillo MD [address] [facility] [address] [place], [place] [phone] FYI Social History Tobacco Use Types Packs/Day [...] encounter Miscellaneous Notes * Telephone Encounter - Diego Ziegler - 03/11/2025 4:23 PM EDT Tc from [facility] stating pt did not answer for PT today. documented in this encounter Plan of Treatment Upcoming Encounters Date Type Department Care Team (Late st Contact Info) Description 06/14/2025 3:00 PM EST Office Visit [facility] CHC ADULT DENTAL [address] [place] [address] Kali Kulkarni [address] [place] [address] documented as of this encounter Visit Diagnoses Not on filedocumented in this encounter Additional Health Concerns Assessment Noted Time PHQ-9 Depression Total Score: 7 12/05/19 24 2:33 PM EDT documented as of this encounter Care Teams Dining Service Inspector Relationship Specialty Start Date End Date Meghan Portillo MD [address] [place] [address] PCP - General Internal Medicine 06/14/13 [employer] 02/18/25 documented as of this encounter
--- OUTSIDE RECORDS SUMMARY | 2025-05-24 17:15 | XMS_ITS | Data Portability ---
Author Organization [facility], [facility] Address [address] [place] [address] Care Team Providers Care Senior Telecommunications Technician Name Role Phone HIM CCA OTHER [facility] Primary Care Provider [phone] Assessment Encounter Date Assessment Date Assessment LastModified by Organization Details LastModified Time 08/11/2023 08/11/2023 service called for painful rash found 83 johanny with HTN c/o 3d worsening red, tender rash RLE denies trauma, bug bite +heat minor swelling denies fevers, chills also c/o thick conjunctival discharge c/w known seasonal allergic conjunctivitis NKDA VSS reported exam eyes non-injected, no drainage noted, EOMI confluent patch redness lateral RLE without skin defect #Celluitis RLE uncomplicated at this time kfelex course pt to monitor improvement, notify service if worsening or lack #Allergic conjunctivity restart olopatidine eye gtt [email or web address] Not available 08/11/2023 17:08:47 10/27/2023 10/27/2023 I have reviewed and agree with the assessment and plan as documented by the chief engineering division. I provided real-time medical direction for this encounter and was immediately available to provide additional phone-based assistance as needed. 83F presenting with wound to right lower ankle, redness, tenderness. Pt has had similar sore in the past, treated successfully with Keflex. Denies any fever, has been going on for ~1 week. O/E: Area of induration to lateral aspect of right ankle, 2cm in diameter. No surrounding erythema. No swelling or warmth. Suspect early cellulitis. Vitals at baseline, no concern for severe infectious process. Recommend antibiotics, will start Keflex. Red flags and return precautions discussed. paysola Not available 10/27/2023 15:31:00 03/09/2024 03/09/2024 I provided real -time medical direction via phone for this encounter, and was available for additional phone based assistance as needed. I have reviewed and agree with the Assessment and Plan as documented by the Milling Machine Set Up Operator. We discussed the diagnostic uncertainty of home visits and the risk associated with this. In this case the patient and I felt this to be an acceptable and reasonable amount of risk given the benefit of avoiding an ED visit. The patient given the opportunity to ask questions. Patient states she was told she cannot take aspirin-because it might thin her blood too much- she is not anticoagulated- denies hx CKD or anemia- does have GI issues- GERD per old record -on Protonix and sucralfate- denies PUD or hx GI bleed - states cannot take generics of most meds but no true allergies. She has no documentation of home record of CKD/ I have no recent labs... Taking Aleve OTC 220 mg twice a day this week without relief but denies any acute GI symptoms Advised if develops CP/heart racing/persistent palpitations/phan re SOB/turning blue/uncontrolled n/v/d or black/bloody emesis or stool/ AMS/ syncope/ hi fever /severe increase in left leg pain To call 911- verbalized understanding of instruction [email or web address] Not available 03/09/2024 20:21:40 06/24/2024 06/24/2024 I have reviewed and agree with the assessment and plan as documented by the chief engineering division. I provided real-time medical direction for this encounter and was immediately available to provide additional phone-based assistance as needed. History as noted in EMR and by chief engineering division. I would add / emphasize: Pt w/ swollen red foot seen for eval. Found to be lethargic, tachycardic and ill appearing. Unable to ambulate. To ED for further eval and management by EMS. [email or web address] Not available 06/27/2024 10:27:03 11/18/2024 11/18/2024 Mrs. Tovar was evaluated for congestion, cough, wheezing and shortness of breath. She is without fever, hypoxia, or increased work of breathing. The medic reports no fitz wheezes. Her rapid COVID and Flu testing were negative. She does report running out of her albuterol so new rx was sent to pharmacy for ventolin inhaler. She feels comfortable remaining home. Overall low clinical suspicion for ACS, PE, bacterial pneumonia, sepsis, impending respiratory failure. Discussed that if symptoms worsen, develops fever, etc. that next step would be ER for CXR and further evaluation. Home health aide was adamant patient be prescribed an antibiotic we discussed the risks and benefits will provide rx for z-imelda sent pharmacy. I provided real -time medical direction via phone for this encounter, and was available for additional phone based assistance as needed. I have reviewed and agree with the Assessment and Plan as documented by the Milling Machine Set Up Operator. We discussed the diagnostic uncertainty of home visits and the risk associated with this. In this case the patient and I felt this to be an acceptable and reasonable amount of risk given the benefit of avoiding an ED visit. The patient given the opportunity to ask questions. Advised if develops CP/severe SOB/turning blue/uncontrolled n/v/d or black/bloody emesis or stool/ AMS/ syncope/ hi fever unresponsive to APAP to call 911- verbalized understanding of instruction [email or web address] Not available 11/18/2024 16:25:29 Plan of Treatment Reminders Order Date Submit Date Provider Last Modified By Organization Details Last Modified Time Details Appointments None recorded. Lab rapid SARS CoV 2 Ag, QL IA, respirator y specimen [address], [address] [place] [address] 5 20:59:13 rapid flu (A+B) [address], [address] [place] [address] 5 20:59:14 BMP, serum or plasma 2023 [email or web address], [address] 4 17:05:40 Referral None recorded. Procedures None recorded. Surgeries None recorded. Imaging electrocar diogram 20[email or web address], [address] 4 17:05:40 electrocar diogram 2023 [email or web address], [address] 4 17:05:43 Medication Orders Ventolin HFA 90 mcg/actuat ion aerosol inhaler 2024 025 [facility], [address] [place], [address], 5 15:58:42 azithromyc in 250 mg tablet 2024 025 [facility], [address] [place], [address], 5 16:25:48 Celebrex 200 mg capsule 2023 024 [facility], [address] [place] [address], [id number], 4 08:11:08 cephalexin 500 mg capsule 2023 024 [facility], [address] [place], [address], 4 15:31:28 olopatadin e 0.1 % eye drops 2023 024 [facility], [address] [place], [address], 4 17:04:37 cephalexin 500 mg capsule 2023 024 [facility], [address] [place], [address], 4 17:04:32 Patient TargetsNo targets recorded. Patient InstructionsNo instructions recorded. Reason for Referral None Reported. Results Created Date Observation Date Name Description Value Unit Range Abnormal Flag Note LastModifiedBy Organization Detail LastModifiedTime 03/09/20 24 03/09/2024 josé moreno am No observ ation record ed. [address], [address] 03/09/2024 17:04:03 08/03/09/2024 josé moreno am No observ ation record ed. [facility] [address] [place] [address], [place], [address] 03/09/2024 17:05:42 Result Notes None recorded. Problems Name Problem SNOMED Code Status Onset Date Resolution Date Notes Provider Name and Address Organization Details Recorded Time Cellulitis 582338217 Active 023 Lauren Pastrana MD [address] [place] [address],[address], [place], [address], [facility] [employer] 3 17:08:35 Problem Notes None recorded. Medical Equipment None Reported. Allergies Allergen ID Allergen Name Allergen Category Reaction Reaction Severity Criticality Documentation Date Start Date Code Code System Note Provider Name and Address Organization Details Recorded Time 7088 aspirin medicatio n Not available Not available Not available 05/11/2024 1191 RxNorm Not Available [facility] 4 03:34:53 Medications Name Sig Start Date Stop Date Status Note LastModified by Organization Details LastModified Time delivery fee active Not Available Not Available Not Available mm-pullups xl t4528 active Not Available Not Available Not Available multivitami n tablet active Not Available Not Available Not Available celecoxib 200 mg capsule Take 1 capsule every day by oral route after meal(s) for 7 days. active Not Available Not Available No t Available amoxicillin 500 mg capsule 08/11 completed Not Available Not Available Not Available azithromyci n 250 mg tablet TAKE 2 TABLETS (500 MG) BY ORAL ROUTE ONCE DAILY FOR 1 DAY THEN 1 TABLET (250 MG) BY ORAL ROUTE ONCE DAILY FOR 4 DAYS active Not Available Not Available No t Available sucralfate 1 gram tablet active Not Available Not Available Not Available polyvinyl alcohol 1.4 % eye drops active Not Available Not Available Not Available cyanocobala min (vit B-12) 1,000 mcg tablet active Not Available Not Available N ot Available bacitracin 500 unit/gram topical ointment 1 applicati on to reddened area now as medic does not have Bactroban 2022 active Not Available Not Available Not Avai lable acetaminoph en 300 mg-codeine 30 mg tablet TAKE ONE TABLET EVERY 6 HOURS NEEDED FOR SEVERE PAIN active Not Available Not Available No t Available fexofenadin e 180 mg tablet active Not Available Not Available Not Available amlodipine 5 mg tablet active Not Available Not Available Not Available sulfamethox azole 800 mg-trimetho prim 160 mg tablet 1 tablet 08/11 completed Not Available Not Available Not Available acetaminoph en 500 mg tablet active Not Available Not Available Not Available famotidine 20 mg tablet active Not Available Not Available Not Available carboxymeth ylcellulose sodium 0.5 % eye drops active Not Available Not Available Not Available cephalexin 500 mg capsule Take 1 capsule every 6 hours by oral route for 14 days. active Not Available Not Available No t Available pantoprazol e 40 mg tablet,constantine yed release active Not Available Not Available Not Available olopatadine 0.1 % eye drops INSTILL 1 DROP INTO AFFECTED EYE(S) BY OPHTHALMI C ROUTE 2 TIMES PER DAY AT AN INTERVAL OF 6 TO 8 HOURS 2023 active Not Available Not Available Not Avai lable lisinopril 10 mg tablet active Not Available Not Available Not Available Citrucel 500 mg tablet active Not Available Not Available Not Available Ear Drops (carbamide peroxide) 6.5 % active Not Available Not Available Not Available Neurontin 400 mg capsule active Not Available Not Available Not Available mupirocin 2 % topical ointment APPLY A SMALL AMOUNT TO THE AFFECTED AREA BY TOPICAL ROUTE 2 TIMES PER DAY for 10 days active Not Available Not Available No t Available mirtazapine 15 mg tablet active Not Available Not Available Not Available polyethylen e glycol 3350 17 gram/dose oral powder active Not Available Not Available Not Available fluticasone propionate 50 mcg/actuati on nasal spray,suspe nsion active Not Available Not Available Not Available doxycycline hyclate 100 mg tablet 08/11 completed Not Available Not Available Not Available naproxen 500 mg tablet active Not Available Not Available Not Available amoxicillin 875 mg-potassiu m clavulanate 125 mg tablet active Not Available Not Available Not Available Ventolin HFA 90 mcg/actuati on aerosol inhaler Inhale 2 puffs every 4 hours by inhalatio n route as needed. 2024 active Not Available Not Available Not Avai lable esomeprazol e magnesium 20 mg capsule,del ayed release active Not Available Not Available Not Available neomycin 3.5 mg/g-polymy apolinar B 10,000 unit/g-dexa meth 0.1 % eye oint active Not Available Not Available Not Available duloxetine 20 mg capsule,del ayed release active Not Available Not Available Not Available Irina-D 24 Hour 180 mg-240 mg tablet,exte nded release Take 1 tablet(s) every day by oral route for 30 days. active Not Available Not Available No t Available calcium 600 mg (as carbonate)- vitamin D3 10 mcg (400 unit) tablet active Not Available Not Available Not Available Calcium 500 With D 500 mg-10 mcg (400 unit) tablet active Not Available Not Available Not Available Vitals Date Recorded Body weight Respiratory rate Heart rate Body temperature Body height Oxygen saturation Oxygen saturation in Arterial blood by Pulse oximetry Systolic And Diastolic Provider Name and Address Organization Details Last Updated DateTime 4 267379. 064 g 16 /min 86 /min 98.4 [degF] 160.02 cm 96 % 96 % 152/67 mm[Hg] Not Available [facility] [employer] 4 16:51:21 Date Recorded Heart rate Respiratory rate Oxygen saturation Oxygen saturation in Arterial blood by Pulse oximetry Body temperature Systolic And Diastolic Provider Name and Address Organization Details Last Updated DateTime 4 84 /min 16 /min 96 % 96 % 98.5 [degF] 161/79 mm[Hg] Not Available [employer] [employer] 4 15:27:41 Date Recorded Body temperature Respiratory rate Heart rate Body weight Body height Oxygen saturation Oxygen saturation in Arterial blood by Pulse oximetry Systolic And Diastolic Provider Name and Address Organization Details Last Updated DateTime 5 97.7 [degF] 22 /min 94 /min 457728. 92 g 160.02 cm 96 % 96 % 129/71 mm[Hg] Not Available [facility] [employer] 5 15:52:16 Date Recorded Body temperature Respiratory rate Heart rate Oxygen saturation Oxygen saturation in Arterial blood by Pulse oximetry Systolic And Diastolic Provider Name and Address Organization Details Last Updated DateTime 4 98.8 [degF] 20 /min 120 /min 95 % 95 % 167/92 mm[Hg] Not Available [facility] [employer] 4 16:04:33 Date Recorded Oxygen saturation Oxygen saturation in Arterial blood by Pulse oximetry Respiratory rate Heart rate Body temperature Systolic And Diastolic Provider Name and Address Organization Details Last Updated DateTime 4 92 % 92 % 28 /min 128 /min 98.6 [degF] 128/66 mm[Hg] Not Available [facility] 19:31:08 Social History None recorded. Functional Status None recorded. Mental Status None recorded. Family History Nothing Reported. Medical History No medical history recorded. Gynecological HistoryNo gynecological history recorded. Obstetrics History GPAL:G 0 P 0 0 0 0 Past Encounters Encounter ID Performer Location Encounter Start Date Encounter Closed Date Diagnosis/Indication Diagnosis SNOMED-CT Code Diagnosis ICD10 Code Diagnosis IMO Codes Diagnosis Note [id number] Mark Luu MD Main - [address] [address] 12/02/2022 10:44:15 12/03/2022 15:00:57 Allergic rhinitis caused by pollen 36060424 J30.1 [id number] Lauren Pastrana MD Main - [address] [address] 04/14/2023 16:59:40 04/14/2023 23:10:37 Cellulitis 469804117 L03.90 Advised patient only has help 4 hours a day she reports so it may be difficult for her to apply moist heat for 15 min ( being careful not to burn herself)an d topical antibiotic ointment more than once daily, but she will attempt to do 2-3 x per dayAdvised needs short-term close follow-up with her PCP as may need referral for incision or excision or drainagePa tient is already on Celebrex so I do not want to recommend other NSAIDs. I advised may have 1 g of Tylenol 4 times a day for pain as needed [id number] Praveen Starks MD Main - [facility] [address] [place] [phone] 08/11/2023 16:51:05 08/12/2023 11:00:25 Cellulitis of lower limb 513409284 L03.119 Conjunctivitis 7687870 H 10.9 [id number] [facility]Szi Prieto [facility] [address] [place] [phone] 10/27/2023 15:27:25 10/27/2023 22:17:34 Cellulitis of lower leg 746492583 L03.119 [id number] Lauren Pastrana MD Main - [address] [address] 03/09/2024 16:04:19 03/10/2024 00:05:22 Pain in left foot [id number] 50901 M79.672 and ankle? Patient reports it feels like fibromyalg ia in her other leg she usually gets it on the right. Patient is requesting name brand Celebrex she cannot do generic/ad vised I have no recent labs well within the past year send need to check labs. BLS medic called for another medic. Advised and also concerned with her tachycardi a so I requested an EKG I have no old EKGs- patient was initially tachycardi c with right bundle branch block. EKG tracings left with the patient and note sent to urgent care technician via [facility] requesting cardiac evaluation . Patient aware of same -aware we cannot do cardiovasc ular eval in the home but she has no current cardiovasc ular symptoms other than brief tachycardi a. Patient's heart rate decreased on its own spontaneou sly. Discussed with the patient the possibilit y of a DVT so cautioned her if she gets worsening leg pain or any cardioresp iratory symptoms to go into the emergency room immediatel y and she verbalized understand ing. I also sent a note to the urgent care technician via [facility] requesting they help schedule her for an ultrasound to rule out a DVT. Advised to continue her Neurontin, would prescribe 1 week of mammogram Celebrex made patient aware that her insurance might require a prior authorizat ion which we are unable to do-vies no relief while on the Celebrex. [id number] Marcelo Sanchez MD Main - [facility] [address] [place] [phone] 06/24/2024 19:31:04 06/28/2024 11:32:15 Lethargy [id number] R53.83 [id number] DEWAYNE DEAL MD Main - [facility] [address] [place] [phone] 11/18/2024 15:52:14 11/18/2024 19:46:39 Acute cough 7423493780 95985990 R05.9 [id number] Health Concerns Section Related Observation LastModified by Organization Detai ls LastModified Time None Recorded Concern Status LastModified by Organization Details LastModified Time None Recorded Advance Directives Directive None Recorded Payers Insurance Date Sequence Insurance Name Policy Number Policy Go Covered Member ID Go Member ID Guarantor Name 04/14/[address] [facility] [place] [place] - DOS PRIOR TO 2022 - DUAL ELIGIBLE (MEDICARE REPLACEMENT/ADV ANTAGE - HMO) Ginny Tovar [id number] Ginny Tovar 11/18/[address] [facility] [place] [place] - DOS ON OR AFTER 2022 - DUAL ELIGIBLE - CARE HOME OPTIONS AND ONE CARE (MEDICARE REPLACEMENT/ADV ANTAGE - HMO) Ginny Tovar [id number] Ginny Roa Guy Notes Date Note Type Note Provider Name and Address Organization Details Recorded Time 08/11/2023 text/html [facility] Nurse Triage Notes (Kathy Buenrostro): Chief Complaints: Edema, Pain PMH: COPD/Asthma, Hypertension, Other Allergies: Aspirin Pain Assessment: Level 10 out of 10 Comments: right ankle/foot pain edema and pain. Slightly discolored to area-appears bruised. Symptoms started Friday and is getting worse. No falls or injuries. Praveen Starks MD [address] [place] [address],[address], [place], [address], [employer] 08/11/2023 17:08:58 10/27/2023 text/html [facility] Nurse Triage Notes (Kathy Buenrostro): Reason For Request: Pt reporting having a sore above her right ankle about the size of a nickel>right foot has been swollen, off and on the last 2 months>unsure if the sore has aggravated foot Chief Complaints: Edema PMH: COPD/Asthma, Hypertension Allergies: Aspirin Comments: Boring Machine Operator Vertical verified name//address. For 2 months member reports intermittent swelling and pain to right foot/ankle. Base of right great toe has purple discoloration. Open area the size of a nickel 2-3 inches above ankle. Denies drainage. Painful to bear weight. Denies fever. ...................... ...................... ...................... ...................... ...................... ...................... ......... Milling Machine Set Up Operator Note From Wagner Conway: Pt reports painful chronic wound on right ankle. Pt was seen by [facility] in July for the same issue, treated with cephalexin which the pt sts helped. Pt denies CP, SOB, f/n/v/d. Pt is alert, NAD. VSS. Afebrile. Non focal neuro exam. Lungs CTA. Benign ABD exam. Right LE appears more swollen then left, non pitting. Wound on right ankle is quarter sized, no streaking, no drainage, no warmth. C contacted and pt treated with cephalexin 500 mg PO. Pt instructed to f/u with PCP and to seek emergent medical care for new or worsening sx, which are reviewed with her. ...................... ...................... ...................... ...................... ...................... ...................... ......... Disposition: Fulfilled Suzi Prieto MD [address] [facility],[address], [place], [address], [facility] [employer] 10/27/2023 20:33:18 03/09/2024 text/html ROS as noted in the HPI [facility] Nurse Triage Notes (Colby Mcallister): Reason For Request: Dr. Meghan Portillo MD unable to locate in [place]*Pt notes her fibromyalgia and mentions her left foot and ankle swelling + pain (10+ out of 10) Chief Complaints: Edema, Pain PMH: COPD/Asthma, Hypertension Allergies: Aspirin Comments: Boring Machine Operator Vertical verified the member's name//address and phone number. Mbr calling c/o LLE pain in L foot and ankle. Mbr reports hx of fibromyalgia. Mbr denies recent injury to the area. Education provided on the response time and the member was advised to monitor reported s/s and seek emergency treatment if needed -Kendra Mcallister RN---- 03/08 approx 8:30p call to member, she wishes to be seen tomorrow as it is too late, she request a visit around 1p if possible- Milling Machine Set Up Operator Organization Information for Douglas Castillo Legal Name: [employer] Address: [address] [place] [address], Stage Set Up Worker: Vu Black MD CLIA No.: [id number] Milling Machine Set Up Operator POC Test Results from Douglas Castillo [facility] (16:17:12) EKG test performed. Attachments uploaded as part of this test result can be found under Documents section. EKG (16:25:15) EKG test performed. Attachments uploaded as part of this test result can be found under Documents section. iSTAT Chem8+ (16:42:59) Na: 141 mEq/L K: 3.7 mEq/L Cl: 100 mEq/L iCa: 1.07 mmol/L TCO2: 27 mmol/L Glu: 138 mg/dL BUN: 17 mg/dL Crea: 0.9 mg/dL Hct: 40 % Hb: 13.6 g/dL A Attachments uploaded as part of this test result can be found under Documents section. ...................... ...................... ...................... ...................... ...................... ...................... ......... Milling Machine Set Up Operator Note From JonathanDouglas mean: Was dispatched for a 83 Y/O female complaining of left foot pain. UOA PT was found laying in her chair. PT is A/Ox4. PT reported she has a history of fibromyalgia and her left foot is causing pain with some swelling PT related this pain when she had a flare up on her right foot and is looking for a prescription medication to help with the pain. Assessment was performed with nothing found. [facility] was contacted. [facility] was concerned it might be a possible DVT. [facility] also wanted an ISTAT performed and a 12 lead EKG due to the PT being tachycardic. EKG showed nothing abnormal besides a right bundle branch. Dispatch was contacted for ALS. Milling Machine Set Up Operator Arabella arrived on scene and performed an ISTAT. [facility] was happy with the treatment and prescribed the patient medication at her pharmacy for her fibromyalgia [facility] Lab Orders: BMP, serum or plasma: Performed Comment: performed by chief engineering divisionla bell Milling Machine Set Up Operator 1 Allergies: Aspirin ...................... ...................... ...................... ...................... ...................... ...................... ......... Milling Machine Set Up Operator Note From Homer Bell: Dispatched to assistdoyle with performing a POC BMP on 83 y/o female pt at the request of Dr Padilla was drawn from pts right hand w/o complications BMP was performed and results uploaded Milling Machine Set Up Operator 2 Allergies: Aspirin ...................... ...................... ...................... ...................... ...................... ...................... ......... Disposition: Fulfilled SEGMD: Patient denies: Chest pain, shortness of breath, palpitations, (patient was unaware her heart was rapid )anxiety, sweats, nausea, vomiting, diarrhea, fever or chills. She states she usually gets fibromyalgia pain in her right foot and this feels identical on her left calf ankle and foot. She denies trauma. On record review she has had cellulitis multiple times of her lower extremities but there is no erythema. Patient states she was given Celebrex before, which works, but she needs the name brand for her pain. She is also on Neurontin for her pain. She has had no recent lab work although old records with no history of CKD, she is on sucralfate and Protonix for GERD. She is not anticoagulated. She has been taking Aleve 220 mg twice a day-denies GI upset melena or hematochezia with that. Lauren Pastrana MD [address] [place] [address],[address], [place], [address], [employer] 03/09/2024 20:24:56 06/24/2024 text/html CRC Nurse Triage Notes (Colby Mcallister - TRISTA): Reason For Request: Home nurse Yisel calling, pt's left foot is swollen and red, hot to the touch Denies: Calderón Flash, circumferential calderón Calderón reported with black tissue to the area Open skin area after a fall with uncontrolled bleeding Abscess/infection with streaking noted, presence of fever or without Chief Complaints: Swelling, Leg pain/swelling PMH: COPD/Asthma, Hypertension Comments: Boring Machine Operator Vertical verified the patient's name//address and phone number. Pt's home caregiver calling reporting pt's L foot red, swollen, and hot to the touch for approx one week; caregiver reports swelling getting worse. Pt taking Tylenol with no relief in the pain. Pt reportedly having difficulty walking/ bearing weight due to the pain in L foot. Education provided on the response time and the patient was advised to monitor reported s/s and seek emergency treatment if needed -Kendra Mcallister RN ...................... ...................... ...................... ...................... ...................... ...................... ......... Milling Machine Set Up Operator Note From Aung Christina: Dispatched to above address for foot pain/ swelling. On arrival patients DEBONING TEAM LEADER met SC8 at the door, reports patient has had ongoing L foot swelling and pain since last week, today unable to ambulate pain and swelling are worse, patient is generally weak and seems to be more tired than normal. Patient 84 y/o F, found sitting in recliner, AOX4, airway patent, speaking in full sentences, good color, in no apparent distress, lethargic. Patient reports similar story to her DEBONING TEAM LEADER, does endorse malaise lethargy and severe pain. Patients vital signs checked. On exam bilateral pedal edema, L foot more swollen, pain to palpation from foot to bottom of knee on L side, redness on L foot. Patient unable to bear weight. [facility] contacted, advised of patient complaints and exam findings. [facility] recommends transport to ER for sepsis evaluation. Patient agrees with this. 911 contacted. [facility] ambulance responded. Verbal report given to [facility] Milling Machine Set Up Operator, took over patient care, will transport to ER for further evaluation. SC8 clear. EOR. ...................... ...................... ...................... ...................... ...................... ...................... ......... [facility] Consulted: Allfather, Peter ...................... ...................... ...................... ...................... ...................... ...................... ......... Disposition: Antwan Marcelo Sanchez MD [address] [place] [address],[address], [place], [address], [employer] 06/27/2024 10:27:18 11/18/2024 text/html ROS as noted in the [facility] CRC Nurse Triage Notes (Naila Black): Reason For Request: cough /chest congestion/chills Patient Reports: Cough, fever greater than 2 days ; History of asthma, increased use of inhaler; Sputum increase ; Cough; Shortness of breath with exertion; Pain with inspiration Denies: Increased work of breathing/labored with or without fever Unable to speak in full sentences without distress Discoloration of skin -cyanosis Needs to sleep sitting up, can t catch breath Shortness of breath in setting of confusion COPD Chief Complaints: Common Cold PMH: COPD/Asthma, Hypertension, Gout, Chronic Bronchitis, Gastroesophageal Reflux Disease (GERD), Asthma, Rheumatoid Arthritis, Fibromyalgia PMH Reviewed at 11/18/2024: Allergies Reviewed at 11/18/2024 - :03 Comments: 84 y.o female complains of Common Cold Pt is calling for 3-4 days of cold symptoms. She has deep cough, with a rattle green sputum. She does have fever/ chills , unsure the temp. She is having increased weakness and fatigue. She does have sob, and has asthma. She does not have an inhaler or neb at this time. She does have exp wheeze, unable to hear on the phone. She has some chest pressure with deep breath. She does not have any cardiac concerns. She is not taking anything OTC I provided information on the mobile health provider response time and advised the patient and/or caregiver to monitor reported signs and symptoms. I discussed the warning signs of when to seek emergency care. Milling Machine Set Up Operator Organization Information for [employer] Name: [employer]. Address: [address] [place] [address], Stage Set Up Worker: Mark LAZAR No.: [id number] Milling Machine Set Up Operator POC Test Results from [employer] [facility] Rapid influenza antigen (16:14:02) Flu: - Rapid COVID antigen (16:14:09) COVID: - ...................... ...................... ...................... ...................... ...................... ...................... ......... Milling Machine Set Up Operator Note From [facility]: Visit for an 84 year old female with a reported CC of cold symtoms. O/a found Pt walking with walker in home A&O x 4. Pt rested a momment in chair and was able to speak in full sentences without effort. Pt reports she has had a cough for about three days. Reports cough was productive with green stuff yesterday but not today. Reports she has a post nasal drip yesterday but not today. Pt reports had some chills a few days ago but has not had them since. Pt reports these symtoms are cyclical coming and going every three months or so.. . Pt PMHX of COPD and asthma though Pt reports she is out of MDI. Pt denies any N/V/D/CP. Reports SOB when I walk for a minute . Vitals obtained and w/in NRL. Lung sounds clear bilateral. Skin PWD. No cough or SOB noted. [facility] Dewayne Deal contacted. Rapid Flu and Covid Ordered. Results Negative. MDI prescription called to pharmacy. Pt's DEBONING TEAM LEADER arrived. Advised to call again if symptoms return or worsen. Advised to seek chest X-ray if experiencing SOB. DEBONING TEAM LEADER insisted that we provide - as we did before - a portable x-ray. [facility] and [facility] contacted to find appropriate agency for portable x-ray without success. DEBONING TEAM LEADER insisted an antibiotic be prescribed reporting the the Pt has the bronchitis infection . Education discussion of proper use of abx was unsuccessful. [facility] [place] contacted. Prescription sent to Pt pharmacy. Pt's DEBONING TEAM LEADER will contact [facility] for portable x-ray. Medication education and red flags discussed. [facility] Lab Orders: rapid SARS CoV 2 Ag, QL IA, respiratory specimen: Performed Comment: neg rapid flu (A+B): Performed Comment: neg ...................... ...................... ...................... ...................... ...................... ...................... ......... [facility] Consulted: Dewayne Deal ...................... ...................... ...................... ...................... ...................... ...................... ......... Disposition: Fulfilled DEWAYNE DEAL MD [address] [facility],[address], [place], [address], [facility] 11/18/2024 17:19:57 OBGyn Episode No OBEpisode recorded.
--- OUTSIDE RECORDS SUMMARY | 2025-05-24 17:15 | XMS_ITS | Encounter Summary ---
Author Organization [employer] Address [address] [place] [address] [address] [place] [address] Care Team Providers Care Pellet Post Inspector Name Role Phone Meghan Portillo MD Primary Care Provider [phone] Encounter Details Date Type Department Care Team (Late Contact Info) Description 04/19/2024 Orders Only [facility] [address] [place], [place] [phone] Meghan Portillo MD [address] [place], [place] [phone] Gastroesophageal reflux disease without esophagitis (Primary Dx) [...] Department Care Team (Late Contact Info) Description 06/14/2025 3:00 PM EST Office Visit [facility] ADULT D[facility] [address] [place], [place] [phone] Kali Kulkarni [address] [place] [address] documented as of this encounter Visit Diagnoses Diagnosis Gastroesophageal reflux disease without esophagitis- Primary Esophageal reflux documented in this encounter Additional Health Concerns Assessment Noted Time PHQ-9 Depression Total Score: 7 12/05/19 24 2:33 PM EDT documented as of this encounter Care Teams Pellet Post Inspector Relationship Specialty Start Date End Date Meghan Portillo MD [address] [place] [address] PCP - General Internal Medicine 06/14/13 [employer] 06/30/24 02/23/25 Jon 02/18/25 documented as of this encounter
--- OUTSIDE RECORDS SUMMARY | 2025-05-24 17:15 | XMS_ITS | Encounter Summary ---
Author Organization [facility] Address [address] [place] [address] Care Team Providers Care Dining Room Attendant Cafeteria Name Role Phone Meghan Portillo MD Primary Care Provider [phone] [phone] Encounter Details Date Type Department Care Team (Late st Contact Info) Description 02/05/2025 Lab Requisition [facility] - Main Lab [address] [facility] [place] [address] Katelynn Bee MD [address] [address] Encounter for screening for infectious and parasitic [...] as of this encounter Care Teams Dining Room Attendant Cafeteria Relationship Specialty Start Date End Date Meghan Portillo MD [address] [place] [address] PCP - General 12/10/23 documented as of this encounter
--- OUTSIDE RECORDS SUMMARY | 2025-05-24 17:15 | XMS_ITS | Encounter Summary ---
Author Organization [employer] Address [address] [place] [address] Care Team Providers Care Barn Worker Name Role Phone Meghan Portillo MD Primary Care Provider [phone] Reason for Visit * Reason Onset Date Comments Hospital Follow-up 04/05/2025 Encounter Details Date Type Department Care Team (Late st Contact Info) Description 04/05/2025 Telephone [facility] MED[facility]INE [address] [place] [address] Meghan Portillo MD [address] [place] [address] Hospital Follow-up Social History Tobacco Use Types [...] encounter Miscellaneous Notes * Telephone Encounter - Stewart Davenport - 04/05/2025 11:57 AM EDT Caller requesting HDF visit Hospital: [facility] Date of admission: 03/09/25 Discharge date: 03/12/25 Diagnosed: diarrhea/ low potassium and magnesium documented in this encounter Plan of Treatment Upcoming Encounters Date Type Department Care Team (Late st Contact Info) Description 06/14/2025 3:00 PM EST Office Visit [facility] ADULT D[facility] [address] [place] [address] Kali Kulkarni [address] [place] [address] documented as of this encounter Visit Diagnoses Not on filedocumented in this encounter Additional Health Concerns Assessment Noted Time PHQ-9 Depression Total Score: 7 12/05/19 24 2:33 PM EDT documented as of this encounter Care Teams Barn Worker Relationship Specialty Start Date End Date Meghan Portillo MD [address] [place] [address] PCP - General Internal Medicine 06/14/13 [employer] 02/18/25 documented as of this encounter
--- OUTSIDE RECORDS SUMMARY | 2025-05-24 17:15 | XMS_ITS | Encounter Summary ---
Author Organization [employer] Address [address] [facility] [address] [place] [address] Care Team Providers Care Sap Security Consultant Name Role Phone Meghan Portillo MD Primary Care Provider [phone] Encounter Details Date Type Department Care Team (Late st Contact Info) Description 12/09/2023 Orders Only [facility]S [address] [place], [place] [phone] Meghan Portillo MD [address] [place] [address] Social History Tobacco Use Types Packs/Day Years [...] Description 06/14/2025 3:00 PM EST Office Visit [facility] ADULT DENTAL [address] [place] [address] Kali Kulkarni [address] [place] [address] documented as of this encounter Visit Diagnoses Not on filedocumented in this encounter Additional Health Concerns Assessment Noted Time PHQ-9 Depression Total Score: 7 12/05/19 2:33 PM EDT documented as of this encounter Care Teams Sap Security Consultant Relationship Specialty Start Date End Date Meghan Portillo MD [address] [place] [address] PCP - General Internal Medicine 06/14/13 [employer] 06/30/24 02/23/25 Jon 02/18/25 documented as of this encounter
--- OUTSIDE RECORDS SUMMARY | 2025-05-24 17:15 | XMS_ITS | Encounter Summary ---
Author Organization [facility] Address [address] [place] [address] Care Team Providers Care Well Surveying Engineer Name Role Phone Meghan Portillo MD Primary Care Provider [phone] Encounter Details Date Type Department Care Team (Late st Contact Info) Description 01/26/2025 Lab Requisition [facility] - Main Lab [address] [facility] [place] [phone] Katelynn Bee MD [address] [facility] [address] [place], [place] [phone] Anemia, unspecified; Essential (primary) hypertension; Other disorders [...] mmol/L LAB CHEMISTRY METHOD 01/26/2025 2:42 PM [facility] Potassium 3.7 3.5 - 5.5 mmol/L LAB CHEMISTRY METHOD 01/26/2025 2:42 PM [facility] Chloride 98 96 - 110 mmol/L LAB CHEMISTRY METHOD 01/26/2025 2:42 PM [facility] CO2 29 21 - 32 mmol/L LAB CHEMISTRY METHOD 01/26/2025 2:42 PM [facility] Anion Gap 11 3 - 11 LAB CHEMISTRY METHOD 01/26/2025 2:42 PM [facility] Glucose 82 70 - 100 mg/dL LAB CHEMISTRY METHOD 01/26/2025 2:42 PM [facility] BUN 12 5 - 25 mg/dL LAB CHEMISTRY METHOD 01/26/2025 2:42 PM [facility] Creatinine 0.91 0.50 - 1.10 mg/dL LAB CHEMISTRY METHOD 01/26/2025 2:42 PM [facility] eGFR 63 >=60 mL/min/1. 73m2 LAB CHEMISTRY METHOD 01/26/2025 2:42 PM [facility] Comment:Calculation based on the Chronic Kidney Disease Epidemiology Collaboration (CKD-EPI) equation refit without adjustment for race. BUN/Creatinine Ratio 13.2 LAB CHEMISTRY METHOD 01/26/2025 2:42 PM [facility] Calcium 8.5 8.5 - 10.5 mg/dL LAB CHEMISTRY METHOD 01/26/2025 2:42 PM [facility] AST (SGOT) 31 10 - 42 unit/L LAB CHEMISTRY METHOD 01/26/2025 2:42 PM [facility] ALT (SGPT) 29 10 - 60 unit/L LAB CHEMISTRY METHOD 01/26/2025 2:42 PM EDT [facility] Alkaline Phosphatase 60 42 - 121 unit/L LAB CHEMISTRY METHOD 01/26/2025 2:42 PM EDT [facility] Total Protein 6.3 6.0 - 8.0 g/dL LAB CHEMISTRY METHOD 01/26/2025 2:42 PM EDT [facility] Albumin 3.2 3.2 - 5.0 g/dL LAB CHEMISTRY METHOD 01/26/2025 2:42 PM EDT [facility] Total Bilirubin 0.5 0.0 - 1.4 mg/dL LAB CHEMISTRY METHOD 01/26/2025 2:42 PM EDT [facility] Blood Venous blood specimen / Unknown 01/26/2025 5:07 AM EDT 01/26/2025 12:21 PM EDT us Katelynn Bee MD LAB BLOOD ORDERABLES Fin al Result [facility] [address] [place] [address], * (ABNORMAL) Complete blood count (01/26/2025 5:07 AM EDT) WBC 8.6 4.8 - 10.8 K/mcL LAB HEMETOLOGY METHOD 01/26/2025 1:40 PM EDT [facility] RBC 4.20 3.80 - 4.80 M/mcL LAB HEMETOLOGY METHOD 01/26/2025 1:40 PM EDT [facility] Hemoglobin 11.9 11.5 - 16.0 g/dL LAB HEMETOLOGY METHOD 01/26/2025 1:40 PM EDT [facility] Hematocrit 40.0 35.0 - 47.0 % LAB HEMETOLOGY METHOD 01/26/2025 1:40 PM EDT [facility] MCV 95.7 79.0 - 98.0 FL LAB HEMETOLOGY METHOD 01/26/2025 1:40 PM EDT [facility] MCH 28.5 27.0 - 32.0 pcg LAB HEMETOLOGY METHOD 01/26/2025 1:40 PM EDT [facility] MCHC 29.8(L) 32.0 - 37.0 g/dL LAB HEMETOLOGY METHOD 01/26/2025 1:40 PM EDT [facility] RDW 15.0 11.0 - 15.0 % LAB HEMETOLOGY METHOD 01/26/2025 1:40 PM EDT [facility] Platelets 333 130 - 400 K/mcL LAB HEMETOLOGY METHOD 01/26/2025 1:40 PM EDT [facility] MPV 10.0 7.0 - 11.0 FL LAB HEMETOLOGY METHOD 01/26/2025 1:40 PM EDT [facility] NRBC 0.0 <1.0 % LAB HEMETOLOGY METHOD 01/26/2025 1:40 PM EDT [facility] NRBC Absolute 0.00 <0.10 K/mcL LAB HEMETOLOGY METHOD 01/26/2025 1:40 PM EDT [facility] Blood Venous blood specimen / Unknown 01/26/2025 5:07 AM EDT 01/26/2025 12:21 PM EDT us Katelynn Bee MD LAB BLOOD ORDERABLES Fin al Result [facility] [address] [place] [address], documented in this encounter Visit Diagnoses Diagnosis Anemia, unspecified Essential (primary) hypertension Unspecified essential hypertension Other disorders of electrolyte and fluid balance, not elsewhere classified documented in this encounter Additional Health Concerns Infection Onset Date Last Indicated Resolved Time C. difficile Rule-Out 02/05/2025 02/04/20252024 11:09 AM EDT documented as of this encounter Care Teams Well Surveying Engineer Relationship Specialty Start Date End Date Meghan Portillo MD [address] [place] [address] PCP - General 12/10/23 documented as of this encounter
--- OUTSIDE RECORDS SUMMARY | 2025-05-24 17:15 | XMS_ITS | Clinical Summary ---
Author Organization [address] [facility] Address [address] [place] [address] Phone Care Team Providers Care Knit Goods Mender Name Role Phone Meghan Portillo MD Primary Care Provider [phone] [phone] Allergies Active Allergy Reactions Criticality Noted Date [...] of shoulder 05/21/2005 Overview (04/19/2024): IMO update Social History Tobacco Use Types Packs/Day Years [...] Depression Screening 07/14/2024 COVID-19 Vaccine ( season) 2025 07/02/2024, 12/05/2023, 05/18/2021, Additional history exists Influenza [...] Relevant to Health Maintenance Results * (ABNORMAL) Comprehensive metabolic panel (02/14/2025 5:08 AM EDT) Sodium 140 133 - 145 mmol/L LAB CHEMISTRY METHOD 02/14/2025 12:22 PM [facility] Potassium 4.1 3.5 - 5.5 mmol/L LAB CHEMISTRY METHOD 02/14/2025 12:22 PM [facility] Chloride 104 96 - 110 mmol/L LAB CHEMISTRY METHOD 02/14/2025 12:22 PM [facility] CO2 27 21 - 32 mmol/L LAB CHEMISTRY METHOD 02/14/2025 12:22 PM [facility] Anion Gap 9 3 - 11 LAB CHEMISTRY METHOD 02/14/2025 12:22 PM [facility] Glucose 105(H) 70 - 100 mg/dL LAB CHEMISTRY METHOD 02/14/2025 12:22 PM [facility] BUN 20 5 - 25 mg/dL LAB CHEMISTRY METHOD 02/14/2025 12:22 PM [facility] Creatinine 1.12(H) 0.50 - 1.10 mg/dL LAB CHEMISTRY METHOD 02/14/2025 12:22 PM [facility] eGFR 49(L) >=60 mL/min/1. 73m2 LAB CHEMISTRY METHOD 02/14/2025 12:22 PM [facility] Comment:Calculation based on the Chronic Kidney Disease Epidemiology Collaboration (CKD-EPI) equation refit without adjustment for race. BUN/Creatinine Ratio 17.9 LAB CHEMISTRY METHOD 02/14/2025 12:22 PM [facility] Calcium 7.4(L) 8.5 - 10.5 mg/dL LAB CHEMISTRY METHOD 02/14/2025 12:22 PM [facility] AST (SGOT) 34 10 - 42 unit/L LAB CHEMISTRY METHOD 02/14/2025 12:22 PM [facility] ALT (SGPT) 24 10 - 60 unit/L LAB CHEMISTRY METHOD 02/14/2025 12:22 PM [facility] Alkaline Phosphatase 63 42 - 121 unit/L LAB CHEMISTRY METHOD 02/14/2025 12:22 PM [facility] Total Protein 6.2 6.0 - 8.0 g/dL LAB CHEMISTRY METHOD 02/14/2025 12:22 PM [facility] Albumin 3.3 3.2 - 5.0 g/dL LAB CHEMISTRY METHOD 02/14/2025 12:22 PM [facility] Total Bilirubin 0.4 0.0 - 1.4 mg/dL LAB CHEMISTRY METHOD 02/14/2025 12:22 PM [facility] Blood Venous blood specimen / Unknown Venipuncture / Unknown 02/14/2025 5:08 AM EDT 02/14/2025 11:08 AM EDT us Katelynn Bee MD LAB BLOOD ORDERABLES Fin al Result [facility] [address] [place] [address], * (ABNORMAL) Lipid panel (10/15/2007) LDL/HDL Ratio 5(A) 0 - 4 Triglycerides 171(A) 0 - 150 mg/dL Cholesterol 259(A) 0 - 200 mg/dL HDL 50 >=40 mg/dL LDL Cholesterol 175(A) 0 - 100 mg/dL Blood Venous blood specimen / Unknown us Historical Provider LAB BLOOD ORDERABLES Stephanie l Result from Last 3 Months or Most Recently Relevant to Health Maintenance Insurance [facility] MEDICARE Member Subscriber Plan / Payer (Ef fective 2013-Present) Name:Ginny Tovar Relation to Subscriber:Self Name:Ginny Tovar Payer ID:[id number] Group ID:[id number] Type:Not on file Address: [place] [address] [place] [id number] Care Teams Knit Goods Mender Relationship Specialty Start Date End Date Meghan Portillo MD [address] [place], [place] PCP - General 12/10/23
--- OUTSIDE RECORDS SUMMARY | 2025-05-24 17:15 | XMS_ITS | Encounter Summary ---
Author Organization [facility] Address [address] [place] [address] Care Team Providers Care Game Design Instructor Name Role Phone Meghan Portillo MD Primary Care Provider +1 -[phone] Encounter Details Date Type Department Care Team (Late st Contact Info) Description 02/13/2025 Lab Requisition [facility] - Main Lab [address] [facility] [place] [phone] Katelynn Bee MD [address] [facility] 1 [place], [place] [phone] Anemia, unspecified; Other disorders of electrolyte and [...] mmol/L LAB CHEMISTRY METHOD 02/14/2025 12:22 PM [facility] Potassium 4.1 3.5 - 5.5 mmol/L LAB CHEMISTRY METHOD 02/14/2025 12:22 PM [facility] Chloride 104 96 - 110 mmol/L LAB CHEMISTRY METHOD 02/14/2025 12:22 PM [facility] CO2 27 21 - 32 mmol/L LAB CHEMISTRY METHOD 02/14/2025 12:22 PM [facility] Anion Gap 9 3 - 11 LAB CHEMISTRY METHOD 02/14/2025 12:22 PM [facility] Glucose 105(H) 70 - 100 mg/dL LAB CHEMISTRY METHOD 02/14/2025 12:22 PM [facility] BUN 20 5 - 25 mg/dL LAB CHEMISTRY METHOD 02/14/2025 12:22 PM [facility] Creatinine 1.12(H) 0.50 - 1.10 mg/dL LAB CHEMISTRY METHOD 02/14/2025 12:22 PM [facility] eGFR 49(L) >=60 mL/min/1. 73m2 LAB CHEMISTRY METHOD 02/14/2025 12:22 PM [facility] Comment:Calculation based on the Chronic Kidney Disease Epidemiology Collaboration (CKD-EPI) equation refit without adjustment for race. BUN/Creatinine Ratio 17.9 LAB CHEMISTRY METHOD 02/14/2025 12:22 PM [facility] Calcium 7.4(L) 8.5 - 10.5 mg/dL LAB CHEMISTRY METHOD 02/14/2025 12:22 PM [facility] AST (SGOT) 34 10 - 42 unit/L LAB CHEMISTRY METHOD 02/14/2025 12:22 PM [facility] ALT (SGPT) 24 10 - 60 unit/L LAB CHEMISTRY METHOD 02/14/2025 12:22 PM [facility] Alkaline Phosphatase 63 42 - 121 unit/L LAB CHEMISTRY METHOD 02/14/2025 12:22 PM [facility] Total Protein 6.2 6.0 - 8.0 g/dL LAB CHEMISTRY METHOD 02/14/2025 12:22 PM [facility] Albumin 3.3 3.2 - 5.0 g/dL LAB CHEMISTRY METHOD 02/14/2025 12:22 PM [facility] Total Bilirubin 0.4 0.0 - 1.4 mg/dL LAB CHEMISTRY METHOD 02/14/2025 12:22 PM [facility] Blood Venous blood specimen / Unknown Venipuncture / Unknown 02/14/2025 5:08 AM EDT 02/14/2025 11:08 AM EDT us Katelynn Bee MD LAB BLOOD ORDERABLES Fin al Result [facility] [address] [place] [address], * (ABNORMAL) Complete blood count (02/14/2025 5:08 AM EDT) WBC 7.7 4.8 - 10.8 K/mcL LAB HEMETOLOGY METHOD 02/14/2025 11:33 AM T [facility] RBC 3.90 3.80 - 4.80 M/mcL LAB HEMETOLOGY METHOD 02/14/2025 11:33 AM [facility] Hemoglobin 11.0(L) 11.5 - 16.0 g/dL LAB HEMETOLOGY METHOD 02/14/2025 11:33 AM [facility] Hematocrit 36.5 35.0 - 47.0 % LAB HEMETOLOGY METHOD 02/14/2025 11:33 AM EDT [facility] MCV 92.6 79.0 - 98.0 FL LAB HEMETOLOGY METHOD 02/14/2025 11:33 AM EDT [facility] MCH 27.9 27.0 - 32.0 pcg LAB HEMETOLOGY METHOD 02/14/2025 11:33 AM EDT [facility] MCHC 30.1(L) 32.0 - 37.0 g/dL LAB HEMETOLOGY METHOD 02/14/2025 11:33 AM EDT [facility] RDW 15.3(H) 11.0 - 15.0 % LAB HEMETOLOGY METHOD 02/14/2025 11:33 AM EDT [facility] Platelets 218 130 - 400 K/mcL LAB HEMETOLOGY METHOD 02/14/2025 11:33 AM EDT [facility] MPV 10.9 7.0 - 11.0 FL LAB HEMETOLOGY METHOD 02/14/2025 11:33 AM EDT [facility] NRBC 0.0 <1.0 % LAB HEMETOLOGY METHOD 02/14/2025 11:33 AM EDT [facility] NRBC Absolute 0.00 <0.10 K/mcL LAB HEMETOLOGY METHOD 02/14/2025 11:33 AM [facility] Blood Venous blood specimen / Unknown Venipuncture / Unknown 02/14/2025 5:08 AM EDT 02/14/2025 11:08 AM EDT us Katelynn Bee MD LAB BLOOD ORDERABLES Fin al Result [facility] [address] [place] [address], documented in this encounter Visit Diagnoses Diagnosis Anemia, unspecified Other disorders of electrolyte and fluid balance, not elsewhere classified documented in this encounter Care Teams Game Design Instructor Relationship Specialty Start Date End Date Meghan Portillo MD [address] [place], [place] PCP - General 12/10/23 documented as of this encounter
--- OUTSIDE RECORDS SUMMARY | 2025-05-24 17:15 | XMS_ITS | Encounter Summary ---
Author Organization [employer] Address [address] [facility] 7t [place] [address] Care Team Providers Care Slate Splitting Supervisor Name Role Phone Meghan Portillo MD Primary Care Provider [phone]- [phone] Reason for Visit * Reason Onset Date Comments Appointment 10/16/2022 Ginny Tovar 1940 Patient called in stating that her appt was can for 10/16 with grabiel stockton for extraction please reach out to patient to rs Encounter Details Date Type Department Care Team ([facility] st Contact Info) Description 10/16/2022 Telephone [facility] ADULT DENTAL [address] [place] [address] Grabiel Stockton, DMD [address] [place], [place] [phone] Appointment (Ginny Tovar 1940 Patient called in [...] Bell - 10/16/2022 8:13 AM EDT Ginny Toavr 1940 Patient called in stating that her appt was can for 10/16 with grabiel stockton for extraction and also stated that she's having pain please reach out to patient to rs documented in this encounter Plan of Treatment Upcoming Encounters Date Type Department Care Team (Late st Contact Info) Description 06/14/2025 3:00 PM EST Office Visit [facility] ADULT DENTAL [address] [place] [address] Kali Kulkarni 505 [place] [address] documented as of this encounter Visit Diagnoses Not on filedocumented in this encounter Care Teams Slate Splitting Supervisor Relationship Specialty Start Date End Date Meghan Portillo MD [address] [place] [address] PCP - General Internal Medicine 06/14/13 [employer] 06/30/24 02/23/25 Jon 02/18/25 documented as of this encounter
--- OUTSIDE RECORDS SUMMARY | 2025-05-24 17:15 | XMS_ITS | Encounter Summary ---
Author Organization [employer] Address [address] [facility] 7 [place] [address] Care Team Providers Care Scanning Coordinator Name Role Phone Meghan Portillo MD Primary Care Provider [phone]- [phone] Reason for Visit * Reason Onset Date Comments requesting a call back 08/14/2022 Encounter Details Date Type Department Care Team ([facility] st Contact Info) Description 08/14/2022 Telephone [facility] MED & PEDS [address] [place], [place] [phone] Meghan Portillo MD [address] [place], [place] [phone] requesting a call back Social History Tobacco [...] 2:16 PM EST TC to pt at [phone]. Pt requesting a lift chair d/t her's [...] 3:00 PM EST Office Visit [facility] ADULT DENTAL [address] [place] [address] Kali Kulkarni [address] [place] [address] documented as of this encounter Visit Diagnoses Diagnosis Primary osteoarthritis of knee, unspecified laterality documented in this encounter Care Teams Scanning Coordinator Relationship Specialty Start Date End Date Meghan Portillo MD [address] [place] [address] PCP - General Internal Medicine 06/14/13 [employer] 06/30/24 02/23/25 Aveanngamaliel 02/18/25 documented as of this encounter
--- OUTSIDE RECORDS SUMMARY | 2025-05-24 17:15 | XMS_ITS | Encounter Summary ---
Author Organization [employer] Address [address] [place] [address] 7t [place] [address] Care Team Providers Care Counter Server Name Role Phone Meghan Portillo MD Primary Care Provider [phone]- [phone] Encounter Details Date Type Department Care Team ([facility] Contact Info) Description 09/05/2023 Orders Only [facility] MED & PEDS [address] [place], [place] [phone] Meghan Portillo MD [address] [place], [place] [phone] Chronic midline low back pain without sciatica [...] Description 06/14/2025 3:00 PM EST Office Visit [facility] ADULT DENTAL [address] [place], [place] [phone] Kali Kulkarni 505 [place], [place] [phone] documented as of this encounter Visit Diagnoses Diagnosis Chronic midline low back pain without sciatica- Primary documented in this encounter Care Teams Counter Server Relationship Specialty Start Date End Date Meghan Portillo MD [address] [place] [address] PCP - General Internal Medicine 06/14/13 [employer] (Work) 06/30/24 02/23/25 Jon 02/18/25 documented as of this encounter
--- OUTSIDE RECORDS SUMMARY | 2025-05-24 17:15 | XMS_ITS | Encounter Summary ---
Author Organization [employer] Address [address] [facility] 7t [place] [address] Care Team Providers Care Medical Office Assistant Name Role Phone Meghan Portillo MD Primary Care Provider [phone]- [phone] Encounter Details Date Type Department Care Team (Late Contact Info) Description 07/05/2024 Orders Only [facility] MED & PEDS [address] [place], [place] [phone] Meghan Portillo MD [address] [place], [place] [phone] Acute idiopathic gout involving toe of left [...] [facility] ADULT DENTAL [address] [place], [place] [phone] Cayla Kali [address] [place] [address] documented as of this encounter Visit Diagnoses Diagnosis 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
--- OUTSIDE RECORDS SUMMARY | 2025-05-24 17:15 | XMS_ITS | Encounter Summary ---
Author Organization [facility] Address [address] [place] [address] Care Team Providers Care Airport Representative Name Role Phone Meghan Portillo MD Primary Care Provider +1 [phone] Encounter Details Date Type Department Care Team (Late st Contact Info) Description 02/05/2025 Lab Requisition [facility] - Main Lab [address] [facility] [place] [phone] Katelynn Bee MD [address] [facility] 1 [place], [place] [phone] Anemia, unspecified; Other disorders of electrolyte and [...] mmol/L LAB CHEMISTRY METHOD 02/07/2025 12:19 PM [facility] Potassium 4.4 3.5 - 5.5 mmol/L LAB CHEMISTRY METHOD 02/07/2025 12:19 PM [facility] Chloride 106 96 - 110 mmol/L LAB CHEMISTRY METHOD 02/07/2025 12:19 PM [facility] CO2 23 21 - 32 mmol/L LAB CHEMISTRY METHOD 02/07/2025 12:19 PM [facility] Anion Gap 9 3 - 11 LAB CHEMISTRY METHOD 02/07/2025 12:19 PM [facility] Glucose 147(H) 70 - 100 mg/dL LAB CHEMISTRY METHOD 02/07/2025 12:19 PM [facility] BUN 14 5 - 25 mg/dL LAB CHEMISTRY METHOD 02/07/2025 12:19 PM [facility] Creatinine 1.07 0.50 - 1.10 mg/dL LAB CHEMISTRY METHOD 02/07/2025 12:19 PM [facility] eGFR 52(L) >=60 mL/min/1. 73m2 LAB CHEMISTRY METHOD 02/07/2025 12:19 PM [facility] Comment:Calculation based on the Chronic Kidney Disease Epidemiology Collaboration (CKD-EPI) equation refit without adjustment for race. BUN/Creatinine Ratio 13.1 LAB CHEMISTRY METHOD 02/07/2025 12:19 PM [facility] Calcium 8.3(L) 8.5 - 10.5 mg/dL LAB CHEMISTRY METHOD 02/07/2025 12:19 PM [facility] AST (SGOT) 24 10 - 42 unit/L LAB CHEMISTRY METHOD 02/07/2025 12:19 PM [facility] ALT (SGPT) 25 10 - 60 unit/L LAB CHEMISTRY METHOD 02/07/2025 12:19 PM EDT [facility] Alkaline Phosphatase 64 42 - 121 unit/L LAB CHEMISTRY METHOD 02/07/2025 12:19 PM [facility] Total Protein 6.4 6.0 - 8.0 g/dL LAB CHEMISTRY METHOD 02/07/2025 12:19 PM [facility] Albumin 3.3 3.2 - 5.0 g/dL LAB CHEMISTRY METHOD 02/07/2025 12:19 PM [facility] Total Bilirubin 0.4 0.0 - 1.4 mg/dL LAB CHEMISTRY METHOD 02/07/2025 12:19 PM [facility] Blood Venous blood specimen / Unknown Venipuncture / Unknown 02/07/2025 8:16 AM EDT 02/07/2025 10:55 AM EDT us Katelynn Bee MD LAB BLOOD ORDERABLES Fin al Result [facility] [address] [place] [address], * (ABNORMAL) Complete blood count (02/07/2025 8:16 AM EDT) WBC 7.2 4.8 - 10.8 K/mcL LAB HEMETOLOGY METHOD 02/07/2025 12:09 PM T [facility] RBC 4.30 3.80 - 4.80 M/mcL LAB HEMETOLOGY METHOD 02/07/2025 12:09 PM [facility] Hemoglobin 12.1 11.5 - 16.0 g/dL LAB HEMETOLOGY METHOD 02/07/2025 12:09 PM [facility] Hematocrit 39.5 35.0 - 47.0 % LAB HEMETOLOGY METHOD 02/07/2025 12:09 PM [facility] MCV 92.3 79.0 - 98.0 FL LAB HEMETOLOGY METHOD 02/07/2025 12:09 PM [facility] MCH 28.3 27.0 - 32.0 pcg LAB HEMETOLOGY METHOD 02/07/2025 12:09 PM [facility] MCHC 30.6(L) 32.0 - 37.0 g/dL LAB HEMETOLOGY METHOD 02/07/2025 12:09 PM [facility] RDW 15.4(H) 11.0 - 15.0 % LAB HEMETOLOGY METHOD 02/07/2025 12:09 PM [facility] Platelets 275 130 - 400 K/mcL LAB HEMETOLOGY METHOD 02/07/2025 12:09 PM [facility] MPV 10.8 7.0 - 11.0 FL LAB HEMETOLOGY METHOD 02/07/2025 12:09 PM [facility] NRBC 0.0 <1.0 % LAB HEMETOLOGY METHOD 02/07/2025 12:09 PM [facility] NRBC Absolute 0.00 <0.10 K/mcL LAB HEMETOLOGY METHOD 02/07/2025 12:09 PM [facility] Blood Venous blood specimen / Unknown Venipuncture / Unknown 02/07/2025 8:16 AM EDT 02/07/2025 10:55 AM EDT us Katelynn Bee MD LAB BLOOD ORDERABLES Fin al Result [facility] [address] [place] [address], documented in this encounter Visit Diagnoses Diagnosis Anemia, unspecified Other disorders of electrolyte and fluid balance, not elsewhere classified documented in this encounter Additional Health Concerns Infection Onset Date Last Indicated Resolved Time C. difficile Rule-Out 02/05/2025 02/04/20252024 11:09 AM EDT documented as of this encounter Care Teams Airport Representative Relationship Specialty Start Date End Date Meghan Portillo MD [address] [place] [address] PCP - General 12/10/23 documented as of this encounter
--- OUTSIDE RECORDS SUMMARY | 2025-05-24 17:15 | XMS_ITS | Encounter Summary ---
Author Organization [employer] Address [address] [facility] [address] [address] 7[address] [place] [address] Care Team Providers Care Payroll Benefits Clerk Name Role Phone Meghan Portillo MD Primary Care Provider [phone] Encounter Details Date Type Department Care Team (Late st Contact Info) Description 03/11/2025 Orders Only [facility] MED & PEDS [address] [place], [place] [phone] Meghan Portillo MD [address] [place], [place] [phone] Primary hypertension (Primary Dx); Acute gout involving toe of left foot, unspecified cause; Fibromyositis; Paroxysmal atrial fibrillation (CMS/HCC) Social History Tobacco Use Types Packs/Day Years [...] 06/14/2025 3:00 PM EST Office Visit [facility] ADULT DENTAL [address] [place] [address] Kali Kulkarni [address] [place] [address] documented as of this encounter Visit Diagnoses Diagnosis Primary hypertension- Primary Unspecified essential hypertension Acute gout involving toe of left foot, unspecified cause Fibromyositis Unspecified myalgia and myositis Paroxysmal atrial fibrillation (CMS/HCC) (HCC) Atrial fibrillation documented in this encounter Additional Health Concerns Assessment Noted Time PHQ-9 Depression Total Score: 7 12/05/19 24 2:33 PM EDT documented as of this encounter Care Teams Payroll Benefits Clerk Relationship Specialty Start Date End Date Meghan Portillo MD [address] [place] [address] PCP - General Internal Medicine 06/14/13 [employer] 02/18/25 documented as of this encounter
--- OUTSIDE RECORDS SUMMARY | 2025-05-24 17:15 | XMS_ITS | Encounter Summary ---
Author Organization [facility] Address [address] [place] [address] Care Team Providers Care Care Worker Name Role Phone Meghan Portillo MD Primary Care Provider [phone] [phone] Encounter Details Date Type Department Care Team (Late st Contact Info) Description 02/18/2025 Lab Requisition [facility] - Main Lab 299 [facility] [place] [phone] Katelynn Bee MD [address] [address] Anemia, unspecified; Other disorders of electrolyte and [...] classified documented in this encounter Care Teams Care Worker Relationship Specialty Start Date End Date Meghan Portillo MD [address] [place] [address] PCP - General 12/10/23 documented as of this encounter
--- OUTSIDE RECORDS SUMMARY | 2025-05-24 17:15 | XMS_ITS | Clinical Summary ---
Author Organization [employer] Address [address] [facility] [address] [place] [address] Care Team Providers Care Railway Signal Electrician Name Role Phone Meghan Portillo MD Primary Care Provider Allergies Active Allergy Reactions Criticality Noted Date Comments Iodinated Contrast Media Rash Low 06/29/2024 Levofloxacin 05/21/2005 Lisinopril Cough 05/24/2025 Medications fluticasone (Flonase) 50 MCG/ACT nasal sprayIndications :Seasonal allergic rhinitis due to other allergic trigger Administer 1-2 sprays into each nostril in the morning. Shake gently. Before first use, prime pump. After use, clean tip and replace cap. 16 g 2 3 Active pantoprazole (Protonix) 40 MG EC tabletIndication s:Gastroesophage al reflux disease without esophagitis TAKE 1 TABLET BY MOUTH ONCE DAILY TAKE 30 MINUTES BEFORE BREAKFAST 30 tablet 11 4 Active carboxymethylcel lulose (Refresh Plus) 0.5 % ophthalmic solution Use as directed for dry eye 4 Active DULoxetine (Cymbalta) [address] capsule Take 1 capsule (20 mg) by mouth 2 times daily. Do not crush or chew. 60 capsule 11 5 026 Active miconazole (Micatin) 2 % creamIndications :Diaper rash Apply topically 2 times daily. 600 mL 11 5 Active Calcium Carb-Cholecalcif zan 600-10 MG-MCG tablet Take 600 mg combined by mouth Once per day. TAKE 1 TABLET BY MOUTH ONCE DAILY 30 tablet 5 5 Active cyanocobalamin (Vitamin B-12) 1000 MCG tablet TAKE 1 TABLET BY MOUTH EVERY MORNING 30 tablet 5 5 Active Multiple Vitamin (Multivitamin) tablet TAKE 1 TABLET BY MOUTH EVERY DAY 30 tablet 5 5 Active albuterol 108 (90 Base) MCG/ACT inhalerIndicatio ns:Moderate persistent asthma without complication INHALE 2 PUFFS BY MOUTH EVERY 4 HOURS NEEDED FOR WHEEZING 18 g 5 Active fexofenadine (Irina Allergy) 180 MG tabletIndication s:Seasonal allergic rhinitis due to other allergic trigger TAKE 1 TABLET BY MOUTH EVERY MORNING 30 tablet 5 5 Active amLODIPine (Norvasc) 5 MG tablet Take 1 tablet by mouth Once per day. 5 Active mirtazapine (Remeron) 15 MG tablet Take 0.5 tablets by mouth at bedtime. 5 Active Vonoprazan Fumarate 20 MG tabletIndication s:Gastroesophage al reflux disease without esophagitis Take 20 mg by mouth in the morning. 60 tablet 5 Active lisinopril 5 MG tabletIndication s:Essential hypertension Take 1 tablet (5 mg) by mouth Once per day. 30 tablet 11 5 026 Active allopurinol (Zyloprim) 100 MG tabletIndication s:Acute gout involving toe of left foot, unspecified cause Take 1 tablet (100 mg) by mouth Once per day. 30 tablet 3 5 Active gabapentin (Neurontin) 600 MG tabletIndication s:Fibromyositis Take 1 tablet (600 mg) by mouth 3 times daily. 90 tablet 3 5 Active apixaban (Eliquis) 5 MG tabletIndication s:Paroxysmal atrial fibrillation (CMS/HCC) (HCC) Take 1 tablet (5 mg) by mouth every 12 (twelve) hours. 60 tablet 3 5 Active metoprolol tartrate (Lopressor) 50 MG tabletIndication s:Primary hypertension Take 1 tablet (50 mg) by mouth every 12 (twelve) hours. 60 tablet 3 5 Active Vonoprazan Fumarate 10 MG tabletIndication s:Gastroesophage al reflux disease without esophagitis Take 10 mg by mouth Once per day. 30 tablet 3 5 Active sucralfate (Carafate) 1 g tabletIndication s:Gastroesophage al reflux disease without esophagitis Take 1 tablet (1 g) by mouth before breakfast, before lunch, before evening meal, and at bedtime. 120 tablet 11 5 026 Active lisinopril 10 MG tablet Take 1 tablet by mouth Once per day. 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 Hypertension 06/21/2013 Osteoarthritis of knee 06/21/2013 Seasonal allergic rhinitis 06/21/2013 Urinary incontinence 06/21/2013 Encounters Date Type Department Care Team Description 05/24/2025 3:15 PM EST Office Visit [facility] [address] [place] [address] Meghan Portillo MD Gastroesophageal reflux disease without esophagitis (Primary Dx); Primary hypertension; Longstanding persistent atrial fibrillation (CMS/HCC) (HCC); Functional diarrhea 05/24/2025 Travel 05/23/2025 Telephone [facility] [address] [place] [address] Meghan Portillo MD Chart Prep 05/17/2025 Patient Outreach [facility] MED[facility] [address] [place] [address] Meghan Portillo MD Pre-visit Planning (Pre visit planning LVM ) 05/13/2025 Telephone [facility] [address] [place] [address] Meghan Portillo MD letter 05/11/2025 11:00 AM EDT Office Visit [facility] ADULT DENTAL [address] [place] [address] Kali Kulkarni 04/13/2025 2:30 PM EDT Office Visit [facility] ADULT DENTAL [address] [place] [address] Kali Kulkarni 04/12/2025 3:00 PM EDT Office Visit [facility] ADULT DENTAL [address] [place] [address] Kali Kulkarni 04/05/2025 Patient Outreach [address] [address] Meghan Portillo MD Transition Of Care (Tcm) (HDF unscheduled LVM ) 04/05/[address] [address] Meghan Portillo MD Hospital Follow-up 03/18/2025 Telephone [facility] [address] [place] [address] Meghan Portillo MD 03/11/2025 Orders Only [facility] [address] [place] [address] Meghan Portillo MD Primary hypertension (Primary Dx); Acute gout involving toe of left foot, unspecified cause; Fibromyositis; Paroxysmal atrial fibrillation (CMS/HCC) 03/11/[address] [address] Meghan Portillo MD [facility] 03/11/2025 Telephone [facility] [address] [place] [address] Meghan Portillo MD 03/08/2025 Results Follow-Up [facility] [address] [place] [address] Yamilex Zamorano, TRISTA CBC auto differential, Basic Metabolic Panel 03/07/2025 Telephone [facility] [address] [place] [address] Meghan Portillo MD chart prep 02/28/2025 1:15 PM EDT Office Visit [facility] [address] [place] [address] Meghan Portillo MD Gastroesophageal reflux disease without esophagitis (Primary Dx); Functional diarrhea; Essential hypertension; Small bowel obstruction (CMS/HCC) 02/28/2025 Travel 02/25/2025 Telephone [facility] PEDS [address] [place] [address] Meghan Portillo MD ECHO APPT 02/25/2025 Telephone [facility] [address] [place] [address] Meghan Portillo MD chart prep 02/23/2025 Patient Outreach [facility] [address] [place], [place] [phone] Meghan Portillo MD Transition Of Care (Tcm) (Discharge summary Request) 02/21/2025 Telephone [facility] [address] [place], [place] [phone] Meghan Portillo MD verbal orders 02/21/2025 Telephone [facility] MED[facility] [address] [place] [address] Meghan Portillo MD Verbal Order from Last 3 Months Immunizations Immunization Administration Dates Next Due Influenza High-dose Quadriva lent Preservative Free 05/28/2022,05/18/2021 Influenza injectable quadriv alent IIV4 with preservative 04/29/2018,05/18/2015 Influenza, High Dose Seasona l, Preservative Free 06/25/2024 Influenza, IIV3, injectable 06/25/2024,1 07/28/2021,05/18/2021,04/29,04/10/2016,05/18/2015,04/05/2014 Pfizer Covid-19 Vaccine 12+ 07/02/2024, Pneumococcal Conjugate PCV 20 12/05/2023 Pneumococcal Polysaccharide PPSV23 03/03/2022, Tdap 12/05/2023 Zoster, live 06/21/2013 Social History [...] Pulse 87 05/24/2025 3:05 PM EST Temperature 36.7 C (98.1 F) 12/07/2024 1:44 PM EDT Respiratory Rate 20 05/24/2025 3:05 PM EST Oxygen Saturation 95% 05/24/2025 3:05 PM EST Inhaled Oxygen Concentration - - Weight 121 kg (266 lb) 05/24/2025 3:05 PM EST Height 161.3 cm (5' 3.5 ) 05/24/2025 3:05 PM EST Body Mass Index 46.38 05/24/2025 3:05 PM EST Plan of Treatment Upcoming Encounters Date Type Department Care Team (Late st Contact Info) Description 06/14/2025 3:00 PM EST Office Visit [facility] ADULT DENTAL [address] [place] [address] Kali Kulkarni [address] [place] [address] Health Maintenance Due Date Last Done Comments Zoster Vaccines (2 of 3) 08/16/2013 06/21/2013 RSV Patients and Patients Aged 60 years or older (1 - 1-dose 75+ series) 2017 Dental Prophylaxis 07/31/2024 01/28/2024 Depression Screening 12/04/2024 12/05/2023, 12/05/19 COVID-19 Vaccine ( season) 2025 07/02/2024, 12/05/2023, 05/28/2022, Additional history exists Influenza Vaccine (#1) 2025 , 06/25/2024, 05/28/2022, Additional history exists Dental Oral Exam 06/11/2025 12/08/2024, , 09/06/2022 Alcohol/Substance Use Screening 08/16/2025 08/16/2024 SDOH Screening 08/16/2025 08/16/2024 Dental X-Ray: Full Mouth 09/07/2025 09/06/2022 Dental X-Ray: Bitewings 12/09/2025 12/09/19, 01/28/2024, 09/06/2022 Tobacco Screening 05/24/2026 05/24/2025 Lipid Panel 12/04/2028 12/05/2023, 08/16/2020 DTaP/Tdap/Td Vaccines [...] Procedure Name Priority Date/Time Associated Diagnosis Comments DENTURE IMPRESSION Routine 05/11/2025 11 :00 AM EDT 8 EXTRACTION, ERUPTED TOOTH OR EXPOSED ROOT (ELEVATION/FORCEPS REMOVAL) Routine 04/13/2025 2:30 PM EDT DENTURE IMPRESSION Routine 04/12/2025 3: 00 PM EDT HELICOBACTER PYLORI AG, EIA, STOOL Routine 03/07/2025 1:22 PM EDT Gastroesophageal reflux disease without esophagitis Functional diarrhea GASTROINTESTINAL PANEL Routine 1:22 PM EDT Gastroesophageal reflux disease without esophagitis Functional diarrhea BASIC METABOLIC PANEL Routine 03/07/2025 1:10 PM EDT Gastroesophageal reflux disease without esophagitis Functional diarrhea CBC WITH AUTO DIFFERENTIAL Routine 03/07/2025 1:10 PM EDT Gastroesophageal reflux disease without esophagitis BITEWINGS - 2 RADIOGRAPHIC IMAGES Routine 12/08/2024 1:00 PM EDT PERIODIC ORAL EVALUATION - ESTABLISHED PATIENT Routine 12/08/2024 1:00 PM EDT Full PROPHYLAXIS - ADULT Routine 024 2:00 PM EDT LIPID PANEL, STANDARD Routine 12/05/2023 2:45 PM EDT Hypercholesterolem ia INTRAORAL - COMPLETE SERIES OF RADIOGRAPHIC IMAGES Routine 09/06/2022 2:00 PM EST from Last 3 Months or Most Recently Relevant to Health Maintenance Results * Stool - Gastrointestinal panel (03/07/2025 1:22 PM EDT) Campylobacter Not Detected Not Detect. [facility] Plesiomonas shigelloides Not Detected Not Detect. [facility] Salmonella Not Detected Not Detect. [facility] Vibrio Not Detected Not Detect. [facility] Vibrio cholerae Not Detected Not Detect. [facility] YERSINIA ENTEROCOLITICA Not Detected Not Detect. [facility] Enteroaggregative E. coli (EAEC) Not Detected Not Detect. [facility] Enteropathogenic E. coli (EPEC) Not Detected Not Detect. [facility] Enterotoxigenic E. coli (ETEC) lt/st Not Detected Not Detect. [facility] Shiga-like toxin-producing E. coli (STEC) stx1/stx2 Not Detected Not Detect. [facility] E coli O157 Not applicable Not Detect. [facility] Comment:E. coli containing t he O157 antigen are a subset ofShiga-like toxin- producing E. coli (STEC). Shigella/Enteroinvasive E. coli (EIEC) Not Detected Not Detect. [facility] Cryptosporidium Not Detected Not Detect. [facility] Cyclospora cayetanensis Not Detected Not Detect. [facility] Entamoeba histolytica Not Detected Not Detect. [facility] Giardia lamblia Not Detected Not Detect. [facility] Adenovirus F 40/41 Not Detected Not Detect. [facility] Astrovirus Not Detected Not Detect. [facility] Norovirus GI/GII Not Detected Not Detect. [facility] Rotavirus A Not Detected Not Detect. [facility] Sapovirus Not Detected Not Detect. [facility] Comment: All results must be correlated with clinical findings.Negative results do not exclude the possibility ofgastrointestinal infection and should not be used as thesole basis for diagnosis, treatment, or other managementdecisions. Virus, bacteria, and parasite nucleic acid maypersist in vivo independently of organism viability.Additionally, some organisms may be carriedasymptomatically.Detection of organism targets does not imply that thecorresponding organisms are infectious or are the causativeagents for clinical symptoms. There is a risk of falsenegative values due to the presence of sequence variants inthe gene targets of the assay, amplification inhibitors inspecimens, or inadequate numbers of organisms foramplification.The identification of several diarrheagenic E. colipathotypes has historically relied upon phenotypiccharacteristics. This panel targets genetic determinantscharacteristic of most pathogenic strains, but may notdetect all strains having phenotypic characteristics of apathotype.The performance of this test has not been established formonitoring treatment of infection with any of the panelorganisms.This assay is performed by Multiplexed PCR, utilizing [employer]. Stool Rectal contents / Unknown 03/07/2025 1:22 PM EDT 03/07/2025 5:35 PM EDT us Meghan Portillo MD LAB MICROBIOLOGY - GENERAL ORDERABLES Final Result Performing Organization Address [facility] Co de Phone Number [facility] [address] [place] [phone] * Helicobacter pylori??Antigen, EIA, Stool (03/07/2025 1:22 PM EDT) H pylori Ag Stool SEE NOTE [facility] Comment:HELICOBACTER PYLORI AG, EIA, STOOL Micro Number: [id number] Test Status: Final Specimen Source: Stool Specimen Quality: Adequate H.pylori Ag: Not Detected Antimicrobials, proton pump inhibitors, and bismuth preparations inhibit H. pylori and ingestion up to two weeks prior to testing may cause false negative results. If clinically indicated the test should be repeated on a new specimen obtained two weeks after discontinuing treatment. Reference Range: Not DetectedTHIS TEST WAS PERFORMED AT:[employer] [address] [id number] COLE MD Stool Rectal contents / Unknown 03/07/2025 1:22 PM EDT 03/07/2025 5:25 PM EDT us Meghan Portillo MD LAB BODY FLUIDS AND STOOLS ORDERABLES Final Result Performing Organization Address [facility] Co de Phone Number [facility] [address] [place] [phone] * CBC auto differential (03/07/2025 1:10 PM EDT) White Blood Count 8.7 4.8 - 10.8 X10*3/uL [facility] Red Blood Count 4.39 4.20 - 5.50 X10*6/uL [facility] Hemoglobin 12.1 12.0 - 16.0 g/dl [facility] Hematocrit 38.8 37.0 - 47.0 % [facility] Mean Corpuscular Volume 88.4 80.0 - 98.0 fL [facility] Mean Corpuscular Hemoglobin 27.6 27.0 - 33.0 pg [facility] Mean Corpuscular HGB Conc 31.2 31.0 - 35.0 g/dl [facility] Red Cell Distribution Width 14.0 11.0 - 16.0 % [facility] Platelet Count 317 160 - 400 X10*3/uL [facility] Mean Platelet Volume 10.3 9.4 - 12.3 fL [facility] Neutrophils Percent Auto 65.5 45 - 73 % [facility] Imm Gran Pct Auto 0.2 0.0 - 0.4 % [facility] Lymphocytes Percent Auto 26.1 20 - 40 % [facility] Monocytes Percent Auto 5.2 2 - 11 % [facility] Eosinophils Percent Auto 2.3 0 - 4 % [facility] Basophils Percent Auto 0.7 0 - 2 % [facility] NRBC Pct Auto 0.0 0.0 - 0.2 /100WBC [facility] Neutrophils Absolute Auto 5.7 2.0 - 8.3 x10*3/uL [facility] Imm Gran Abs Auto 0.02 0.00 - 0.03 X10*3/uL [facility] Lymphocytes Absolute Auto 2.3 1.2 - 4.9 X10*3/uL [facility] Monocytes Absolute Auto 0.5 0.1 - 1.2 X10*3/uL [facility] Eosinophils Absolute Auto 0.2 0.0 - 0.4 X10*3/uL [facility] Basophils Absolute Auto 0.1 0.0 - 0.2 X10*3/uL [facility] NRBC Abs Auto 0.000 0.0 - 0.012 X10*3/uL [facility] Blood Venous blood specimen / Unknown 03/07/2025 1:10 PM EDT 03/07/2025 2:10 PM EDT us Meghan Portillo MD LAB BLOOD ORDERABLES Final Result Performing Organization Address [facility] Co de Phone Number [facility] [address] [place] [phone] * (ABNORMAL) Basic Metabolic Panel (03/07/2025 1:10 PM EDT) Sodium 140 135 - 145 mmol/L [facility] Potassium 3.7 3.3 - 5.1 mmol/L [facility] Chloride 101 96 - 108 mmol/L [facility] Carbon Dioxide 26 22 - 29 mmol/L [facility] Anion Gap 17 12 - 20 [facility] Urea Nitrogen (BUN) 8(L) 9 - 16 mg/dL [facility] Creatinine, Serum 0.89 0.5 - 1.4 mg/dL [facility] Estimated Glomerular Filt Rate >60 [facility] Comment:Chronic Kidney Disea se: Estimated GFR < 60 mL/min/1.50i0Awckia Kidney Disease: Estimated GFR < 15 mL/min/1.73m2 Glucose 133(H) 60 - 115 mg/dL [facility] Calcium 7.3(L) 8.4 - 10.2 mg/dL [facility] Blood Venous blood specimen / Unknown 03/07/2025 1:10 PM EDT 03/07/2025 2:10 PM EDT us Meghan Portillo MD LAB BLOOD ORDERABLES Final Result Performing Organization Address [facility] Co de Phone Number [facility] [address] [place] [phone] * (ABNORMAL) Lipid Panel, Standard (12/05/2023 2:45 PM EDT) Triglycerides 161(H) <150 mg/dL [facility] Comment:Desirable Triglyceri de: less than 150 mg/dLBorderline High Triglyceride 150-199 mg/dLHigh Triglyceride: 200-499 mg/dLVery High Triglyceride: greater than or equal to 5OO mg/dL Cholesterol 216(H) <200 mg/dL [facility] Comment:Desirable Cholestero l: less than 200 mg/dLBorderline High Cholesterol: 200-239 mg/dLHigh Cholesterol: greater than 239 mg/dL LDL Cholesterol Calculated 137(H) <100 mg/dL [facility] Comment:Desirable LDL: less than 100 mg/dLNear Optimal/Above Optimal LDL: 110- 129 mg/dLBorderline High LDL: 130-159 mg/dLHigh LDL: 160-189 mg/dLVery High LDL: greater than or equal to 190 mg/dL HDL Cholesterol 47 >40 mg/dL [facility] Comment:Desirable HDL: great er than 40 mg/dL Note: This HDL assay may give artificially low results in patients with liver disease. Blood Venous blood specimen / Unknown 12/05/2023 2:45 PM EDT 12/05/2023 6:02 PM EDT us Meghan Portillo MD LAB BLOOD ORDERABLES Final Result [facility] [address] [place] [address] [phone] from Last 3 Months or Most Recently Relevant to Health Maintenance [facility] [employer] (HMO D-SNP) DENTAL [facility] Care Teams Railway Signal Electrician Relationship Specialty Start Date End Date Meghan Portillo MD [address] [place] [address] [place] [address] PCP - General Internal Medicine 06/14/13 [facility] 02/18/25
--- OUTSIDE RECORDS SUMMARY | 2025-05-24 17:15 | XMS_ITS | Encounter Summary ---
Author Organization [employer] Address [address] [place] [address] Care Team Providers Care Premises Technician Name Role Phone Meghan Portillo MD Primary Care Provider [phone] Encounter Details Date Type Department Care Team (Late Contact Info) Description 03/05/2024 Orders Only [facility] [address] [place] [address] Meghan Portillo MD [address] [place], [place] [phone] Gastroesophageal reflux disease without esophagitis (Primary Dx) [...] Description 06/14/2025 3:00 PM EST Office Visit [facility] [address] [place], [place] [phone] Kali Kulkarni [address] [place] [address] documented as of this encounter Visit Diagnoses Diagnosis Gastroesophageal reflux disease without esophagitis- Primary Esophageal reflux documented in this encounter Additional Health Concerns Assessment Noted Time PHQ-9 Depression Total Score: 7 12/05/19 24 2:33 PM EDT documented as of this encounter Care Teams Premises Technician Relationship Specialty Start Date End Date Meghan Portillo MD [address] [place] [address] PCP - General Internal Medicine 06/14/13 [employer] 06/30/24 02/23/25 Jon 02/18/25 documented as of this encounter
--- OUTSIDE RECORDS SUMMARY | 2025-05-24 17:15 | XMS_ITS | Encounter Summary ---
Author Organization [employer] Address [address] [place] [address] Care Team Providers Care Speed Winder Name Role Phone Meghan Portillo MD Primary Care Provider [phone] Encounter Details Date Type Department Care Team (Late st Contact Info) Description 12/08/2024 Orders Only [facility] [address] [place], [place] [phone] Meghan Portillo MD [address] [place], [place] [phone] Social History Tobacco Use Types Packs/Day Years [...] 3:00 PM EST Office Visit [facility] AD[facility] [address] [place] [address] Kali Kulkarni [address] [place] [address] documented as of this encounter Visit Diagnoses Not on filedocumented in this encounter Additional Health Concerns Assessment Noted Time PHQ-9 Depression Total Score: 7 12/05/19 24 2:33 PM EDT documented as of this encounter Care Teams Speed Winder Relationship Specialty Start Date End Date Meghan Portillo MD [address] [place] [address] PCP - General Internal Medicine 06/14/13 [employer] 06/30/24 02/23/25 [employer] 02/18/25 documented as of this encounter
[2025-05-24 18:47] LABS: Anion Gap 14 (12-20); Blood Urea Nitrogen 10 mg/dL (9-16); Calcium 7.5 mg/dL (8.4-10.2); Carbon Dioxide 32 mmol/L (22-29); Chloride 100 mmol/L (96-108); Estimated Glomerular Filt Rate > 60; Magnesium 0.8 mg/dL (1.6-2.6); Potassium 3.3 mmol/L (3.3-5.1); Sodium 143 mmol/L (135-145)
== END 2025-05-24 15:46 | disposition home or self-care (01) ==
LOC: HO.CHCLDS 15:45
PROVIDERS: Visit Provider Internal Medicine
DX: K21.9 Gastro-esophageal reflux disease without esophagitis (principal)
CPT/HCPCS: 36415; 80048; 83735